=== PATIENT | female | born 1960 | race Caucasian/White ===

== ENCOUNTER 2018-07-20 07:44 | Inpatient (IN) | payer MEDICARE, MEDICAID, SELFPAY ==
[2018-07-20] VITALS (7 sets, daily range): BP systolic 111–138; BP diastolic 60–86; PULSE 91–115; RESP 8–24; TEMP 36.6–37.5; O2SAT 93–99
--- NOTE | 2018-07-20 08:06 | ED.GENADUL_ITS ---
Discharge Plan Disposition Patient Disposition: [facility] Condition: Stable Discharge Details Chief Complaint: SOB Clinical Impression: COPD with acute exacerbation, Ascites, Cirrhosis Reason For Visit: ASCITE, ?SBP, EXACERBATION OF COPD Admit Date/Time: 07/20/18 10:40 Admit Provider: Linda Cadena Attending Provider: Linda Cadena Primary Care Provider: Unknown,Unknown ED Provider: Katy Castellano Discharge Data Discharge Date/Time-TO BE ENTERED AT DEPARTURE: 07/20/18 12:21 Medical Decision Making 58-year-old female with history of COPD and hepatitis C who presents with productive cough and shortness of breath since last night, and diffuse abdominal swelling and intermittent pain for the past 5 years, worsening pain in the left upper quadrant epigastric region today while in the ED. Patient is somewhat of a poor historian, and difficult to obtain full details on the history of her abdominal pain and swelling. She states she drinks twice weekly and denies any recent heavy alcohol use. Heart rate tachycardic. EKG notes a rate of 103, sinus tachycardia no acute ST findings. Patient has diminished breath sounds throughout. She has significant abdominal swelling and distention, tenderness in the epigastric and left upper quadrant. Concern for cirrhosis, pancreatitis, PE. Will place an IV, small bolus IV fluids, labs, urinalysis, CT chest for PE, abdomen and pelvis, and give DuoNeb and steroids. 1000 -- d/w radiologist -- CT noted cirrhosis, ascites, varices, gallstones, ascending colon thickening. No PE. Normal pancreas. Labs reviewed and note transaminitis, moderately increased compared to previous. T. bili 3.9. Troponin negative. Normal WBC. Platelets 101. INR 1.5. Na 131. K 3.2 and Mg 1.6, will replete. 1015 -- d/w surgery power generation technician - will evaluate pt for possible paracentesis. Will call hospitalist for admission. 1030 -- d/w hospitalist - accepts pt for admission. Will admit for ascites of unknown onset and acute copd exacerbation. Medical Records Medical records reviewed: Yes I reviewed the patient's medical records. Imaging Data Radiologic Study: Radiologist's impression: CT SCAN OF THE ABDOMEN AND PELVIS: No priors. The liver is diffusely hypodense. The liver has a lobulated contour with an enlarged left lobe suspicious for hepatic cirrhosis. No hepatic mass is seen. The portal, superior mesenteric and splenic veins are patent. There are stones seen within the gallbladder which is distended. No biliary ductal dilatation is present. The pancreas is unremarkable. The spleen is unremarkable. The adrenal glands are unremarkable. The kidneys show normal and symmetric enhancement. No solid renal mass or obstruction is seen. Hepatic cysts are present. The urinary bladder is intact. The reproductive organs are unremarkable. The abdominal aorta shows mild atherosclerosis. No aneurysmal dilatation. No significant abdominal or pelvic adenopathy or pneumoperitoneum is present. There is a moderate amount of perihepatic and perisplenic ascites and a moderately large amount of pelvic ascites. There are enhancing vessels seen at the gastroesophageal junction and in the anterior abdomen consistent with varices. There is diverticulosis of the colon but no evidence of acute diverticulitis. The does appear to be low attenuation bowel wall thickening in the ascending colon and proximal transverse colon. The remainder of the bowel appears grossly unremarkable. Degenerative changes are seen in the spine. IMPRESSION: 1. Findings most suggestive of hepatic cirrhosis with abdominal and pelvic ascites and varices. 2. Cholelithiasis and gallbladder distention. No biliary ductal dilatation. 3. Hypoattenuating bowel wall thickening in the ascending colon and proximal transverse colon. Inflammatory or infectious colitis can not be excluded. CT SCAN OF THE CHEST: CT angiography was performed with multi slice acquisition and multi planar and 3D reconstruction. There is no evidence of a pulmonary embolus. The thoracic aorta shows atherosclerosis but no aneurysmal dilatation. The heart size is within normal limits. No significant pericardial effusion is seen. No evidence of right ventricular dysfunction is present. No significant thoracic adenopathy is present. No pleural effusion or pneumothorax is identified. Moderately severe emphysematous changes are seen in the lungs particularly the right upper lobe. There are several bullae seen in the lungs. There is are large bullae seen in the lower lobes. No focal consolidating infiltrates or pulmonary nodules are seen. The tracheobronchial tree is unremarkable. Degenerative changes are seen in the spine. There is a right convex scoliosis of the thoracic spine noted. IMPRESSION: 1. No evidence of a pulmonary embolus. Thoracic aortic dissection or aneurysm. 2. Moderately severe emphysema. Lab Data Lab results reviewed: Yes I reviewed the patient's lab results. ECG Data Attestation: I personally reviewed and interpreted this ECG (s) as follows: Interpretation: Rate of 103, sinus tachycardia, no acute ST elevation or depression. QTc 495. QRS 90. HPI General Mode of arrival: EMS . Date/Time Provider Initiated Documentation: 07/20/18 07:58 . Limitations to Documentation: no limitations . Information obtained by: patient . HPI Narrative: Patient is a 58-year-old female who presents to the ED with a complaint of productive cough and shortness of breath since last night. She states her shortness of breath is worse with exertion. Upon further evaluation in room, patient also complains of left upper abdominal pain that she thinks started since she got here. She is unclear on the timeframe and then also states she thinks it might have started 5 years ago. Patient is a poor historian. She states she has not eaten anything for a long time and has not been eating well for the past 5 years. She does also admit to diffuse abdominal swelling for the past 5 years, which is getting progressively worse. She states she has not seen a doctor for the past 7 years. She denies any known fever, chest pain, recent travel, recent surgery, leg pain or swelling. She denies any recent hospital admission. She states she did not receive the flu shot this year. Related Data Home Medications Medication Instructions Recorded Confirmed [id number] 2 tab PO Q6H PRN 07/20/18 07/20/18 [Excedrin Migraine] Allergies Allergy/AdvReac Type Severity Reaction Status Date / Time No Known Allergies Allergy Unverified 07/20/18 07:50 General Stated Complaint: SOB RK: 3 Review of Systems Review of Systems All systems reviewed & are unremarkable except as noted in HPI and below Constitutional Reports as per HPI, Denies chills and Denies fever(s) Eyes Denies blurry vision ENT Denies dizziness, Denies sore throat and Denies throat swelling Cardiovascular Denies chest pain and Reports dyspnea Respiratory Reports cough and Reports dyspnea Gastrointestinal Reports abdominal pain, Denies diarrhea and Denies vomiting Genitourinary Denies hematuria and Denies dysuria Musculoskeletal Denies back pain and Denies numbness Integumentary/Breasts Denies lesions and Denies rash Neurologic Denies dizziness, Denies focal weakness and Denies numbness Allergic/Immunologic Denies throat swelling PFSH Medical History Alcohol abuse (Chronic) Tobacco abuse (Chronic) COPD (chronic obstructive pulmonary disease) (Chronic) Hepatitis C (Chronic) Surgical History History of bilateral tubal ligation (Acute) Social History Smoking and Tabacco status: Current every day Tobacco: How many years used: 44 Pasive smoking exposure: Yes quit status: considering quitting counseling given: provider counseling and support medications alcohol intake: current alcohol intake frequency: 3 or more drinks per day Alcohol type: wine substance use type: former substance user, IV drugs and prescription drug Exam Const General: cooperative and healthy appearing Orientation: alert and awake HENMT Head: normal to inspection Ears: hearing grossly normal bilaterally General nose exam: external nose normal Face and sinus: normal facial exam Mouth: oral mucosae normal Teeth and gingiva: dentition normal Throat: posterior oropharynx normal Eyes General: appearance normal, both eyes and all related structures Eyelids: eyelids normal Pupils: PERRL EOM: EOM intact bilaterally Neck Neck: normal visual inspection Lymphatic: no lymphadenopathy noted Chest Chest: normal inspection of the chest Resp Effort & Inspection: normal respiratory effort and able to speak in complete sentences Auscultation: diminished lung sounds bilaterally throughout Cardio Rate: tachycardic Rhythm: regular rhythm GI Inspection: distended Palpation: firm, no guarding, no hepatosplenomegaly, no masses and tender (throughout, worse in LUQ, epigastric) Auscultation: normal bowel sounds Skin General skin exam: no rashes or lesions noted Neuro General: alert and awake Cognition: normal cognition Speech: speech normal Gait: normal gait Motor: muscle tone normal throughout Sensory Exam: no sensory deficits noted Extrem General: normal to inspection, full ROM and no edema Psych Appearance: grossly normal Mental Status: mental status grossly normal Speech and Movement: speech and movement normal Affect: normal affect Thought Process: normal Course Vital Signs Temperature 98.1 F 07/20/18 07:47 Pulse 115 H 07/20/18 07:47 Respiratory Rate 24 07/20/18 07:47 Blood Pressure 138/78 07/20/18 07:47 Pulse Oximetry 97 07/20/18 07:47 Temperature 98.1 F 07/20/18 07:47 Temperature Source Skin 07/20/18 07:47 Pulse 115 H 07/20/18 07:47 Respiratory Rate 24 07/20/18 07:47 Respiratory Effort 07/20/18 07:53 Respiratory Depth Normal 07/20/18 07:53 Blood Pressure 138/78 07/20/18 07:47 Pulse Oximetry 97 07/20/18 07:47 Oxygen Delivery Method Room Air 07/20/18 07:47 Oxygen Flow Rate 0 07/20/18 07:47 Pain Level 0 07/20/18 07:47
--- NOTE | 2018-07-20 08:16 | DI.CT_ITS ---
SYMPTOMS/DIAGNOSIS: SHORTNESS OF BREATH, LUQ ABD PAIN CT SCAN OF THE ABDOMEN AND PELVIS: No priors. The liver is diffusely hypodense. The liver has a lobulated contour with an enlarged left lobe suspicious for hepatic cirrhosis. No hepatic mass is seen. The portal, superior mesenteric and splenic veins are patent. There are stones seen within the gallbladder which is distended. No biliary ductal dilatation is present. The pancreas is unremarkable. The spleen is unremarkable. The adrenal glands are unremarkable. The kidneys show normal and symmetric enhancement. No solid renal mass or obstruction is seen. Hepatic cysts are present. The urinary bladder is intact. The reproductive organs are unremarkable. The abdominal aorta shows mild atherosclerosis. No aneurysmal dilatation. No significant abdominal or pelvic adenopathy or pneumoperitoneum is present. There is a moderate amount of perihepatic and perisplenic ascites and a moderately large amount of pelvic ascites. There are enhancing vessels seen at the gastroesophageal junction and in the anterior abdomen consistent with varices. There is diverticulosis of the colon but no evidence of acute diverticulitis. The does appear to be low attenuation bowel wall thickening in the ascending colon and proximal transverse colon. The remainder of the bowel appears grossly unremarkable. Degenerative changes are seen in the spine. IMPRESSION: 1. Findings most suggestive of hepatic cirrhosis with abdominal and pelvic ascites and varices. 2. Cholelithiasis and gallbladder distention. No biliary ductal dilatation. 3. Hypoattenuating bowel wall thickening in the ascending colon and proximal transverse colon. Inflammatory or infectious colitis can not be excluded. CT SCAN OF THE CHEST: CT angiography was performed with multi slice acquisition and multi planar and 3D reconstruction. There is no evidence of a pulmonary embolus. The thoracic aorta shows atherosclerosis but no aneurysmal dilatation. The heart size is within normal limits. No significant pericardial effusion is seen. No evidence of right ventricular dysfunction is present. No significant thoracic adenopathy is present. No pleural effusion or pneumothorax is identified. Moderately severe emphysematous changes are seen in the lungs particularly the right upper lobe. There are several bullae seen in the lungs. There is are large bullae seen in the lower lobes. No focal consolidating infiltrates or pulmonary nodules are seen. The tracheobronchial tree is unremarkable. Degenerative changes are seen in the spine. There is a right convex scoliosis of the thoracic spine noted. IMPRESSION: 1. No evidence of a pulmonary embolus. Thoracic aortic dissection or aneurysm. 2. Moderately severe emphysema. The findings were discussed with the emergency department on the date of the examination.
[2018-07-20 08:36] LABS: Abs Immature Grans 0.03 k/cumm (0.0-0.09); Absolute Basophil Count 0.06 k/cumm (0.0-0.2); Absolute Eosinophil Count 0.01 k/cumm (0.0-0.7); Absolute Lymphocyte Count 1.08 k/cumm (1.2-3.4); Absolute Monocyte Count 0.57 k/cumm (0.11-0.7); Absolute Neutrophil Count 5.47 k/cumm (1.2-6.7); Basophils % 0.8; Eosinophils % 0.1; HCT 39.4 % (36.0-46.0); HGB 13.6 g/dL (12.0-15.5); Immature Grans % 0.4; Mean Corp. HGB Concentration 34.5 g/dL (32.0-36.0); Mean Corpuscular Volume 104.2 fL (80-95); Mean Platelet Volume 9.8 fL (8.0-11.0); Monocytes % 7.9; Neutrophils % 75.8; Platelet Count 101 x1000/uL (130-400); RBC 3.78 m/cumm (4.00-5.20); RBC Distribution Width 18.6 % (11.7-14.6); White Blood Cell Count 7.22 k/cumm (4.4-10.8)
[2018-07-20] MEDS: methylPREDNISolone SUCC 125 MG VIAL IVP (08:36)
[2018-07-20] MEDS: Albuterol/Ipratropium 3 ML UPD VIAL UPD ×2 (08:37→14:48)
[2018-07-20] MEDS: Normal Saline 250 ML 500 ML IV (08:37)
--- NOTE | 2018-07-20 08:47 | NUR.NOTE ---
#[address] [facility] Nursing Note:
[2018-07-20 08:56] LABS: ALT 118 U/L (12-78); AST 354 U/L (15-37); Albumin 2.1 g/dL (3.4-5.0); Alkaline Phosphatase 236 U/L (46-116); Anion Gap 11.1 mmol/L (3-11); BUN 3 mg/dL (7-18); Bilirubin, Total 3.9 mg/dL (0.2-1.0); CO2 26.9 mmol/L (21.0-32.0); CREATININE 0.64 mg/dL (0.55-1.02); Calcium 7.8 mg/dL (8.5-10.1); Chloride 93 mmol/L (98-107); Glucose 98 mg/dL (70-100); INR 1.5 (0.9-1.1); Lipase 138 U/L (73-393); Magnesium 1.6 mg/dL (1.8-2.4); NT-proBNP 109 pg/mL; PTT Activated 27.2 sec (21.0-31.4); Potassium 3.2 mmol/L (3.5-5.1); Prothrombin Time 14.7 sec (9.3-11.0); Sodium 131 mmol/L (136-145)
[2018-07-20 08:59] LABS: Troponin I < 0.02 ng/mL (0.00-0.06)
[2018-07-20 09:13] LABS: Ammonia < 10 umol/L (11-32)
[2018-07-20] MEDS: Omnipaque 350 MG/ML 100 ML BTL IV (09:32)
[2018-07-20 09:58] LABS: Bilirubin Moderate (Negative); Blood Negative (Negative); Clarity Clear; Glucose Negative (Negative); Ketones 40 mg/dL (Negative); Leukocyte Esterase Negative (Negative); Nitrite Negative (Negative); pH 6.5 (5-8)
[2018-07-20] MEDS: MAGNESIUM SULFATE 1 GM/100 ML BAG IVPB ×2 (10:01→20:03)
[2018-07-20] MEDS: Potassium Chloride 20 MEQ TABCR 40 MEQ PO (10:01)
--- NOTE | 2018-07-20 10:08 | NUR.NOTE ---
patient sitting up on stretcher edge, feels better to do so, awaiting results Nursing Note:
--- NOTE | 2018-07-20 11:49 | NUR.NOTE ---
report given to ROGER Torres Nursing Note:
--- NOTE | 2018-07-20 12:21 | NUR.NOTE ---
patient transported to floor via RN Nursing Note:
--- NOTE | 2018-07-20 12:22 | W.SURGCON ---
Date of service: 07/20/18 Time of Service: 12:23 Assessment and Plan (1) Ascites with chronic active hepatitis due to toxic liver disease: Current visit: Yes Status: Acute called to see pt by Dr. Castellano in ED regarding abdom pain and cirrhosis. I did review the CT w/ radiology. I don't feel she has enough ascites that this would be causing acute abdominal pain or that there is enough in the abdom to safely do a tap. pt has acute on chronic decompensated Hep C . Her cirrhosis is quite extensive and severe. She needs to get her s/s under control and then have a liver bx and go see GI for treatment. needs to stop smoking adn drinking. no tylenol. will follow (2) Cirrhosis, alcoholic: Current visit: Yes Status: Acute as above (3) Hepatic cirrhosis due to chronic hepatitis C infection: Current visit: Yes Status: Acute as above (4) Hep C w/o coma, chronic: Current visit: Yes Status: Acute as above (5) COPD (chronic obstructive pulmonary disease) with emphysema: Current visit: Yes Status: Acute per hosp. stop smoking and needs inhaler regimen (6) Migraine headache: Current visit: Yes Status: Chronic (7) Chronic post-traumatic stress disorder (PTSD): Current visit: Yes Status: Acute (8) Gallstones: Current visit: Yes Status: Acute small, chronic, and of no consequence History of Present Illness Chief Complaint: abdominal pain and cough Consults Consult date: 07/20/18 Requesting physician: Katy Castellano Review of Systems Constitutional Reports anorexia, Reports body ache(s), Reports difficulty sleeping, Reports fatigue, Reports headache(s), Reports lethargy, Reports poor appetite, Reports weakness and Reports weight loss Comments: no fever/chills. increase in abdominal pain and coughing Eyes Reports system reviewed and no additional complaints, except as docu Comments: no jaundice. no eye. current photophobia due to migraine ENT Reports headache(s) Comments: poor dentition Cardiovascular Comments: no cp or sob. + cough but not productive. smokes 1/4 ppd. is not on any meds Respiratory Denies hemoptysis, Reports pain on inspiration, Reports pain with cough, Denies stridor and Denies wheezing Gastrointestinal Reports abdominal pain, Denies melena, Reports bloating, Denies hematochezia, Reports early satiety, Reports nausea and Reports vomiting Comments: hx of hepC for about 20-30 yrs and never treated. pt does not take tylenol. pt denies extensive hx of drinking. lately she has been drinking more- 1/2 to 3/4 750cc bottle of wine every other day. pt notes decrease in appetite. She says she is not losing wt. she has to make her self throw- up to feel better. not vomiting blood. occ notes blood when she wipes- things she has hemorrhoids. not had a CE in the past. notes increase in abdominal girth Genitourinary Comments: denies Musculoskeletal Comments: migraines Neurologic Reports headache(s) and Reports weakness Psychiatric Comments: is on disability for PTSD Endocrine Reports fatigue Allergic/Immunologic Denies wheezing [facility] Medical History COPD (chronic obstructive pulmonary disease) (Chronic) Hepatitis C (Chronic) Surgical History History of bilateral tubal ligation (Acute) Social History Smoking and Tabacco status: Current every day alcohol intake: current alcohol intake frequency: a few times a week substance use type: former substance user, IV drugs and prescription drug Exam Narrative Exam Narrative: acute migraine HENMT Head: normal to inspection Ears: hearing grossly normal bilaterally General nose exam: external nose normal Mouth: tongue normal Teeth and gingiva: caries and poor dentition Resp Effort & Inspection: normal respiratory effort and able to speak in complete sentences Auscultation: diminished lung sounds Other: +cough non productive Cardio Jugular venous pressure: no JVD Rate: regular rate Rhythm: regular rhythm GI Inspection: obesity and striae Palpation: firm, no guarding, no hernias and no masses Auscultation: hypoactive bowel sounds Other: dissented and tender. pain appears to be more in lower abdominal. pt has the appearance of signif ascites. liver quit enlarged and signs of chronic chirosiss and varicis on CT Extrem General: no clubbing, cyanosis or edema Other: no signif pedal edema Results Last Vital Signs Temp 36.7 C 07/20/18 07:47 Pulse 100 H 07/20/18 10:07 Resp 20 07/20/18 10:07 BP 111/60 07/20/18 10:07 Pulse Ox 98 07/20/18 10:07 Labs : 07/20/18 08:24 07/20/18 08:24 Laboratory Results - last 24 hr 07/20/18 07/20/18 07/20/18 08:24 08:24 08:24 WBC 7.22 RBC 3.78 L Hgb 13.6 Hct 39.4 MCV 104.2 H MCH 36.0 H MCHC 34.5 RDW 18.6 H Plt Count 101 L MPV 9.8 Immature Gran % 0.4 Neutrophils % 75.8 Lymphocytes % 15.0 Monocytes % 7.9 Eosinophils % 0.1 Basophils % 0.8 Absolute Neutrophils 5.47 Absolute Lymphocytes 1.08 L Absolute Monocytes 0.57 Absolute Eosinophils 0.01 Absolute Basophils 0.06 PT 14.7 H INR 1.5 H APTT 27.2 Sodium 131 L Potassium 3.2 L Chloride 93 L Carbon Dioxide 26.9 Anion Gap 11.1 H BUN 3 L Creatinine 0.64 Estimated GFR/1.73 m2 >= 60.00 Glucose 98 Calcium 7.8 L Magnesium 1.6 L Total Bilirubin 3.9 H AST 354 H ALT 118 H Alkaline Phosphatase 236 H Ammonia Troponin I < 0.02 NT-Pro-B Natriuret Pep 109 Total Protein 9.0 H Albumin 2.1 L Lipase 138 Urine Color Urine Clarity Urine pH Ur Specific [place] Urine Protein Urine Ketones Urine Blood Urine Nitrite Urine Bilirubin Urine Urobilinogen Ur Leukocyte Esterase Urine Glucose 07/20/18 07/20/18 08:55 09:50 WBC RBC Hgb Hct MCV MCH MCHC RDW Plt Count MPV Immature Gran % Neutrophils % Lymphocytes % Monocytes % Eosinophils % Basophils % Absolute Neutrophils Absolute Lymphocytes Absolute Monocytes Absolute Eosinophils Absolute Basophils PT INR APTT Sodium Potassium Chloride Carbon Dioxide Anion Gap BUN Creatinine Estimated GFR/1.73 m2 Glucose Calcium Magnesium Total Bilirubin AST ALT Alkaline Phosphatase Ammonia < 10 L Troponin I NT-Pro-B Natriuret Pep Total Protein Albumin Lipase Urine Color [place] Urine Clarity Clear Urine pH 6.5 Ur Specific [place] 1.010 Urine Protein Negative Urine Ketones 40 H Urine Blood Negative Urine Nitrite Negative Urine Bilirubin Moderate H Urine Urobilinogen 4.0 H Ur Leukocyte Esterase Negative Urine Glucose Negative Imaging Abdomen CT scan report/results: other (I did review the CT w/ rads. again- signs of severe long standing cirrhosis w/ extensive varices. She does have ascites- but not a lg amount (not lg enough to safely tap). gb is disstended w/ sm stones. CBD and pancrease are nl. no bowel obstructions. no masses )
[2018-07-20] MEDS: Heparin 5,000 UNITS/ML VIAL 5000 UNITS SC (14:35)
[2018-07-20] MEDS: oxyCODONE 5 MG TAB PO (17:27)
[2018-07-20] MEDS: Furosemide 20 MG TAB PO (18:33)
[2018-07-20] MEDS: Spironolactone 50 MG TAB PO (18:33)
[2018-07-20] MEDS: Normal Saline Flush 10 ML SYR IVP ×3 (18:45→22:39)
--- NOTE | 2018-07-20 19:49 | HPE_ITS ---
Date of service: 07/20/18 Time of Service: 18:00 Assessment and Plan (1) Ascites with chronic active hepatitis due to toxic liver disease: Current visit: Yes Status: Acute Ideally, the patient would have paracenthesis. Surgery evaluated the patient and feels that there is not a big enough pocket of fluid for paracenthesis. We will obtain an ultrasound. Meanwhile, there is a concern for SBP given abdominal pain. I doubt colitis due to reports of no change in bowel habits. Will cover the patient with rocephin and start aldactone/lasix. If tolerates, would then add a beta charmaine as there is evidence of varices. Will obtain hepatitis studies. Will need follow up with GI for EGD. Checking hemoccult. (2) Acute exacerbation of chronic obstructive pulmonary disease (COPD): Current visit: Yes Status: Acute Mild. I suspect that a lot of the shortness of breath has more to do with abdominal distention. For this reason, will diurese. Obtain sputum culture. Cover with azithromycin, rocephin, PO steroids as I hear no bronchospasm, and nebs. (3) Cirrhosis, alcoholic: Current visit: Yes Status: Chronic As above (4) Hepatic cirrhosis due to chronic hepatitis C infection: Current visit: Yes Status: Chronic As above (5) Varices of other sites: Current visit: Yes Status: Acute Will need outpatient EGD. For now, start PPI and consider beta charmaine if tolerates aldactone/lasix. (6) Breast pain in female: Current visit: Yes Status: Acute Likely due to edema. Will attempt to obtain mammography vs ultrasound tomorrow. (7) Alcohol abuse: Current visit: Yes Status: Chronic Placed on CIWA and written for a dose of IV thiamine. WIll provide PO vitamins as patient tolerates PO. (8) Alcoholic ketoacidosis: Current visit: Yes Status: Acute Should resolve without intervention (9) Hypomagnesemia: Current visit: Yes Status: Acute repleted - monitor (10) Hypokalemia: Current visit: Yes Status: Acute repleted - monitor (11) Tobacco abuse: Current visit: Yes Status: Acute cessation advised - patient is already trying to quit. Provide nicotrol. (12) Discharge planning issues: Current visit: Yes Status: Acute Full code (13) DVT prophylaxis: Current visit: Yes Status: Acute SCD's + TEDs as there is evidence of varices on imaging. History of Present Illness Chief Complaint: Abdominal pain and swelling Narrative: Ms Fong is a 58 year old female with PMHx of Hepatitis C, COPD, alcohol and tobacco abuse who presented to [facility] ED today complaining of abdominal swelling that developed 2-3 months ago, became painful about 1 week ago, and that she had never had before. The pain is in her LLQ as well as in her epigastrium. She states she has not had any nausea, that her bowel movements are regular and have not changed in color. She has not seen tarry stools or blood. She also reports a cough productive of green sputum and shortness of breath x 1 - 2 weeks. No wheezing. She does not wear oxygen or use inhalers or any medications at home. She also reports L breast pain, reproducible with palpation, that she only noticed today. She is not up to date on her mammogram. She does have a history of a breast nodule on the R, but states it was benign. Review of Systems Review of Systems 12 systems reviewed. Pertinent positives and negatives are as per HPI. Additionally, the patient reports having dark urine today. [facility] Medical History Alcohol abuse (Chronic) Tobacco abuse (Chronic) COPD (chronic obstructive pulmonary disease) (Chronic) Hepatitis C (Chronic) Surgical History History of bilateral tubal ligation (Acute) Social History Smoking and Tabacco status: Current every day Tobacco: How many years used: 44 Pasive smoking exposure: Yes quit status: considering quitting counseling given: provider counseling and support medications alcohol intake: current alcohol intake frequency: 3 or more drinks per day Alcohol type: wine substance use type: former substance user, IV drugs and prescription drug Meds Home Medications Medication Instructions Recorded Confirmed Type [id number] 2 tab PO Q6H PRN 07/20/18 07/20/18 History [Excedrin Migraine] Allergies Allergy/AdvReac Type Severity Reaction Status Date / Time No Known Allergies Allergy Unverified 07/20/18 07:50 Exam Narrative Exam Narrative: General: Jaundiced middle aged female, sitting uncomfortably in bed, with very distended abdomen/ascites, having hiccups, anxious Neurological: A&Ox3, no focal deficits Psychiatric: anxious, otherwise appropriate speech pattern/content Skin: no bruises/rashes; jaundiced HEENT: atraumatic, normocephalic, EOMI, Dry MM, clear oropharynx, no submandibular or cervical lymphadenopathy, no goiter or JVD Cardiovascular: RRR, mildly tachycardic, no m/r/g Lungs: Diminished at B bases, but otherwise clear to auscultation B Breat exam: both breasts are diffusely TTP, but there is also a chest wall tenderness component. I do not palpate any nodules Gastrointestinal: abdomen very distended with ascites, diffusely tender Extremities: +1 edema BLE's, no clubbing or cyanosis, 2+ pedal pulses B Results Imaging Additional studies: CT abdomen/pelvis: 1. Findings most suggestive of hepatic cirrhosis with abdominal and pelvic ascites and varices. 2. Cholelithiasis and gallbladder distention. No biliary ductal dilatation. 3. Hypoattenuating bowel wall thickening in the ascending colon and proximal transverse colon. Inflammatory or infectious colitis can not be excluded. CT chest: 1. No evidence of a pulmonary embolus. Thoracic aortic dissection or aneurysm. 2. Moderately severe emphysema. Labs : 07/20/18 08:24 07/20/18 08:24 Laboratory Results - last 24 hr 07/20/18 07/20/18 07/20/18 08:24 08:24 08:24 WBC 7.22 RBC 3.78 L Hgb 13.6 Hct 39.4 MCV 104.2 H MCH 36.0 H MCHC 34.5 RDW 18.6 H Plt Count 101 L MPV 9.8 Immature Gran % 0.4 Neutrophils % 75.8 Lymphocytes % 15.0 Monocytes % 7.9 Eosinophils % 0.1 Basophils % 0.8 Absolute Neutrophils 5.47 Absolute Lymphocytes 1.08 L Absolute Monocytes 0.57 Absolute Eosinophils 0.01 Absolute Basophils 0.06 PT 14.7 H INR 1.5 H APTT 27.2 Sodium 131 L Potassium 3.2 L Chloride 93 L Carbon Dioxide 26.9 Anion Gap 11.1 H BUN 3 L Creatinine 0.64 Estimated GFR/1.73 m2 >= 60.00 Glucose 98 Calcium 7.8 L Magnesium 1.6 L Total Bilirubin 3.9 H AST 354 H ALT 118 H Alkaline Phosphatase 236 H Ammonia Troponin I < 0.02 NT-Pro-B Natriuret Pep 109 Total Protein 9.0 H Albumin 2.1 L Lipase 138 Urine Color Urine Clarity Urine pH Ur Specific [place] Urine Protein Urine Ketones Urine Blood Urine Nitrite Urine Bilirubin Urine Urobilinogen Ur Leukocyte Esterase Urine Glucose 07/20/18 07/20/18 08:55 09:50 WBC RBC Hgb Hct MCV MCH MCHC RDW Plt Count MPV Immature Gran % Neutrophils % Lymphocytes % Monocytes % Eosinophils % Basophils % Absolute Neutrophils Absolute Lymphocytes Absolute Monocytes Absolute Eosinophils Absolute Basophils PT INR APTT Sodium Potassium Chloride Carbon Dioxide Anion Gap BUN Creatinine Estimated GFR/1.73 m2 Glucose Calcium Magnesium Total Bilirubin AST ALT Alkaline Phosphatase Ammonia < 10 L Troponin I NT-Pro-B Natriuret Pep Total Protein Albumin Lipase Urine Color [place] Urine Clarity Clear Urine pH 6.5 Ur Specific [place] 1.010 Urine Protein Negative Urine Ketones 40 H Urine Blood Negative Urine Nitrite Negative Urine Bilirubin Moderate H Urine Urobilinogen 4.0 H Ur Leukocyte Esterase Negative Urine Glucose Negative Last Vital Signs Temp 37.5 C 07/20/18 15:49 Pulse 107 H 07/20/18 15:49 Resp 22 07/20/18 15:49 BP 120/81 07/20/18 15:49 Pulse Ox 95 07/20/18 15:49
[2018-07-20] MEDS: Pantoprazole 40 MG VIAL IVP (20:02)
[2018-07-20] MEDS: THIAMINE 100 MG in Normal Saline 100 ML 200 MG IVPB (21:31)
[2018-07-20] MEDS: Azithromycin 500 MG VIAL (21:43)
[2018-07-20] MEDS: LORazepam 1 MG TAB PO/SL (22:06)
[2018-07-21] MEDS: Normal Saline Flush 10 ML SYR IVP ×5 (03:51→20:13)
--- NOTE | 2018-07-21 04:02 | NUR.NOTE ---
Nursing Note: Pt was medicated twice for abdominal pain that radiate towards the left side of chest area, and with good relief. Lorazepam po given for CIWA score of 5 and pt verbalized of itchiness on left IV site.. Independent to toilet without concern. Needs attended.Call lights at reach.
[2018-07-21 04:45] VITALS: BP 112/69; PULSE 94; RESP 18; TEMP 36.5; O2SAT 93
--- NOTE | 2018-07-21 07:23 | PDOC.CMIN ---
- If Service Date Differs Date of service: 07/21/18 Time of Service: 07:23 Care Management Initial Assess REASON FOR HOSPITALIZATION:: Ascites with chronic active hepatitis due to toxic liver disease, COPD Exacerbation. PAST MEDICAL HISTORY/PAST SURGICAL HISTORY:: Alcohol abuse (Chronic). Tobacco abuse (Chronic). COPD (chronic obstructive pulmonary disease) (Chronic). Hepatitis C (Chronic). History of bilateral tubal ligation (Acute) PREVIOUS FUNCTIONAL STATUS/SOCIAL/FAMILY SUPPORTS:: Lisseth resides at the [facility], and states that she enjoys it there. She states that she previously resided in [place], and moved to [facility] to help her mom with Parkinsons. Lisseth has two children, one in [place] and one in [place] whom are supportive. 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 Lisseth no longer drives and depends on [facility] for transportation. CURRENT FUNCTIONAL STATUS:: Currently Lisseth is lying in bed when this technical writer visits this morning, she is pleasant and receptive to discussion. ADVANCE DIRECTIVES:: None on file Has patient been provided with information about the portal?: Yes Did the patient sign up for the portal?: No CODE STATUS:: Full Code INSURANCE COVERAGE / FINANCIAL ISSUES:: Medicare, Medicaid CURRENT HOME/COMMUNITY SERVICES/EQUIPMENT:: Currently Lisseth has no medical equipment in the community. She has a counselor Sherman Martinez that she sees 2x/month, and states that she also volunteers at [employer]. Lisseth attends AA meetings throughout the week, she reports being sober for 21 years, and recently quitting smoking. Lisseth has reported to other staff members that she continues to consume alcohol. PRIMARY CARE PHYSICIAN:: No [facility] to assist with obtaining new PCP POTENTIAL DISCHARGE NEEDS:: F/U appointment with PCP PATIENT/FAMILY EDUCATION NEEDS:: Review DC instructions, any limitations, and ongoing DC planning discussion. Discuss 'Ask Me Three' ANTICIPATED BARRIERS TO DISCHARGE:: None identified at this time. TRANSPORTATION:: Via [facility] PLAN:: Lisseth will return home with no anticipated services. She will F/U with PCP and plan of care as prescribed. Lisseth to transport via [facility] at time of DC.
--- NOTE | 2018-07-21 07:31 | INITIAL_ITS ---
- If Service Date Differs Date of service: 07/21/18 Time of Service: 07:23 Care Management Initial Assess REASON FOR HOSPITALIZATION:: Ascites with chronic active hepatitis due to toxic liver disease, COPD Exacerbation. PAST MEDICAL HISTORY/PAST SURGICAL HISTORY:: Alcohol abuse (Chronic). Tobacco abuse (Chronic). COPD (chronic obstructive pulmonary disease) (Chronic). Hepatitis C (Chronic). History of bilateral tubal ligation (Acute) PREVIOUS FUNCTIONAL STATUS/SOCIAL/FAMILY SUPPORTS:: Lisseth resides at the [facility], and states that she enjoys it there. She states that she previously resided in [place], and moved to [facility] to help her mom with Parkinsons. Lisseth has two children, one in [place] and one in [place] whom are supportive. 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 Lisseth no longer drives and depends on [facility] for transportation. CURRENT FUNCTIONAL STATUS:: Currently Lisseth is lying in bed when this newswriter visits this morning, she is pleasant and receptive to discussion. ADVANCE DIRECTIVES:: None on file Has patient been provided with information about the portal?: Yes Did the patient sign up for the portal?: No CODE STATUS:: Full Code INSURANCE COVERAGE / FINANCIAL ISSUES:: Medicare, Medicaid CURRENT HOME/COMMUNITY SERVICES/EQUIPMENT:: Currently Lisseth has no medical equipment in the community. She has a counselor Sherman Martinez that she sees 2x/month, and states that she also volunteers at [employer]. Lisseth attends AA meetings throughout the week, she reports being sober for 21 years, and recently quitting smoking. Lisseth has reported to other staff members that she continues to consume alcohol. PRIMARY CARE PHYSICIAN:: No [facility] to assist with obtaining new PCP POTENTIAL DISCHARGE NEEDS:: F/U appointment with PCP PATIENT/FAMILY EDUCATION NEEDS:: Review DC instructions, any limitations, and ongoing DC planning discussion. Discuss 'Ask Me Three' ANTICIPATED BARRIERS TO DISCHARGE:: None identified at this time. TRANSPORTATION:: Via [facility] PLAN:: Lisseth will return home with no anticipated services. She will F/U with PCP and plan of care as prescribed. Lisseth to transport via [facility] at time of DC.
[2018-07-21 07:35] LABS: Abs Immature Grans 0.03 k/cumm (0.0-0.09); Absolute Basophil Count 0.01 k/cumm (0.0-0.2); Absolute Lymphocyte Count 1.25 k/cumm (1.2-3.4); Absolute Monocyte Count 0.83 k/cumm (0.11-0.7); Basophils % 0.1; HCT 34.9 % (36.0-46.0); HGB 11.9 g/dL (12.0-15.5); Immature Grans % 0.3; Lymphocytes % 10.8; Mean Corp. HGB Concentration 34.1 g/dL (32.0-36.0); Mean Corpuscular Hemoglobin 36.3 pg (27.0-33.0); Mean Corpuscular Volume 106.4 fL (80-95); Mean Platelet Volume 9.6 fL (8.0-11.0); Monocytes % 7.1; Neutrophils % 81.7; Platelet Count 93 x1000/uL (130-400); RBC 3.28 m/cumm (4.00-5.20); RBC Distribution Width 18.9 % (11.7-14.6); White Blood Cell Count 11.62 k/cumm (4.4-10.8)
--- NOTE | 2018-07-21 08:00 | DI.US_ITS ---
SYMPTOM/DIAGNOSIS: ABD PAIN, ASCITES ABDOMEN ULTRASOUND: Routine examination. Comparison CT scan is 07/20/18. The aorta was not visualized due to overlying bowel. The IVC is unremarkable. The liver measures 18 cm. in length. It is hyperechoic with a coarsened echotexture. No hepatic mass is seen. The contour of the liver is nodular. The findings are suspicious for hepatic cirrhosis. There are mobile stones seen within the gallbladder. There is gallbladder sludge and pericholecystic fluid. The gallbladder wall measures .4 cm. Common duct is within normal limits at .6 cm. The pancreas was not visualized due to overlying bowel. The spleen is normal in size. The kidneys are unremarkable. There is mild to moderate abdominal ascites seen in all four quadrants. Portal venous flow is hepatopetal. IMPRESSION: 1. Appearance of the liver suggests hepatic cirrhosis. 2. Cholelithiasis and gallbladder sludge. Gallbladder wall mildly thickened. Acute cholecystitis cannot be entirely excluded however some of these findings may be related to the patient's liver status and ascites. 3. Mild to moderate abdominal ascites.
[2018-07-21 08:01] LABS: ALT 97 U/L (12-78); AST 285 U/L (15-37); Absolute Neutrophil Count 9.49 k/cumm (1.2-6.7); Albumin 1.8 g/dL (3.4-5.0); Alkaline Phosphatase 169 U/L (46-116); BUN 4 mg/dL (7-18); Bilirubin, Total 2.7 mg/dL (0.2-1.0); CREATININE 0.74 mg/dL (0.55-1.02); Calcium 7.3 mg/dL (8.5-10.1); Chloride 98 mmol/L (98-107); Glucose 115 mg/dL (70-100); Magnesium 2.1 mg/dL (1.8-2.4); Potassium 3.4 mmol/L (3.5-5.1); Sodium 133 mmol/L (136-145); TSH (W/Ref FT4) 1.82 uIU/mL (0.358-3.74); Total Protein 7.5 g/dL (6.4-8.2)
[2018-07-21 08:24] LABS: Anisocytosis 1+; Diff Comment RBC Morph Reviewed; Macrocytosis 2+; Poikilocytes 1+; Polychromasia Present
[2018-07-21 08:31] VITALS: BP 124/86; PULSE 92; RESP 18; TEMP 36.3; O2SAT 93
[2018-07-21] MEDS: predniSONE 20 MG TAB 60 MG PO (09:44)
[2018-07-21] MEDS: Spironolactone 50 MG TAB PO (09:44)
[2018-07-21] MEDS: Pantoprazole 40 MG TABCR PO (09:45)
[2018-07-21] MEDS: Thiamine 100 MG TAB PO (09:45)
[2018-07-21] MEDS: Multivitamin TAB 1 TAB PO (09:46)
[2018-07-21] MEDS: Furosemide 20 MG TAB PO (09:46)
[2018-07-21] MEDS: Folic Acid 1 MG TAB PO (09:46)
[2018-07-21] MEDS: Potassium Chloride 20 MEQ TABCR 40 MEQ PO (10:43)
--- NOTE | 2018-07-21 11:40 | PHARADMIT ---
Addendum entered by Lupis Matamoros 07/23/18 14:47: Ceftriaxone & Azithromycin day#4 tonight CIWA 1 starting Gabapentin and Oxazepam standing orders to help withdrawl symptoms Paracentesis resulted in ~ 200ml fluid, pain 02/07, afebrile, weight up ~1.3kg since admission lytes ok although Mag & K+ oral replacement, Prednisone decreased to 40mg daily Cultures pending for Paracentesis x 2 samples Original Note: Admission Pharmacy Clinical Review Ascites, Exacerbation of COPD Code Status Full Code Current Weight 72.575 kg Renally Cleared and Narrow Therapeutic Index Meds CrCl~61.86ml/min QTc Value / Action Taken QTC 495 BP Control, Fever BP 124/86 HR 90-100's Afebrile Electrolytes reviewed K+ 3.4 Na++ 133 Mag 2.1 DVT Prophylaxis SCD's Opiate Usage / Scheduled Bowel Regimen Ordered Oxy/MS-yes bowel meds Plt/SCr for Heparin / Enoxaparin Plt 93 SCr 0.74 INR for Warfarin H/H stable, WBC/Bands H/H 11.9/34.9 WBC 11.62 (Prednisone) Antibiotic appropriateness Azithromycin 500mg IV/Rocephin IV (no chest Xray?) Today 07/21 is day#2 in th evening Cultures and Sensitivities Micro sputum pending (possible contamination) Surgical ABX d/c within 24 hr DM control / Insulin Dosing BG 115 Heart Failure (Check EF%) (KEVIN's, B-Block, Diuretics) Lasix, Spironolactone IV to PO Switch Home Meds Reviewed Home Meds Not Ordered Excedrin, Prazosin, Seroquel, Lorazepam Comments CIWA:1 Ascites pain: 10/07 Surgical consult for abdominal tap/drain ascites? CT results: Chronic active hepatitis C Mammogram or Ultrasound today of abdomen/breasts Pt reportedly looks Jaundiced LFT's and Bilirubin levels elevated, but trending down Follow diuresis/weight
[2018-07-21 11:59] VITALS: BP 110/71; PULSE 98; RESP 18; TEMP 36.5; O2SAT 93
[2018-07-21 14:06] VITALS: PULSE 103; RESP 24; RESP 4; RESP 7; O2SAT 95
[2018-07-21] MEDS: Albuterol/Ipratropium 3 ML UPD VIAL UPD (14:06)
[2018-07-21 16:00] VITALS: BP 101/62; PULSE 98; RESP 18; TEMP 36.8; O2SAT 92
--- NOTE | 2018-07-21 18:20 | PGE_ITS ---
Date of Service Date of service: 07/21/18 Time of Service: 15:15 Assessment and Plan (1) Ascites with chronic active hepatitis due to toxic liver disease: Current visit: Yes Status: Acute Continue aldactone. Ultrasound done today - will review with general surgery to see if they feel there is enough fluid to drain. Continue empiric rocephin though I now doubt SBP - patient has preserved mental status. Will need GI follow up. Hepatitis studies are pending. Hemoccult pending. (2) Acute exacerbation of chronic obstructive pulmonary disease (COPD): Current visit: Yes Status: Acute Mild. Improved. Continue diuresis. Add incentive spirometry. Continue azithromycin, rocephin, PO steroids and nebs. (3) Cirrhosis, alcoholic: Current visit: Yes Status: Chronic As above (4) Hepatic cirrhosis due to chronic hepatitis C infection: Current visit: Yes Status: Chronic As above (5) Varices of other sites: Current visit: Yes Status: Acute Will need outpatient EGD. Continue PPI and consider beta charmaine tomorrow after 1 day of diuresis. (6) Breast pain in female: Current visit: Yes Status: Acute Likely due to edema. Will need to have outpatient mammography. (7) Alcohol abuse: Current visit: Yes Status: Chronic Continue CIWA, prn ativan, PO vitamins as patient tolerates PO. (8) Alcoholic ketoacidosis: Current visit: Yes Status: Acute Should resolve without intervention (9) Hypomagnesemia: Current visit: Yes Status: Acute repleted - monitor (10) Hypokalemia: Current visit: Yes Status: Acute repleted - monitor (11) Tobacco abuse: Current visit: Yes Status: Acute cessation advised - patient is already trying to quit. Provide nicotrol. (12) Discharge planning issues: Current visit: Yes Status: Acute Full code (13) DVT prophylaxis: Current visit: Yes Status: Acute SCD's + TEDs as there is evidence of varices on imaging. Subjective Interval history since last seen: Ms Fong states she feels a little better. Denies dizziness. Her cough is less productive, sputum no longer green. Continues to report chest pain - in her breasts, especially her left. Her mammogram will have to be done as outpatient - she verbalized understanding. Denies nausea, vomiting. No BM's since being in the hospital. Abdominal pain is a little better. Exam Narrative Exam Narrative: General: Jaundiced middle aged female, laying in bed at a 30 degree angle, looks more comfortable, A&Ox3 HEENT: EOMI, Dry MM Cardiovascular: RRR, mildly tachycardic, no m/r/g Lungs: Diminished at B bases, but otherwise clear to auscultation B Gastrointestinal: abdomen very distended with ascites, less tender today. There is very minimal RUQ tenderness. Extremities: +1 edema BLE's, no clubbing or cyanosis, 2+ pedal pulses B Objective Objective Clinical Data: Abnormal lab results 07/21/18 07/21/18 Range/Units 07:08 07:08 WBC 11.62 H D (4.4-10.8) k/cumm RBC 3.28 L (4.00-5.20) m/cumm Hgb 11.9 L (12.0-15.5) g/dL Hct 34.9 L (36.0-46.0) % MCV 106.4 H (80-95) fL MCH 36.3 H (27.0-33.0) pg RDW 18.9 H (11.7-14.6) % Plt Count 93 L (130-400) x1000/uL Absolute Neutrophils 9.49 H (1.2-6.7) k/cumm Absolute Monocytes 0.83 H (0.11-0.7) k/cumm Sodium 133 L (136-145) mmol/L Potassium 3.4 L (3.5-5.1) mmol/L BUN 4 L (7-18) mg/dL Glucose 115 H (70-100) mg/dL Calcium 7.3 L (8.5-10.1) mg/dL Total Bilirubin 2.7 H (0.2-1.0) mg/dL Conjugated Bilirubin 1.80 H (0.00-0.20) mg/dL AST 285 H (15-37) U/L ALT 97 H (12-78) U/L Alkaline Phosphatase 169 H (46-116) U/L Albumin 1.8 L (3.4-5.0) g/dL Vital Signs Temperature 36.8 C 07/21/18 16:00 Temperature Source Tympanic 07/21/18 16:00 Pulse 98 H 07/21/18 16:00 Pulse Rhythm Regular 07/21/18 08:00 Respiratory Rate 18 07/21/18 16:00 Respiratory Effort Short of Breath 07/21/18 08:00 Respiratory Depth Normal 07/21/18 08:00 Respiratory Pattern Normal 07/21/18 08:00 Blood Pressure 101/62 07/21/18 16:00 Pulse Oximetry 92 L 07/21/18 16:00 Oxygen Delivery Method Room Air 07/21/18 16:00 Oxygen Flow Rate 0 07/21/18 16:00 Pain Level 7 07/21/18 18:13 Comment 07/21/18 04:45 Intake & Output 07/20/18 07/21/18 07/21/18 23:59 11:59 23:59 Intake Total 761 / 1011 1110 / 1360 250 / 1360 Output Total 1250 / 1250 350 / 350 Balance -489 / -239 760 / 1010 250 / 1010 Weight 72.575 kg Intake: IV 121 / 371 60 / 60 Oral 640 / 640 1050 / 1300 250 / 1300 Output: Urine 1250 / 1250 350 / 350 Other: Urine Color Yellow Pale Straw Yellow Urine Appearance Clear Clear Urine Odor Normal None Voiding Methods Toilet Toilet Laboratory Results WBC 11.62 k/cumm (4.4-10.8) H D 07/21/18 07:08 RBC 3.28 m/cumm (4.00-5.20) L 07/21/18 07:08 Hgb 11.9 g/dL (12.0-15.5) L 07/21/18 07:08 Hct 34.9 % (36.0-46.0) L 07/21/18 07:08 MCV 106.4 fL (80-95) H 07/21/18 07:08 MCH 36.3 pg (27.0-33.0) H 07/21/18 07:08 MCHC 34.1 g/dL (32.0-36.0) 07/21/18 07:08 RDW 18.9 % (11.7-14.6) H 07/21/18 07:08 Plt Count 93 x1000/uL (130-400) L 07/21/18 07:08 MPV 9.6 fL (8.0-11.0) 07/21/18 07:08 Immature Gran % 0.3 07/21/18 07:08 Neutrophils % 81.7 07/21/18 07:08 Lymphocytes % 10.8 07/21/18 07:08 Monocytes % 7.1 07/21/18 07:08 Eosinophils % 0.0 07/21/18 07:08 Basophils % 0.1 07/21/18 07:08 Absolute Neutrophils 9.49 k/cumm (1.2-6.7) H 07/21/18 07:08 Absolute Lymphocytes 1.25 k/cumm (1.2-3.4) 07/21/18 07:08 Absolute Monocytes 0.83 k/cumm (0.11-0.7) H 07/21/18 07:08 Absolute Eosinophils 0.00 k/cumm (0.0-0.7) 07/21/18 07:08 Absolute Basophils 0.01 k/cumm (0.0-0.2) 07/21/18 07:08 Differential Comment Rbc morph reviewed 07/21/18 07:08 RBC Morphology See below 07/21/18 07:08 Polychromasia Present 07/21/18 07:08 Poikilocytosis 1+ 07/21/18 07:08 Anisocytosis 1+ 07/21/18 07:08 Macrocytosis 2+ 07/21/18 07:08 PT 14.7 sec (9.3-11.0) H 07/20/18 08:24 INR 1.5 (0.9-1.1) H 07/20/18 08:24 APTT 27.2 sec (21.0-31.4) 07/20/18 08:24 Sodium 133 mmol/L (136-145) L 07/21/18 07:08 Potassium 3.4 mmol/L (3.5-5.1) L 07/21/18 07:08 Chloride 98 mmol/L (98-107) 07/21/18 07:08 Carbon Dioxide 31.0 mmol/L (21.0-32.0) 07/21/18 07:08 Anion Gap 4.0 mmol/L (3-11) 07/21/18 07:08 BUN 4 mg/dL (7-18) L 07/21/18 07:08 Creatinine 0.74 mg/dL (0.55-1.02) 07/21/18 07:08 Estimated GFR/1.73 m2 >= 60.00 (mL/min/1.73m2) 07/21/18 07:08 Glucose 115 mg/dL (70-100) H 07/21/18 07:08 Calcium 7.3 mg/dL (8.5-10.1) L 07/21/18 07:08 Magnesium 2.1 mg/dL (1.8-2.4) 07/21/18 07:08 Total Bilirubin 2.7 mg/dL (0.2-1.0) H 07/21/18 07:08 Conjugated Bilirubin 1.80 mg/dL (0.00-0.20) H 07/21/18 07:08 AST 285 U/L (15-37) H 07/21/18 07:08 ALT 97 U/L (12-78) H 07/21/18 07:08 Alkaline Phosphatase 169 U/L (46-116) H 07/21/18 07:08 Ammonia < 10 umol/L (11-32) L 07/20/18 08:55 Troponin I < 0.02 ng/mL (0.00-0.06) 07/20/18 08:24 NT-Pro-B Natriuret Pep 109 pg/mL (-299) 07/20/18 08:24 Total Protein 7.5 g/dL (6.4-8.2) 07/21/18 07:08 Albumin 1.8 g/dL (3.4-5.0) L 07/21/18 07:08 Lipase 138 U/L (73-393) 07/20/18 08:24 TSH 1.82 uIU/mL (0.358-3.74) 07/21/18 07:08 Urine Color [place] (Yellow) 07/20/18 09:50 Urine Clarity Clear 07/20/18 09:50 Urine pH 6.5 (5-8) 07/20/18 09:50 Ur Specific [place] 1.010 (1.005-1.025) 07/20/18 09:50 Urine Protein Negative mg/dL (Negative) 07/20/18 09:50 Urine Ketones 40 mg/dL (Negative) H 07/20/18 09:50 Urine Blood Negative (Negative) 07/20/18 09:50 Urine Nitrite Negative (Negative) 07/20/18 09:50 Urine Bilirubin Moderate (Negative) H 07/20/18 09:50 Urine Urobilinogen 4.0 EU/dL (Up TO 0.2) H 07/20/18 09:50 Ur Leukocyte Esterase Negative (Negative) 07/20/18 09:50 Urine Glucose Negative mg/dL (Negative) 07/20/18 09:50 US abdomen: 1. Appearance of the liver suggests hepatic cirrhosis. 2. Cholelithiasis and gallbladder sludge. Gallbladder wall mildly thickened. Acute cholecystitis cannot be entirely excluded however some of these findings may be related to the patient's liver status and ascites. 3. Mild to moderate abdominal ascites.
[2018-07-21] MEDS: LORazepam 1 MG TAB PO/SL (20:08)
[2018-07-21] MEDS: Docusate Sodium 100 MG CAP PO (20:08)
[2018-07-21] MEDS: AZITHROMYCIN 500 MG in Normal Saline 500 ML 166.6 MG IVPB (20:11)
[2018-07-21] MEDS: oxyCODONE 5 MG TAB PO (20:13)
[2018-07-21 21:23] VITALS: BP 124/79; PULSE 97; RESP 18; O2SAT 95
[2018-07-22 00:12] VITALS: BP 124/76; PULSE 95; RESP 18; TEMP 36.6; O2SAT 94
[2018-07-22 03:05] VITALS: BP 148/100; PULSE 86; RESP 18; TEMP 36.8; O2SAT 96
[2018-07-22] MEDS: Normal Saline Flush 10 ML SYR IVP ×5 (03:09→20:15)
--- NOTE | 2018-07-22 04:19 | NUR.NOTE ---
Nursing Note: At 1930 hrs. beginning of the shift, patient was crying and increasingly anxious, she verbalized of being neglected, requested to get nicotrol and pain med was not given The communications writer checked the pc it was documented that morphine was given around 1800 hrs and she denied because it was not on her list. Nursing assessment done and scored on CIWA of 7. Lorazepam po given and oxy and pt able to slept and woke up in good spirit.
[2018-07-22] MEDS: Pantoprazole 40 MG TABCR PO (06:21)
[2018-07-22] MEDS: oxyCODONE 5 MG TAB PO ×3 (06:25→20:49)
[2018-07-22 07:11] LABS: Abs Immature Grans 0.07 k/cumm (0.0-0.09); Absolute Basophil Count 0.01 k/cumm (0.0-0.2); Absolute Eosinophil Count 0.01 k/cumm (0.0-0.7); Absolute Lymphocyte Count 2.37 k/cumm (1.2-3.4); Absolute Monocyte Count 0.74 k/cumm (0.11-0.7); Absolute Neutrophil Count 8.88 k/cumm (1.2-6.7); Basophils % 0.1; Eosinophils % 0.1; HCT 35.9 % (36.0-46.0); HGB 12.6 g/dL (12.0-15.5); Immature Grans % 0.6; Lymphocytes % 19.6; Mean Corp. HGB Concentration 35.1 g/dL (32.0-36.0); Mean Corpuscular Hemoglobin 37.4 pg (27.0-33.0); Mean Corpuscular Volume 106.5 fL (80-95); Mean Platelet Volume 9.5 fL (8.0-11.0); Monocytes % 6.1; Neutrophils % 73.5; RBC 3.37 m/cumm (4.00-5.20); RBC Distribution Width 19.9 % (11.7-14.6); White Blood Cell Count 12.08 k/cumm (4.4-10.8)
[2018-07-22] MEDS: Furosemide 20 MG TAB PO (07:28)
[2018-07-22] MEDS: Folic Acid 1 MG TAB PO (07:28)
[2018-07-22] MEDS: Thiamine 100 MG TAB PO (07:28)
[2018-07-22] MEDS: Multivitamin TAB 1 TAB PO (07:29)
[2018-07-22] MEDS: Docusate Sodium 100 MG CAP PO ×2 (07:29→20:51)
[2018-07-22 07:33] LABS: ALT 96 U/L (12-78); AST 261 U/L (15-37); Alkaline Phosphatase 206 U/L (46-116); BUN 6 mg/dL (7-18); Bilirubin, Direct 1.69 mg/dL (0.00-0.20); Bilirubin, Total 2.6 mg/dL (0.2-1.0); Calcium 7.5 mg/dL (8.5-10.1); Chloride 99 mmol/L (98-107); Glucose 82 mg/dL (70-100); Potassium 4.1 mmol/L (3.5-5.1); Sodium 132 mmol/L (136-145)
[2018-07-22] MEDS: predniSONE 20 MG TAB 60 MG PO (07:35)
[2018-07-22 08:18] LABS: Platelet Count 96 x1000/uL (130-400)
[2018-07-22 08:19] LABS: Anisocytosis 2+; Diff Comment RBC Morph Reviewed
[2018-07-22 08:20] LABS: Macrocytosis 2+; Poikilocytes 1+; Polychromasia Present
[2018-07-22 08:35] VITALS: BP 123/79; PULSE 88; RESP 20; TEMP 36.8; O2SAT 94
[2018-07-22] MEDS: Spironolactone 50 MG TAB PO (08:37)
[2018-07-22 11:30] VITALS: BP 153/99; PULSE 104; RESP 20; TEMP 37.6; O2SAT 96
[2018-07-22] MEDS: Furosemide 20 MG/2 ML VIAL IVP (11:48)
--- NOTE | 2018-07-22 12:44 | ROE_ITS ---
Date of service: 07/22/18 Time of Service: 12:40 Operative Note DATE OF PROCEDURE: 07/22/18 PRE-OP DIAGNOSIS: acites secondary to cirrhosis from hep C adn ETOH POST-OP DIAGNOSIS: same PROCEDURE: Paracentesis SURGEON: [place] ANESTHESIA: local ESTIMATED BLOOD LOSS: 2 PATHOLOGY: other TOURNIQUET TIME: 0 COMPLICATIONS: None Patient was transported to: no change Patient's condition: stable Implants: 0 Indications: new onset abdominal ascites and abdominal pain/SOB Findings: small amount of ascites in discrete pockets Procedure Description: Ms. Mariee is a 4-year-old female I was asked to see at the request of Dr. Cadena regarding paracentesis for diagnostic as well as symptom control. Patient was admitted initially on 07/09/2014 with new onset of liver failure. She did have an ultrasound done which shows small pockets of fluid. Consent was obtained explaining risks and benefits of the procedure including but not limited to: Bleeding, infections, damage to internal organs that could result in necessary surgery, or prolonged leakage of fluid. Ultrasound is used to locate fluid. It is not discrete pockets. The largest is in the left upper quadrant patient is patent placed in left decubitus position so that the pocket is in the dependent position. The area is prepped and draped in sterile fashion using ChloraPrep scrub solution timeout is performed identifying the patient and the procedure and the patient agrees. 5 cc and 1% lidocaine plain is used to anesthetize the area. Cook needle was used to cannulate the pocket. 200 cc of straw-colored non-turbid/clear fluid is removed. This is sent for a erobic /anaerobic culture and Gram stain, cell count, pH, albumin/protein, amylase, glucose. Sterile compression dressing is applied patient tolerated procedure well without complication. There is no bleeding or fluid leakage. Patient can resume regular activities.
--- NOTE | 2018-07-22 13:25 | W.PM.PROGNOT ---
Date of Service Date of service: 07/22/18 Time of Service: 13:26 Assessment and Plan (1) Hepatic cirrhosis due to chronic hepatitis C infection: Current visit: Yes Status: Chronic s/p paracentesis. no pain no bleeding or drainage. fluid studies and cult's ordered cont w/diuresis and beta blockers and supportive care can shower in am 07/23. F/u w/ GI for treatment of Hep C Subjective Patient reports: feels better, pain is less, voiding w/o difficulty and shortness of breath Interval history since last seen: feels distended adn full. still SOB, but better than on admission. +diereses Exam Const General: cooperative and comfortable Orientation: alert, awake and oriented x3 Resp Effort & Inspection: normal respiratory effort and audible wheezes Cardio Rate: regular rate Rhythm: regular rhythm GI Inspection: large pannus Palpation: ascites and other Percussion: fluid wave Auscultation: hypoactive bowel sounds Extrem Right lower extremity: edema Left lower extremity: edema Objective Objective Clinical Data: Abnormal lab results 07/22/18 07/22/18 Range/Units 06:30 06:30 WBC 12.08 H (4.4-10.8) k/cumm RBC 3.37 L (4.00-5.20) m/cumm Hct 35.9 L (36.0-46.0) % MCV 106.5 H (80-95) fL MCH 37.4 H (27.0-33.0) pg RDW 19.9 H (11.7-14.6) % Plt Count 96 L (130-400) x1000/uL Absolute Neutrophils 8.88 H (1.2-6.7) k/cumm Absolute Monocytes 0.74 H (0.11-0.7) k/cumm Sodium 132 L (136-145) mmol/L Anion Gap 2.0 L (3-11) mmol/L BUN 6 L (7-18) mg/dL Calcium 7.5 L (8.5-10.1) mg/dL Total Bilirubin 2.6 H (0.2-1.0) mg/dL Conjugated Bilirubin 1.69 H (0.00-0.20) mg/dL AST 261 H (15-37) U/L ALT 96 H (12-78) U/L Alkaline Phosphatase 206 H (46-116) U/L Albumin 2.0 L (3.4-5.0) g/dL Vital Signs Temperature 37.6 C H 07/22/18 11:30 Temperature Source Tympanic 07/22/18 11:30 Pulse 104 H 07/22/18 11:30 Pulse Rhythm Regular 07/22/18 07:23 Respiratory Rate 20 07/22/18 11:30 Respiratory Effort Short of Breath 07/22/18 07:23 Respiratory Depth Normal 07/22/18 07:23 Respiratory Pattern Normal 07/22/18 07:23 Blood Pressure 153/99 H 07/22/18 11:30 Pulse Oximetry 96 07/22/18 11:30 Oxygen Delivery Method Room Air 07/22/18 11:30 Oxygen Flow Rate 0 07/22/18 11:30 Pain Level 7 07/22/18 11:47 Comment 07/22/18 03:05 Intake & Output 07/21/18 07/22/18 07/22/18 23:59 11:59 23:59 Intake Total 1035 / 2145 1340 / 1580 240 / 1580 Output Total 225 / 225 Balance 1035 / 1795 1115 / 1355 240 / 1355 Intake: IV 545 / 605 500 / 500 Oral 490 / 1540 840 / 1080 240 / 1080 Output: Urine 225 / 225 Other: Urine Color Pale Yellow Urine Appearance Clear Urine Odor None Comment voiding independently. Voiding Methods Toilet Laboratory Results WBC 12.08 k/cumm (4.4-10.8) H 07/22/18 06:30 RBC 3.37 m/cumm (4.00-5.20) L 07/22/18 06:30 Hgb 12.6 g/dL (12.0-15.5) 07/22/18 06:30 Hct 35.9 % (36.0-46.0) L 07/22/18 06:30 MCV 106.5 fL (80-95) H 07/22/18 06:30 MCH 37.4 pg (27.0-33.0) H 07/22/18 06:30 MCHC 35.1 g/dL (32.0-36.0) 07/22/18 06:30 RDW 19.9 % (11.7-14.6) H 07/22/18 06:30 Plt Count 96 x1000/uL (130-400) L 07/22/18 06:30 MPV 9.5 fL (8.0-11.0) 07/22/18 06:30 Immature Gran % 0.6 07/22/18 06:30 Neutrophils % 73.5 07/22/18 06:30 Lymphocytes % 19.6 07/22/18 06:30 Monocytes % 6.1 07/22/18 06:30 Eosinophils % 0.1 07/22/18 06:30 Basophils % 0.1 07/22/18 06:30 Absolute Neutrophils 8.88 k/cumm (1.2-6.7) H 07/22/18 06:30 Absolute Lymphocytes 2.37 k/cumm (1.2-3.4) 07/22/18 06:30 Absolute Monocytes 0.74 k/cumm (0.11-0.7) H 07/22/18 06:30 Absolute Eosinophils 0.01 k/cumm (0.0-0.7) 07/22/18 06:30 Absolute Basophils 0.01 k/cumm (0.0-0.2) 07/22/18 06:30 Differential Comment Rbc morph reviewed 07/22/18 06:30 RBC Morphology See below 07/22/18 06:30 Polychromasia Present 07/22/18 06:30 Poikilocytosis 1+ 07/22/18 06:30 Anisocytosis 2+ 07/22/18 06:30 Macrocytosis 2+ 07/22/18 06:30 PT 14.7 sec (9.3-11.0) H 07/20/18 08:24 INR 1.5 (0.9-1.1) H 07/20/18 08:24 APTT 27.2 sec (21.0-31.4) 07/20/18 08:24 Sodium 132 mmol/L (136-145) L 07/22/18 06:30 Potassium 4.1 mmol/L (3.5-5.1) D 07/22/18 06:30 Chloride 99 mmol/L (98-107) 07/22/18 06:30 Carbon Dioxide 31.0 mmol/L (21.0-32.0) 07/22/18 06:30 Anion Gap 2.0 mmol/L (3-11) L 07/22/18 06:30 BUN 6 mg/dL (7-18) L 07/22/18 06:30 Creatinine 0.70 mg/dL (0.55-1.02) 07/22/18 06:30 Estimated GFR/1.73 m2 >= 60.00 (mL/min/1.73m2) 07/22/18 06:30 Glucose 82 mg/dL (70-100) 07/22/18 06:30 Calcium 7.5 mg/dL (8.5-10.1) L 07/22/18 06:30 Magnesium 2.0 mg/dL (1.8-2.4) 07/22/18 06:30 Total Bilirubin 2.6 mg/dL (0.2-1.0) H 07/22/18 06:30 Conjugated Bilirubin 1.69 mg/dL (0.00-0.20) H 07/22/18 06:30 AST 261 U/L (15-37) H 07/22/18 06:30 ALT 96 U/L (12-78) H 07/22/18 06:30 Alkaline Phosphatase 206 U/L (46-116) H 07/22/18 06:30 Ammonia < 10 umol/L (11-32) L 07/20/18 08:55 Troponin I < 0.02 ng/mL (0.00-0.06) 07/20/18 08:24 NT-Pro-B Natriuret Pep 109 pg/mL (-299) 07/20/18 08:24 Total Protein 8.0 g/dL (6.4-8.2) 07/22/18 06:30 Albumin 2.0 g/dL (3.4-5.0) L 07/22/18 06:30 Lipase 138 U/L (73-393) 07/20/18 08:24 TSH 1.82 uIU/mL (0.358-3.74) 07/21/18 07:08 Urine Color [place] (Yellow) 07/20/18 09:50 Urine Clarity Clear 07/20/18 09:50 Urine pH 6.5 (5-8) 07/20/18 09:50 Ur Specific [place] 1.010 (1.005-1.025) 07/20/18 09:50 Urine Protein Negative mg/dL (Negative) 07/20/18 09:50 Urine Ketones 40 mg/dL (Negative) H 07/20/18 09:50 Urine Blood Negative (Negative) 07/20/18 09:50 Urine Nitrite Negative (Negative) 07/20/18 09:50 Urine Bilirubin Moderate (Negative) H 07/20/18 09:50 Urine Urobilinogen 4.0 EU/dL (Up TO 0.2) H 07/20/18 09:50 Ur Leukocyte Esterase Negative (Negative) 07/20/18 09:50 Urine Glucose Negative mg/dL (Negative) 07/20/18 09:50
--- NOTE | 2018-07-22 13:46 | PDOC.CMPRO ---
- If Service Date Differs Date of service: 07/22/18 Time of Service: 13:46 Care Management Progress Note S/O: Lisseth is sitting up in bed watching TV when this quality analyst/technical writer visits this morning. She states that she slept well last night, after she was given some medication for anxiety. Lisseth reports being offered a knitted hat, as well as the knitted stress balls which she states she is enjoying. No change in DC plan at this time. A: 58 y/o female admitted 07/20/18 for Ascites, ? SBP P: Lisseth will return home when medically cleared with no anticipated services. She will F/U with PCP and plan of care as prescribed. Lisseth will transport via [facility].
[2018-07-22 14:09] LABS: Source PERITONEAL
[2018-07-22 14:10] LABS: Clarity CLOUDY
--- NOTE | 2018-07-22 14:13 | CMPROGNOTE_ITS ---
- If Service Date Differs Date of service: 07/22/18 Time of Service: 13:46 Care Management Progress Note S/O: Lisseth is sitting up in bed watching TV when this engineering writer visits this morning. She states that she slept well last night, after she was given some medication for anxiety. Lisseth reports being offered a knitted hat, as well as the knitted stress balls which she states she is enjoying. No change in DC plan at this time. A: 58 y/o female admitted 07/20/18 for Ascites, ? SBP P: Lisseth will return home when medically cleared with no anticipated services. She will F/U with PCP and plan of care as prescribed. Lisseth will transport via [facility].
[2018-07-22 14:29] LABS: Mononuclear Cells 94 % (0-0); Polynuclear Cells 6 % (0-0)
[2018-07-22 16:04] VITALS: BP 117/81; PULSE 98; RESP 18; TEMP 37.2; O2SAT 94
[2018-07-22] MEDS: AZITHROMYCIN 500 MG in Normal Saline 500 ML 166 MG IVPB (18:02)
[2018-07-22 19:53] VITALS: BP 130/92; PULSE 100; RESP 18; TEMP 36.8; O2SAT 96
--- NOTE | 2018-07-22 20:09 | PGE_ITS ---
Date of Service Date of service: 07/22/18 Time of Service: 15:00 Assessment and Plan (1) Ascites with chronic active hepatitis due to toxic liver disease: Current visit: Yes Status: Acute Continue aldactone. Start nadolol. s/p Paracenthesis today - unfortunately, the cell count could not be performed. My understanding is that there will be another attempt to drain tomorrow. There is no evidence for SBP at this time. Hepatitis studies are pending. Hemoccult pending. (2) Acute exacerbation of chronic obstructive pulmonary disease (COPD): Current visit: Yes Status: Acute Mild. Improved. Continue diuresis, incentive spirometry. Continue azithromycin, rocephin, and nebs. Taper PO prednisone. (3) Cirrhosis, alcoholic: Current visit: Yes Status: Chronic As above (4) Hepatic cirrhosis due to chronic hepatitis C infection: Current visit: Yes Status: Chronic As above. (5) Varices of other sites: Current visit: Yes Status: Acute Will need outpatient EGD. Continue PPI and start nadolol. (6) Breast pain in female: Current visit: Yes Status: Acute Likely due to edema. Will need to have outpatient mammography. (7) Alcohol abuse: Current visit: Yes Status: Chronic Continue CIWA, prn ativan, PO vitamins as patient tolerates PO. (8) Alcoholic ketoacidosis: Current visit: Yes Status: Acute Should resolve without intervention (9) Hypomagnesemia: Current visit: Yes Status: Acute repleted - monitor (10) Hypokalemia: Current visit: Yes Status: Acute repleted - monitor (11) Tobacco abuse: Current visit: Yes Status: Acute cessation advised - patient is already trying to quit. Provide nicotrol. (12) Discharge planning issues: Current visit: Yes Status: Acute Full code (13) DVT prophylaxis: Current visit: Yes Status: Acute SCD's + TEDs as there is evidence of varices on imaging. Subjective Interval history since last seen: Ms Fong is s/p paracenthesis today. 200 cc's of straw-colored non-turbid/clear fluid were removed. She states that since the paracenthesis, she feels a lot better. She denies dizziness, states her cough and shortness of breath are much better, continues to report some (but less) pain in her B breasts, L>R, denies nausea, vomiting. She feels better and is very happy with her care. Exam Narrative Exam Narrative: General: Jaundiced middle aged female, A&Ox3, looks very cheerful today HEENT: EOMI, MMM Cardiovascular: RRR, no m/r/g Lungs: Diminished at B bases, but otherwise clear to auscultation B Gastrointestinal: abdomen less distended with ascites, less tender today. There is very minimal RUQ tenderness. Extremities: +1 edema BLE's - improved, no clubbing or cyanosis, 2+ pedal pulses B Objective Objective Clinical Data: Abnormal lab results 07/22/18 07/22/18 07/22/18 Range/Units 06:30 06:30 11:16 WBC 12.08 H (4.4-10.8) k/cumm RBC 3.37 L (4.00-5.20) m/cumm Hct 35.9 L (36.0-46.0) % MCV 106.5 H (80-95) fL MCH 37.4 H (27.0-33.0) pg RDW 19.9 H (11.7-14.6) % Plt Count 96 L (130-400) x1000/uL Absolute Neutrophils 8.88 H (1.2-6.7) k/cumm Absolute Monocytes 0.74 H (0.11-0.7) k/cumm Sodium 132 L (136-145) mmol/L Anion Gap 2.0 L (3-11) mmol/L BUN 6 L (7-18) mg/dL Calcium 7.5 L (8.5-10.1) mg/dL Total Bilirubin 2.6 H (0.2-1.0) mg/dL Conjugated Bilirubin 1.69 H (0.00-0.20) mg/dL AST 261 H (15-37) U/L ALT 96 H (12-78) U/L Alkaline Phosphatase 206 H (46-116) U/L Albumin 2.0 L (3.4-5.0) g/dL Fluid Mononuclear Cell 94 H (0-0) % Fl Polymorphonucl Cell 6 H (0-0) % Vital Signs Temperature 36.8 C 07/22/18 19:53 Temperature Source Tympanic 07/22/18 19:53 Pulse 100 H 07/22/18 19:53 Pulse Rhythm Regular 07/22/18 07:23 Respiratory Rate 18 07/22/18 19:53 Respiratory Effort Short of Breath 07/22/18 07:23 Respiratory Depth Normal 07/22/18 07:23 Respiratory Pattern Normal 07/22/18 07:23 Blood Pressure 130/92 H 07/22/18 19:53 Pulse Oximetry 96 07/22/18 19:53 Oxygen Delivery Method Room Air 07/22/18 19:53 Oxygen Flow Rate 0 07/22/18 19:53 Pain Level 7 07/22/18 16:16 Comment 07/22/18 03:05 Intake & Output 07/21/18 07/22/18 07/22/18 23:59 11:59 23:59 Intake Total 1035 / 2145 1340 / 2290 950 / 2290 Output Total 225 / 2275 205 / 2275 Balance 1035 / 1795 1115 / 15 -1100 / 15 Intake: IV 545 / 605 500 / 610 110 / 610 Oral 490 / 1540 840 / 1680 840 / 1680 Output: Urine 225 / 2275 2049 / 2275 Other: Urine Color Pale Yellow Yellow Urine Appearance Clear Clear Urine Odor None Normal Comment voiding independently. Voiding ad casandra in toilet; multiple voids. Pt denies sx. Voiding Methods Toilet Toilet Laboratory Results WBC 12.08 k/cumm (4.4-10.8) H 07/22/18 06:30 RBC 3.37 m/cumm (4.00-5.20) L 07/22/18 06:30 Hgb 12.6 g/dL (12.0-15.5) 07/22/18 06:30 Hct 35.9 % (36.0-46.0) L 07/22/18 06:30 MCV 106.5 fL (80-95) H 07/22/18 06:30 MCH 37.4 pg (27.0-33.0) H 07/22/18 06:30 MCHC 35.1 g/dL (32.0-36.0) 07/22/18 06:30 RDW 19.9 % (11.7-14.6) H 07/22/18 06:30 Plt Count 96 x1000/uL (130-400) L 07/22/18 06:30 MPV 9.5 fL (8.0-11.0) 07/22/18 06:30 Immature Gran % 0.6 07/22/18 06:30 Neutrophils % 73.5 07/22/18 06:30 Lymphocytes % 19.6 07/22/18 06:30 Monocytes % 6.1 07/22/18 06:30 Eosinophils % 0.1 07/22/18 06:30 Basophils % 0.1 07/22/18 06:30 Absolute Neutrophils 8.88 k/cumm (1.2-6.7) H 07/22/18 06:30 Absolute Lymphocytes 2.37 k/cumm (1.2-3.4) 07/22/18 06:30 Absolute Monocytes 0.74 k/cumm (0.11-0.7) H 07/22/18 06:30 Absolute Eosinophils 0.01 k/cumm (0.0-0.7) 07/22/18 06:30 Absolute Basophils 0.01 k/cumm (0.0-0.2) 07/22/18 06:30 Differential Comment Rbc morph reviewed 07/22/18 06:30 RBC Morphology See below 07/22/18 06:30 Polychromasia Present 07/22/18 06:30 Poikilocytosis 1+ 07/22/18 06:30 Anisocytosis 2+ 07/22/18 06:30 Macrocytosis 2+ 07/22/18 06:30 PT 14.7 sec (9.3-11.0) H 07/20/18 08:24 INR 1.5 (0.9-1.1) H 07/20/18 08:24 APTT 27.2 sec (21.0-31.4) 07/20/18 08:24 Sodium 132 mmol/L (136-145) L 07/22/18 06:30 Potassium 4.1 mmol/L (3.5-5.1) D 07/22/18 06:30 Chloride 99 mmol/L (98-107) 07/22/18 06:30 Carbon Dioxide 31.0 mmol/L (21.0-32.0) 07/22/18 06:30 Anion Gap 2.0 mmol/L (3-11) L 07/22/18 06:30 BUN 6 mg/dL (7-18) L 07/22/18 06:30 Creatinine 0.70 mg/dL (0.55-1.02) 07/22/18 06:30 Estimated GFR/1.73 m2 >= 60.00 (mL/min/1.73m2) 07/22/18 06:30 Glucose 82 mg/dL (70-100) 07/22/18 06:30 Calcium 7.5 mg/dL (8.5-10.1) L 07/22/18 06:30 Magnesium 2.0 mg/dL (1.8-2.4) 07/22/18 06:30 Total Bilirubin 2.6 mg/dL (0.2-1.0) H 07/22/18 06:30 Conjugated Bilirubin 1.69 mg/dL (0.00-0.20) H 07/22/18 06:30 AST 261 U/L (15-37) H 07/22/18 06:30 ALT 96 U/L (12-78) H 07/22/18 06:30 Alkaline Phosphatase 206 U/L (46-116) H 07/22/18 06:30 Ammonia < 10 umol/L (11-32) L 07/20/18 08:55 Troponin I < 0.02 ng/mL (0.00-0.06) 07/20/18 08:24 NT-Pro-B Natriuret Pep 109 pg/mL (-299) 07/20/18 08:24 Total Protein 8.0 g/dL (6.4-8.2) 07/22/18 06:30 Albumin 2.0 g/dL (3.4-5.0) L 07/22/18 06:30 Lipase 138 U/L (73-393) 07/20/18 08:24 TSH 1.82 uIU/mL (0.358-3.74) 07/21/18 07:08 Urine Color [place] (Yellow) 07/20/18 09:50 Urine Clarity Clear 07/20/18 09:50 Urine pH 6.5 (5-8) 07/20/18 09:50 Ur Specific [place] 1.010 (1.005-1.025) 07/20/18 09:50 Urine Protein Negative mg/dL (Negative) 07/20/18 09:50 Urine Ketones 40 mg/dL (Negative) H 07/20/18 09:50 Urine Blood Negative (Negative) 07/20/18 09:50 Urine Nitrite Negative (Negative) 07/20/18 09:50 Urine Bilirubin Moderate (Negative) H 07/20/18 09:50 Urine Urobilinogen 4.0 EU/dL (Up TO 0.2) H 07/20/18 09:50 Ur Leukocyte Esterase Negative (Negative) 07/20/18 09:50 Urine Glucose Negative mg/dL (Negative) 07/20/18 09:50 Fluid Source Peritoneal 07/22/18 11:16 Fluid Color Other 07/22/18 11:16 Fluid Appearance Cloudy 07/22/18 11:16 Fluid WBC /MM3 (0-0) 07/22/18 11:16 Fluid Hematocrit Cancelled 07/22/18 11:16 Fluid Mononuclear Cell 94 % (0-0) H 07/22/18 11:16 Fl Polymorphonucl Cell 6 % (0-0) H 07/22/18 11:16
[2018-07-22] MEDS: Milk of Magnesia 30 ML CUP PO (20:53)
[2018-07-22] MEDS: hydrOXYzine HCL 25 MG TAB PO (20:53)
[2018-07-22 21:31] LABS: Glucose, Fluid 103 mg/dl
[2018-07-23 00:15] VITALS: BP 163/82; PULSE 105; RESP 17; TEMP 37.1; O2SAT 95
[2018-07-23 03:38] VITALS: BP 159/97; PULSE 102; RESP 18; TEMP 36; O2SAT 96
[2018-07-23] MEDS: oxyCODONE 5 MG TAB PO ×2 (03:55→10:23)
[2018-07-23] MEDS: Normal Saline Flush 10 ML SYR IVP ×5 (06:39→22:25)
[2018-07-23] MEDS: hydrOXYzine HCL 25 MG TAB PO (06:41)
[2018-07-23] MEDS: Pantoprazole 40 MG TABCR PO (06:42)
[2018-07-23 07:17] LABS: Abs Immature Grans 0.07 k/cumm (0.0-0.09); Absolute Basophil Count 0.01 k/cumm (0.0-0.2); Absolute Eosinophil Count 0.04 k/cumm (0.0-0.7); Absolute Lymphocyte Count 3.15 k/cumm (1.2-3.4); Absolute Monocyte Count 0.62 k/cumm (0.11-0.7); Basophils % 0.1; Eosinophils % 0.4; HCT 38.4 % (36.0-46.0); HGB 12.8 g/dL (12.0-15.5); Immature Grans % 0.7; Lymphocytes % 31.9; Mean Corp. HGB Concentration 33.3 g/dL (32.0-36.0); Mean Corpuscular Hemoglobin 36.5 pg (27.0-33.0); Mean Corpuscular Volume 109.4 fL (80-95); Mean Platelet Volume 9.4 fL (8.0-11.0); Monocytes % 6.3; Neutrophils % 60.6; Platelet Count 105 x1000/uL (130-400); RBC 3.51 m/cumm (4.00-5.20); RBC Distribution Width 20.3 % (11.7-14.6); White Blood Cell Count 9.89 k/cumm (4.4-10.8)
[2018-07-23 07:32] LABS: ALT 90 U/L (12-78); AST 217 U/L (15-37); Alkaline Phosphatase 227 U/L (46-116); Anion Gap 4.9 mmol/L (3-11); BUN 10 mg/dL (7-18); Bilirubin, Total 2.9 mg/dL (0.2-1.0); CO2 31.1 mmol/L (21.0-32.0); CREATININE 0.61 mg/dL (0.55-1.02); Calcium 7.5 mg/dL (8.5-10.1); Chloride 100 mmol/L (98-107); Magnesium 1.8 mg/dL (1.8-2.4); Potassium 3.6 mmol/L (3.5-5.1); Sodium 136 mmol/L (136-145); Total Protein 7.6 g/dL (6.4-8.2)
[2018-07-23 07:37] LABS: Glucose 67 mg/dL (70-100)
[2018-07-23 08:30] VITALS: BP 113/73; PULSE 104; RESP 20; TEMP 36.7; O2SAT 96
[2018-07-23] MEDS: Folic Acid 1 MG TAB PO (09:27)
[2018-07-23] MEDS: Docusate Sodium 100 MG CAP PO ×2 (09:27→19:33)
[2018-07-23] MEDS: Spironolactone 50 MG TAB PO (09:28)
[2018-07-23] MEDS: predniSONE 20 MG TAB 40 MG PO (09:28)
[2018-07-23] MEDS: Thiamine 100 MG TAB PO (09:28)
[2018-07-23] MEDS: Nadolol 40 MG TAB 20 MG PO (09:28)
[2018-07-23] MEDS: Multivitamin TAB 1 TAB PO (09:28)
[2018-07-23 10:05] VITALS: O2SAT 93
[2018-07-23] MEDS: Potassium Chloride 20 MEQ TABCR 40 MEQ PO (10:23)
[2018-07-23] MEDS: Gabapentin 400 MG CAP 800 MG PO ×2 (10:23→19:33)
[2018-07-23] MEDS: Magnesium Oxide 400 MG TAB PO (12:21)
[2018-07-23 14:05] VITALS: BP 153/80; PULSE 80; RESP 18; TEMP 36.6; O2SAT 95
[2018-07-23 15:51] VITALS: BP 122/82; PULSE 83; RESP 17; TEMP 36.8; O2SAT 95
--- NOTE | 2018-07-23 16:14 | CMPROGNOTE_ITS ---
- If Service Date Differs Date of service: 07/23/18 Time of Service: 15:42 Care Management Progress Note S/O: Lisseth had a paracentesis on 07/22/18. She is receiving IV pain management, and antibiotics. She was started on Serax and Gabapentin to treat ETOH withdrawal per provider. She remains acute with no change in status today. Surgical services continue to consult r/t to ascities and future need for paracentesis. A: 58 y/o female admitted 07/20/18 for Ascites, due to toxic liver disease. P: Lisseth will return home when medically cleared with no anticipated services. She will F/U with PCP and plan of care as prescribed. Lisseth will transport via [facility].
[2018-07-23 17:03] LABS: Amylase, BF 12 U/L; Fluid Type PERITONEAL; Protein,Total, BF 0.8 g/dL
--- NOTE | 2018-07-23 17:57 | W.PM.PROGNOT ---
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 Start oral lasix as well and monitor blood pressure, renal function, and electrolytes carefully. s/p Paracenthesis - unfortunately, cell count could not be performed, and current cultures negative, although on antibiotic therapy. Patient presented without a fever or altered mental status, but with abdominal tenderness. Currently on day #3 of a planned 5 day course of antibiotic therapy with Ceftriaxone. (2) Cirrhosis, alcoholic: Current visit: Yes Status: Chronic Cirrhosis in setting of both ETOH and HCV. Treatment as above. Will need GI follow-up as outpatient. (3) Varices of other sites: Current visit: Yes Status: Acute Initiated on Nadolol. (4) COPD (chronic obstructive pulmonary disease): Current visit: Yes Status: Chronic Continue current therapy with steroids, antibiotics, and nebs. (5) Alcohol abuse: Current visit: Yes Status: Chronic Maintain on CIWA protocol - Gabapentin and Oxazepam initiated as well. Continue FA, Thiamine. Patient counseled on cessation today. (6) Tobacco abuse: Current visit: Yes Status: Acute Noted. Continue NRT with Nicotrol. (7) DVT prophylaxis: Current visit: Yes Status: Acute SCD's, TEDS. Subjective Interval history since last seen: 58 year old woman with a prior history of HCV and chronic alcohol and tobacco abuse, admitted from [facility] Emergency Department with a new diagnosis of Cirrhosis with ascites and abdominal pain. Ms. Fong has a history of Hepatitis C, with ongoing active ETOH abuse. She also has daily tobacco use and underlying COPD. She presented to the ED with complaints of abdominal swelling that developed 2-3 months prior, but acutely worsened with onset of pain for the past 1-2 weeks. She also reports a cough productive of green sputum and shortness of breath x 1 - 2 weeks. Imaging showed evidence of Cirrhosis, as well as presence of ascites and esophageal varices. She underwent a paracentesis, nondiagnostic due to inappropriate tubing - due for a repeat tap. Also on empiric antibiotic therapy for coverage of SBP. This morning the patient feels overall improved, but with continued abdominal pain. No overnight events reported. Remains afebrile. Exam Narrative Exam Narrative: General: Patient appears comfortable, AAOX3, NAD Neck: Supple CV: Regular, nontachycardic, S1S2, No rubs, murmurs, or gallops. Pulmonary: Clear to auscultation bilaterally, no crackles, wheezing, or rhonchi Abdomen: + Bowel Sounds, soft, tender diffusely without rebound, distended Vascular: +1 b/l lower extremity edema Psych: Normal mood and affect. Objective Objective Clinical Data: Abnormal lab results 07/23/18 07/23/18 Range/Units 06:38 06:38 RBC 3.51 L (4.00-5.20) m/cumm MCV 109.4 H (80-95) fL MCH 36.5 H (27.0-33.0) pg RDW 20.3 H (11.7-14.6) % Plt Count 105 L (130-400) x1000/uL Glucose 67 L (70-100) mg/dL Calcium 7.5 L (8.5-10.1) mg/dL Total Bilirubin 2.9 H (0.2-1.0) mg/dL Conjugated Bilirubin 1.80 H (0.00-0.20) mg/dL AST 217 H (15-37) U/L ALT 90 H (12-78) U/L Alkaline Phosphatase 227 H (46-116) U/L Albumin 2.0 L (3.4-5.0) g/dL Vital Signs Temperature 36.8 C 07/23/18 15:51 Temperature Source Tympanic 07/23/18 15:51 Pulse 83 07/23/18 15:51 Pulse Rhythm Regular 07/23/18 17:16 Respiratory Rate 17 07/23/18 15:51 Respiratory Effort Non-Labored 07/23/18 17:16 Respiratory Depth Normal 07/23/18 17:16 Respiratory Pattern Normal 07/23/18 17:16 Blood Pressure 122/82 07/23/18 15:51 Pulse Oximetry 95 07/23/18 15:51 Oxygen Delivery Method Room Air 07/23/18 15:51 Oxygen Flow Rate 0 07/23/18 15:51 Pain Level 9 07/23/18 13:28 Comment 07/22/18 03:05 Intake & Output 07/22/18 07/23/18 07/23/18 23:59 11:59 23:59 Intake Total 1590 / 2930 590 / 1050 460 / 1050 Output Total 2049 1100 / 1100 Balance -460 / 655 -510 / -50 460 / -50 Weight 73.8 kg Intake: IV 630 / 1130 Oral 960 / 1800 570 / 1030 460 / 1030 Output: Urine 2049 1100 / 1100 Other: Urine Color Yellow Yellow Urine Appearance Clear Clear Clear Urine Odor Normal Comment Voiding ad casandra in toilet; multiple voids. Pt denies sx. pt voiding in toilet; urine not assessed Voiding Methods Toilet Toilet Toilet Laboratory Results WBC 9.89 k/cumm (4.4-10.8) 07/23/18 06:38 RBC 3.51 m/cumm (4.00-5.20) L 07/23/18 06:38 Hgb 12.8 g/dL (12.0-15.5) 07/23/18 06:38 Hct 38.4 % (36.0-46.0) 07/23/18 06:38 MCV 109.4 fL (80-95) H 07/23/18 06:38 MCH 36.5 pg (27.0-33.0) H 07/23/18 06:38 MCHC 33.3 g/dL (32.0-36.0) 07/23/18 06:38 RDW 20.3 % (11.7-14.6) H 07/23/18 06:38 Plt Count 105 x1000/uL (130-400) L 07/23/18 06:38 MPV 9.4 fL (8.0-11.0) 07/23/18 06:38 Immature Gran % 0.7 07/23/18 06:38 Neutrophils % 60.6 07/23/18 06:38 Lymphocytes % 31.9 07/23/18 06:38 Monocytes % 6.3 07/23/18 06:38 Eosinophils % 0.4 07/23/18 06:38 Basophils % 0.1 07/23/18 06:38 Absolute Neutrophils 6.00 k/cumm (1.2-6.7) 07/23/18 06:38 Absolute Lymphocytes 3.15 k/cumm (1.2-3.4) 07/23/18 06:38 Absolute Monocytes 0.62 k/cumm (0.11-0.7) 07/23/18 06:38 Absolute Eosinophils 0.04 k/cumm (0.0-0.7) 07/23/18 06:38 Absolute Basophils 0.01 k/cumm (0.0-0.2) 07/23/18 06:38 Differential Comment Rbc morph reviewed 07/22/18 06:30 RBC Morphology See below 07/22/18 06:30 Polychromasia Present 07/22/18 06:30 Poikilocytosis 1+ 07/22/18 06:30 Anisocytosis 2+ 07/22/18 06:30 Macrocytosis 2+ 07/22/18 06:30 PT 14.7 sec (9.3-11.0) H 07/20/18 08:24 INR 1.5 (0.9-1.1) H 07/20/18 08:24 APTT 27.2 sec (21.0-31.4) 07/20/18 08:24 Sodium 136 mmol/L (136-145) 07/23/18 06:38 Potassium 3.6 mmol/L (3.5-5.1) 07/23/18 06:38 Chloride 100 mmol/L (98-107) 07/23/18 06:38 Carbon Dioxide 31.1 mmol/L (21.0-32.0) 07/23/18 06:38 Anion Gap 4.9 mmol/L (3-11) 07/23/18 06:38 BUN 10 mg/dL (7-18) 07/23/18 06:38 Creatinine 0.61 mg/dL (0.55-1.02) 07/23/18 06:38 Estimated GFR/1.73 m2 >= 60.00 (mL/min/1.73m2) 07/23/18 06:38 Glucose 67 mg/dL (70-100) L 07/23/18 06:38 Calcium 7.5 mg/dL (8.5-10.1) L 07/23/18 06:38 Magnesium 1.8 mg/dL (1.8-2.4) 07/23/18 06:38 Total Bilirubin 2.9 mg/dL (0.2-1.0) H 07/23/18 06:38 Conjugated Bilirubin 1.80 mg/dL (0.00-0.20) H 07/23/18 06:38 AST 217 U/L (15-37) H 07/23/18 06:38 ALT 90 U/L (12-78) H 07/23/18 06:38 Alkaline Phosphatase 227 U/L (46-116) H 07/23/18 06:38 Ammonia < 10 umol/L (11-32) L 07/20/18 08:55 Troponin I < 0.02 ng/mL (0.00-0.06) 07/20/18 08:24 NT-Pro-B Natriuret Pep 109 pg/mL (-299) 07/20/18 08:24 Total Protein 7.6 g/dL (6.4-8.2) 07/23/18 06:38 Albumin 2.0 g/dL (3.4-5.0) L 07/23/18 06:38 Lipase 138 U/L (73-393) 07/20/18 08:24 TSH 1.82 uIU/mL (0.358-3.74) 07/21/18 07:08 Urine Color [place] (Yellow) 07/20/18 09:50 Urine Clarity Clear 07/20/18 09:50 Urine pH 6.5 (5-8) 07/20/18 09:50 Ur Specific [place] 1.010 (1.005-1.025) 07/20/18 09:50 Urine Protein Negative mg/dL (Negative) 07/20/18 09:50 Urine Ketones 40 mg/dL (Negative) H 07/20/18 09:50 Urine Blood Negative (Negative) 07/20/18 09:50 Urine Nitrite Negative (Negative) 07/20/18 09:50 Urine Bilirubin Moderate (Negative) H 07/20/18 09:50 Urine Urobilinogen 4.0 EU/dL (Up TO 0.2) H 07/20/18 09:50 Ur Leukocyte Esterase Negative (Negative) 07/20/18 09:50 Urine Glucose Negative mg/dL (Negative) 07/20/18 09:50 Fluid Source Peritoneal 07/22/18 11:16 Fluid Color Other 07/22/18 11:16 Fluid Appearance Cloudy 07/22/18 11:16 Fluid WBC /MM3 (0-0) 07/22/18 11:16 Fluid Hematocrit Cancelled 07/22/18 11:16 Fluid Mononuclear Cell 94 % (0-0) H 07/22/18 11:16 Fl Polymorphonucl Cell 6 % (0-0) H 07/22/18 11:16
[2018-07-23] MEDS: AZITHROMYCIN 500 MG in Normal Saline 250 ML 250 MG IVPB (18:13)
[2018-07-24] VITALS (8 sets, daily range): BP systolic 100–144; BP diastolic 62–92; PULSE 70–84; RESP 16–19; TEMP 36.1–36.9; O2SAT 92–98
[2018-07-24] MEDS: oxyCODONE 5 MG TAB PO ×4 (01:48→20:56)
[2018-07-24] MEDS: Normal Saline Flush 10 ML SYR IVP ×8 (02:40→23:41)
[2018-07-24] MEDS: hydrOXYzine HCL 25 MG TAB PO (06:30)
[2018-07-24 07:27] LABS: Abs Immature Grans 0.07 k/cumm (0.0-0.09); Absolute Basophil Count 0.01 k/cumm (0.0-0.2); Absolute Eosinophil Count 0.07 k/cumm (0.0-0.7); Absolute Lymphocyte Count 2.78 k/cumm (1.2-3.4); Absolute Monocyte Count 0.48 k/cumm (0.11-0.7); Absolute Neutrophil Count 4.27 k/cumm (1.2-6.7); Basophils % 0.1; Eosinophils % 0.9; HCT 38.8 % (36.0-46.0); HGB 13.1 g/dL (12.0-15.5); Immature Grans % 0.9; Lymphocytes % 36.2; Mean Corp. HGB Concentration 33.8 g/dL (32.0-36.0); Mean Corpuscular Hemoglobin 36.7 pg (27.0-33.0); Mean Corpuscular Volume 108.7 fL (80-95); Mean Platelet Volume 9.8 fL (8.0-11.0); Monocytes % 6.3; Neutrophils % 55.6; RBC 3.57 m/cumm (4.00-5.20); RBC Distribution Width 20.4 % (11.7-14.6); White Blood Cell Count 7.68 k/cumm (4.4-10.8)
[2018-07-24 07:52] LABS: ALT 84 U/L (12-78); AST 185 U/L (15-37); Albumin 1.9 g/dL (3.4-5.0); Alkaline Phosphatase 264 U/L (46-116); Anion Gap 3.8 mmol/L (3-11); BUN 13 mg/dL (7-18); Bilirubin, Total 2.7 mg/dL (0.2-1.0); CO2 31.2 mmol/L (21.0-32.0); CREATININE 0.54 mg/dL (0.55-1.02); Calcium 7.7 mg/dL (8.5-10.1); Chloride 101 mmol/L (98-107); Glucose 62 mg/dL (70-100); Magnesium 2.1 mg/dL (1.8-2.4); Potassium 4.1 mmol/L (3.5-5.1); Sodium 136 mmol/L (136-145); Total Protein 7.6 g/dL (6.4-8.2)
[2018-07-24] MEDS: Nadolol 40 MG TAB 20 MG PO (08:04)
[2018-07-24] MEDS: Multivitamin TAB 1 TAB PO (08:04)
[2018-07-24] MEDS: Furosemide 20 MG TAB PO (08:04)
[2018-07-24] MEDS: Spironolactone 50 MG TAB PO (08:04)
[2018-07-24] MEDS: Pantoprazole 40 MG TABCR PO (08:05)
[2018-07-24] MEDS: Thiamine 100 MG TAB PO (08:05)
[2018-07-24] MEDS: Folic Acid 1 MG TAB PO (08:05)
[2018-07-24] MEDS: predniSONE 20 MG TAB 40 MG PO (08:05)
[2018-07-24] MEDS: Gabapentin 400 MG CAP 800 MG PO ×2 (08:05→19:48)
[2018-07-24] MEDS: Docusate Sodium 100 MG CAP PO (08:05)
[2018-07-24 08:06] LABS: Anisocytosis 2+; Macrocytosis 2+; Platelet Count 98 x1000/uL (130-400); Polychromasia Present
[2018-07-24 08:07] LABS: Diff Comment RBC Morph Reviewed
--- NOTE | 2018-07-24 09:30 | CMPROGNOTE_ITS ---
- If Service Date Differs Date of service: 07/24/18 Time of Service: 09:29 Care Management Progress Note S/O: Lisseht had a paracentesis on 07/22/18. She is receiving IV pain management, and antibiotics. Plan for repeat paracentesis Wednesday or Wednesday with surgical team. She was started on Serax and Gabapentin to treat ETOH withdrawal per provider. She remains acute with no change in status today. Surgical services continue to consult r/t to ascities and future need for paracentesis. A: 58 y/o female admitted 07/20/18 for Ascites, due to toxic liver disease. P: Lisseth will return home when medically cleared with no anticipated services. She will F/U with PCP and plan of care as prescribed. Lisseth will transport via [facility].
--- NOTE | 2018-07-24 16:12 | W.PM.PROGNOT ---
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 Started oral lasix this morning as well, with continued monitoring of blood pressure, renal function, and electrolytes. s/p Paracenthesis - unfortunately, cell count could not be performed, and current cultures negative, although on antibiotic therapy. Patient presented without a fever or altered mental status, but with abdominal tenderness. Currently on day #4 of a planned 5 day course of antibiotic therapy with Ceftriaxone. (2) Cirrhosis, alcoholic: Current visit: Yes Status: Chronic Cirrhosis in setting of both ETOH and HCV. Treatment as above. Will need GI follow-up as outpatient. Plan on potential repeat Thoracentesis for comfort tomorrow. (3) Varices of other sites: Current visit: Yes Status: Acute Initiated on Nadolol. (4) COPD (chronic obstructive pulmonary disease): Current visit: Yes Status: Chronic Continue current therapy with steroids, weaned today, antibiotics, and nebs. Current exam reassuring. (5) Alcohol abuse: Current visit: Yes Status: Chronic Maintain on CIWA protocol - Gabapentin and Oxazepam initiated as well. Continue FA, Thiamine. Patient counseled on cessation previously. (6) Tobacco abuse: Current visit: Yes Status: Acute Noted. Continue NRT with Nicotrol. (7) DVT prophylaxis: Current visit: Yes Status: Acute SCD's, TEDS. Subjective Interval history since last seen: 58 year old woman with a prior history of HCV and chronic alcohol and tobacco abuse, admitted from [facility] Emergency Department with a new diagnosis of Cirrhosis with ascites and abdominal pain. Ms. Fong has a history of Hepatitis C, with ongoing active ETOH abuse. She also has daily tobacco use and underlying COPD. She presented to the ED with complaints of abdominal swelling that developed 2-3 months prior, but acutely worsened with onset of pain for the past 1-2 weeks. She also reports a cough productive of green sputum and shortness of breath x 1 - 2 weeks. Imaging showed evidence of Cirrhosis, as well as presence of ascites and esophageal varices. She underwent a paracentesis, nondiagnostic due to inappropriate tubing - due potentially for a repeat tap. Also on empiric antibiotic therapy for coverage of SBP. This morning the patient feels overall improved, but with continued abdominal pain that is described as ongoing for several weeks, mostly left sided and extending around the flank area. No overnight events reported. Remains afebrile. Exam Narrative Exam Narrative: General: Patient appears comfortable, AAOX3, NAD Neck: Supple CV: Regular, nontachycardic, S1S2, No rubs, murmurs, or gallops. Pulmonary: Clear to auscultation bilaterally, no crackles, wheezing, or rhonchi Abdomen: + Bowel Sounds, soft, tender diffusely without rebound, distended. Mild echymosis left abdomen at site of reported Paracentesis Vascular: +1 b/l lower extremity edema Psych: Normal mood and affect. Objective Objective Clinical Data: Abnormal lab results 07/24/18 07/24/18 Range/Units 06:48 06:48 RBC 3.57 L (4.00-5.20) m/cumm MCV 108.7 H (80-95) fL MCH 36.7 H (27.0-33.0) pg RDW 20.4 H (11.7-14.6) % Plt Count 98 L (130-400) x1000/uL Creatinine 0.54 L (0.55-1.02) mg/dL Glucose 62 L (70-100) mg/dL Calcium 7.7 L (8.5-10.1) mg/dL Total Bilirubin 2.7 H (0.2-1.0) mg/dL AST 185 H (15-37) U/L ALT 84 H (12-78) U/L Alkaline Phosphatase 264 H (46-116) U/L Albumin 1.9 L (3.4-5.0) g/dL Vital Signs Temperature 36.6 C 07/24/18 11:55 Temperature Source Tympanic 07/24/18 11:55 Pulse 78 07/24/18 11:55 Pulse Rhythm Regular 07/24/18 08:00 Respiratory Rate 18 07/24/18 11:55 Respiratory Effort Non-Labored 07/24/18 08:00 Respiratory Depth Normal 07/24/18 08:00 Respiratory Pattern Normal 07/24/18 08:00 Blood Pressure 121/80 07/24/18 11:55 Pulse Oximetry 94 L 07/24/18 11:55 Oxygen Delivery Method Room Air 07/24/18 11:55 Oxygen Flow Rate 0 07/24/18 11:55 Pain Level 7 07/24/18 13:04 Comment 07/22/18 03:05 Intake & Output 07/23/18 07/24/18 07/24/18 23:59 11:59 23:59 Intake Total 1170 / 1760 540 / 780 240 / 780 Output Total 1400 / 1400 Balance 1170 / 660 -860 / -620 240 / -620 Weight 73.8 kg Intake: IV 350 / 370 Oral 820 / 1390 540 / 780 240 / 780 Output: Urine 1400 / 1400 Other: Urine Color Yellow Urine Appearance Clear Clear Urine Odor None Comment pt voiding in toilet; urine not assessed Stool Size Large Moderate Stool Characteristics Soft Soft Formed Formed Brown Voiding Methods Toilet Toilet Laboratory Results WBC 7.68 k/cumm (4.4-10.8) 07/24/18 06:48 RBC 3.57 m/cumm (4.00-5.20) L 07/24/18 06:48 Hgb 13.1 g/dL (12.0-15.5) 07/24/18 06:48 Hct 38.8 % (36.0-46.0) 07/24/18 06:48 MCV 108.7 fL (80-95) H 07/24/18 06:48 MCH 36.7 pg (27.0-33.0) H 07/24/18 06:48 MCHC 33.8 g/dL (32.0-36.0) 07/24/18 06:48 RDW 20.4 % (11.7-14.6) H 07/24/18 06:48 Plt Count 98 x1000/uL (130-400) L 07/24/18 06:48 MPV 9.8 fL (8.0-11.0) 07/24/18 06:48 Immature Gran % 0.9 07/24/18 06:48 Neutrophils % 55.6 07/24/18 06:48 Lymphocytes % 36.2 07/24/18 06:48 Monocytes % 6.3 07/24/18 06:48 Eosinophils % 0.9 07/24/18 06:48 Basophils % 0.1 07/24/18 06:48 Absolute Neutrophils 4.27 k/cumm (1.2-6.7) 07/24/18 06:48 Absolute Lymphocytes 2.78 k/cumm (1.2-3.4) 07/24/18 06:48 Absolute Monocytes 0.48 k/cumm (0.11-0.7) 07/24/18 06:48 Absolute Eosinophils 0.07 k/cumm (0.0-0.7) 07/24/18 06:48 Absolute Basophils 0.01 k/cumm (0.0-0.2) 07/24/18 06:48 Differential Comment Rbc morph reviewed 07/24/18 06:48 RBC Morphology See below 07/24/18 06:48 Polychromasia Present 07/24/18 06:48 Poikilocytosis 1+ 07/22/18 06:30 Anisocytosis 2+ 07/24/18 06:48 Macrocytosis 2+ 07/24/18 06:48 PT 14.7 sec (9.3-11.0) H 07/20/18 08:24 INR 1.5 (0.9-1.1) H 07/20/18 08:24 APTT 27.2 sec (21.0-31.4) 07/20/18 08:24 Sodium 136 mmol/L (136-145) 07/24/18 06:48 Potassium 4.1 mmol/L (3.5-5.1) 07/24/18 06:48 Chloride 101 mmol/L (98-107) 07/24/18 06:48 Carbon Dioxide 31.2 mmol/L (21.0-32.0) 07/24/18 06:48 Anion Gap 3.8 mmol/L (3-11) 07/24/18 06:48 BUN 13 mg/dL (7-18) 07/24/18 06:48 Creatinine 0.54 mg/dL (0.55-1.02) L 07/24/18 06:48 Estimated GFR/1.73 m2 >= 60.00 (mL/min/1.73m2) 07/24/18 06:48 Glucose 62 mg/dL (70-100) L 07/24/18 06:48 Calcium 7.7 mg/dL (8.5-10.1) L 07/24/18 06:48 Magnesium 2.1 mg/dL (1.8-2.4) 07/24/18 06:48 Total Bilirubin 2.7 mg/dL (0.2-1.0) H 07/24/18 06:48 Conjugated Bilirubin 1.80 mg/dL (0.00-0.20) H 07/23/18 06:38 AST 185 U/L (15-37) H 07/24/18 06:48 ALT 84 U/L (12-78) H 07/24/18 06:48 Alkaline Phosphatase 264 U/L (46-116) H 07/24/18 06:48 Ammonia < 10 umol/L (11-32) L 07/20/18 08:55 Troponin I < 0.02 ng/mL (0.00-0.06) 07/20/18 08:24 NT-Pro-B Natriuret Pep 109 pg/mL (-299) 07/20/18 08:24 Total Protein 7.6 g/dL (6.4-8.2) 07/24/18 06:48 Albumin 1.9 g/dL (3.4-5.0) L 07/24/18 06:48 Lipase 138 U/L (73-393) 07/20/18 08:24 TSH 1.82 uIU/mL (0.358-3.74) 07/21/18 07:08 Urine Color [place] (Yellow) 07/20/18 09:50 Urine Clarity Clear 07/20/18 09:50 Urine pH 6.5 (5-8) 07/20/18 09:50 Ur Specific [place] 1.010 (1.005-1.025) 07/20/18 09:50 Urine Protein Negative mg/dL (Negative) 07/20/18 09:50 Urine Ketones 40 mg/dL (Negative) H 07/20/18 09:50 Urine Blood Negative (Negative) 07/20/18 09:50 Urine Nitrite Negative (Negative) 07/20/18 09:50 Urine Bilirubin Moderate (Negative) H 07/20/18 09:50 Urine Urobilinogen 4.0 EU/dL (Up TO 0.2) H 07/20/18 09:50 Ur Leukocyte Esterase Negative (Negative) 07/20/18 09:50 Urine Glucose Negative mg/dL (Negative) 07/20/18 09:50 Fluid Source Peritoneal 07/22/18 11:16 Fluid Color Other 07/22/18 11:16 Fluid Appearance Cloudy 07/22/18 11:16 Fluid WBC /MM3 (0-0) 07/22/18 11:16 Fluid Hematocrit Cancelled 07/22/18 11:16 Fluid Mononuclear Cell 94 % (0-0) H 07/22/18 11:16 Fl Polymorphonucl Cell 6 % (0-0) H 07/22/18 11:16
[2018-07-24] MEDS: Refresh PLUS Eye Drops 0.4ml 1 EACH OU (17:41)
[2018-07-25] MEDS: oxyCODONE 5 MG TAB PO ×3 (03:00→20:12)
[2018-07-25 03:01] VITALS: BP 166/97; PULSE 85; RESP 18; TEMP 35.6; O2SAT 93
[2018-07-25] MEDS: Normal Saline Flush 10 ML SYR IVP ×5 (04:00→20:11)
[2018-07-25] MEDS: Refresh PLUS Eye Drops 0.4ml 1 EACH OU ×3 (04:01→22:37)
[2018-07-25 07:15] LABS: Absolute Basophil Count 0.02 k/cumm (0.0-0.2); Basophils % 0.2; HGB 12.9 g/dL (12.0-15.5)
[2018-07-25 07:31] LABS: Absolute Eosinophil Count 0.14 k/cumm (0.0-0.7); Absolute Lymphocyte Count 3.44 k/cumm (1.2-3.4); Absolute Monocyte Count 0.72 k/cumm (0.11-0.7); Eosinophils % 1.6; HCT 36.8 % (36.0-46.0); Immature Grans % 1.1; Lymphocytes % 39.4; Mean Corp. HGB Concentration 35.1 g/dL (32.0-36.0); Mean Corpuscular Hemoglobin 37.3 pg (27.0-33.0); Mean Corpuscular Volume 106.4 fL (80-95); Mean Platelet Volume 9.2 fL (8.0-11.0); Monocytes % 8.3; Neutrophils % 49.4; Platelet Count 113 x1000/uL (130-400); RBC 3.46 m/cumm (4.00-5.20); RBC Distribution Width 20.3 % (11.7-14.6); White Blood Cell Count 8.72 k/cumm (4.4-10.8)
[2018-07-25 07:33] LABS: ALT 73 U/L (12-78); AST 151 U/L (15-37); Albumin 1.8 g/dL (3.4-5.0); Alkaline Phosphatase 277 U/L (46-116); Anion Gap 1.4 mmol/L (3-11); BUN 14 mg/dL (7-18); CO2 32.6 mmol/L (21.0-32.0); CREATININE 0.64 mg/dL (0.55-1.02); Calcium 7.9 mg/dL (8.5-10.1); Chloride 102 mmol/L (98-107); Glucose 71 mg/dL (70-100); Potassium 4.1 mmol/L (3.5-5.1); Sodium 136 mmol/L (136-145); Total Protein 7.2 g/dL (6.4-8.2)
[2018-07-25 08:24] VITALS: BP 131/84; PULSE 78; RESP 22; TEMP 36.8; O2SAT 91
[2018-07-25] MEDS: Docusate Sodium 100 MG CAP PO ×2 (09:20→20:12)
[2018-07-25] MEDS: Gabapentin 400 MG CAP 800 MG PO ×2 (09:20→20:13)
[2018-07-25] MEDS: Multivitamin TAB 1 TAB PO (09:21)
[2018-07-25] MEDS: Nadolol 40 MG TAB 20 MG PO (09:21)
[2018-07-25] MEDS: Spironolactone 50 MG TAB 100 MG PO (09:21)
[2018-07-25] MEDS: Pantoprazole 40 MG TABCR PO (09:21)
[2018-07-25] MEDS: Furosemide 40 MG TAB PO (09:22)
[2018-07-25] MEDS: Thiamine 100 MG TAB PO (09:22)
[2018-07-25] MEDS: predniSONE 20 MG TAB PO (09:22)
[2018-07-25] MEDS: Folic Acid 1 MG TAB PO (09:22)
[2018-07-25 11:17] LABS: HBs Antibody, Qual Negative; HBs Antibody, Quant <3.1 mIU/mL; Hepatitis B Core Antibody Negative (NEGAT); Hepatitis B surface Ag Negative (NEGAT); Hepatitis C Ab w Rflx HCV PCR SEE COMMENTS (NEGAT)
[2018-07-25 11:30] VITALS: BP 124/83; PULSE 88; RESP 20; TEMP 37.6; O2SAT 96
--- NOTE | 2018-07-25 11:33 | PDOC.CMPRO ---
- If Service Date Differs Date of service: 07/25/18 Time of Service: 11:33 Care Management Progress Note S/O: Lisseth is lying in bed when this fha underwriter visits this morning. She state that she isn't doing very well today, and that she believes she will remain at [facility] for a few more days. No change in DC plan. A: 58 y/o female admitted 07/20/18 for Ascites, due to toxic liver disease. P: Lisseth will return home when medically cleared with no anticipated services. She will F/U with PCP and plan of care as prescribed. Lisseth will transport via [facility].
--- NOTE | 2018-07-25 11:36 | CMPROGNOTE_ITS ---
- If Service Date Differs Date of service: 07/25/18 Time of Service: 11:33 Care Management Progress Note S/O: Lisseth is lying in bed when this screen writer visits this morning. She state that she isn't doing very well today, and that she believes she will remain at [facility] for a few more days. No change in DC plan. A: 58 y/o female admitted 07/20/18 for Ascites, due to toxic liver disease. P: Lisseth will return home when medically cleared with no anticipated services. She will F/U with PCP and plan of care as prescribed. Lisseth will transport via [facility].
[2018-07-25] MEDS: hydrOXYzine HCL 25 MG TAB PO ×2 (12:47→20:12)
[2018-07-25 15:37] LABS: Bilirubin Negative (Negative); Blood Moderate (Negative); Clarity Clear; Glucose Negative (Negative); Ketones Negative (Negative); Leukocyte Esterase Negative (Negative); Nitrite Negative (Negative); pH 6.5 (5-8)
[2018-07-25 15:53] LABS: Bacteria Negative HPF (Negative); C & S Indicated? No; Casts Negative LPF (Negative); Crystals Negative HPF (Negative); Epithelial Cells Negative HPF (Negative); Mucus Negative (Negative); Other Cells Negative (Negative); WBC Negative HPF (0-5)
[2018-07-25 15:59] VITALS: BP 113/76; PULSE 77; RESP 17; TEMP 36.4; O2SAT 96
--- NOTE | 2018-07-25 18:08 | W.PM.PROGNOT ---
Date of Service Date of service: 07/25/18 Time of Service: 18:09 Assessment and Plan (1) Ascites with chronic active hepatitis due to toxic liver disease: Current visit: Yes Status: Acute Currently tolerating lasix, aldactone, and nadolol. Increase dose today, with continued monitoring of blood pressure, renal function, and electrolytes. s/p Paracenthesis - unfortunately, cell count could not be performed, and current cultures negative, although on antibiotic therapy. Patient presented without a fever or altered mental status, but with abdominal tenderness. However, tenderness has been ongoing for weeks, and has continued despite appropriate antibiotic course - highly doubt SBP. Currently completing 5 day course with Ceftriaxone which will be discontinued following administration. (2) Cirrhosis, alcoholic: Current visit: Yes Status: Chronic Cirrhosis in setting of both ETOH and HCV. Treatment as above. Will need GI follow-up as outpatient. Had planned on potential repeat tap for comfort, but in review of imaging and discussion with surgery, does not appear to have substantial fluid left for any significant fluid removal, and only had 400 cc's out during initial thoracentesis. (3) Varices of other sites: Current visit: Yes Status: Acute Initiated on Nadolol. (4) COPD (chronic obstructive pulmonary disease): Current visit: Yes Status: Chronic Continue current therapy with steroids, weaned yesterday, antibiotics, and nebs. Current exam reassuring. (5) Alcohol abuse: Current visit: Yes Status: Chronic Maintain on CIWA protocol - Gabapentin and Oxazepam initiated as well. Continue FA, Thiamine. Patient counseled on cessation previously. (6) Tobacco abuse: Current visit: Yes Status: Acute Noted. Continue NRT with Nicotrol. (7) DVT prophylaxis: Current visit: Yes Status: Acute SCD's, TEDS. Subjective Interval history since last seen: 58 year old woman with a prior history of HCV and chronic alcohol and tobacco abuse, admitted from [facility] Emergency Department with a new diagnosis of Cirrhosis with ascites and abdominal pain. Ms. Fong has a history of Hepatitis C, with ongoing active ETOH abuse. She also has daily tobacco use and underlying COPD. She presented to the ED with complaints of abdominal swelling that developed 2-3 months prior, but acutely worsened with onset of pain for the past 1-2 weeks. She also reports a cough productive of green sputum and shortness of breath x 1 - 2 weeks. Imaging showed evidence of Cirrhosis, as well as presence of ascites and esophageal varices. She underwent a paracentesis, nondiagnostic due to inappropriate tubing. Also on empiric antibiotic therapy for coverage of SBP. This morning the patient feels overall improved, but with continued abdominal pain that is described as ongoing for several weeks, mostly left sided and extending around the flank area. No overnight events reported. Remains afebrile. Exam Narrative Exam Narrative: General: Patient appears comfortable, AAOX3, NAD Neck: Supple CV: Regular, nontachycardic, S1S2, No rubs, murmurs, or gallops. Pulmonary: Clear to auscultation bilaterally, no crackles, wheezing, or rhonchi Abdomen: + Bowel Sounds, soft, tender diffusely without rebound, distended. Mild echymosis left abdomen at site of reported Paracentesis Vascular: +1 pitting b/l lower extremity edema Psych: Normal mood and affect. Objective Objective Clinical Data: Abnormal lab results 07/25/18 07/25/18 07/25/18 Range/Units 06:35 06:35 10:42 RBC 3.46 L (4.00-5.20) m/cumm MCV 106.4 H (80-95) fL MCH 37.3 H (27.0-33.0) pg RDW 20.3 H (11.7-14.6) % Plt Count 113 L (130-400) x1000/uL Absolute Lymphocytes 3.44 H (1.2-3.4) k/cumm Absolute Monocytes 0.72 H (0.11-0.7) k/cumm Carbon Dioxide 32.6 H (21.0-32.0) mmol/L Anion Gap 1.4 L (3-11) mmol/L Calcium 7.9 L (8.5-10.1) mg/dL Total Bilirubin 2.0 H (0.2-1.0) mg/dL AST 151 H (15-37) U/L Alkaline Phosphatase 277 H (46-116) U/L Albumin 1.8 L (3.4-5.0) g/dL Urine Blood Moderate H (Negative) Urine Urobilinogen 1.0 H (Up TO 0.2) EU/dL Urine RBC 5-10 H (0-2) Vital Signs Temperature 36.4 C L 07/25/18 15:59 Temperature Source Tympanic 07/25/18 15:59 Pulse 77 07/25/18 15:59 Pulse Rhythm Regular 07/24/18 23:43 Respiratory Rate 17 07/25/18 15:59 Respiratory Effort 07/25/18 11:18 Respiratory Depth Normal 07/25/18 11:18 Respiratory Pattern Normal 07/25/18 11:18 Blood Pressure 113/76 07/25/18 15:59 Pulse Oximetry 96 07/25/18 15:59 Oxygen Delivery Method Room Air 07/25/18 15:59 Oxygen Flow Rate 0 07/25/18 15:59 Pain Level 9 07/25/18 18:03 Comment 07/22/18 03:05 Intake & Output 07/24/18 07/25/18 07/25/18 23:59 11:59 23:59 Intake Total 650 / 1190 480 / 1510 1030 / 1510 Output Total 800 / 2200 2250 / 2250 Balance -150 / -1010 -1770 / -740 1030 / -740 Weight 75.7 kg Intake: IV 50 / 50 Oral 600 / 1140 480 / 1510 1030 / 1510 Output: Urine 800 / 2200 2250 / 2250 Other: Urine Color Yellow Yellow Urine Appearance Clear Cloudy Urine Odor Normal None Comment void x 2 during noc Stool Size Moderate Stool Characteristics Soft Formed Brown Voiding Methods Toilet Toilet Laboratory Results WBC 8.72 k/cumm (4.4-10.8) 07/25/18 06:35 RBC 3.46 m/cumm (4.00-5.20) L 07/25/18 06:35 Hgb 12.9 g/dL (12.0-15.5) 07/25/18 06:35 Hct 36.8 % (36.0-46.0) 07/25/18 06:35 MCV 106.4 fL (80-95) H 07/25/18 06:35 MCH 37.3 pg (27.0-33.0) H 07/25/18 06:35 MCHC 35.1 g/dL (32.0-36.0) 07/25/18 06:35 RDW 20.3 % (11.7-14.6) H 07/25/18 06:35 Plt Count 113 x1000/uL (130-400) L 07/25/18 06:35 MPV 9.2 fL (8.0-11.0) 07/25/18 06:35 Immature Gran % 1.1 07/25/18 06:35 Neutrophils % 49.4 07/25/18 06:35 Lymphocytes % 39.4 07/25/18 06:35 Monocytes % 8.3 07/25/18 06:35 Eosinophils % 1.6 07/25/18 06:35 Basophils % 0.2 07/25/18 06:35 Absolute Neutrophils 4.30 k/cumm (1.2-6.7) 07/25/18 06:35 Absolute Lymphocytes 3.44 k/cumm (1.2-3.4) H 07/25/18 06:35 Absolute Monocytes 0.72 k/cumm (0.11-0.7) H 07/25/18 06:35 Absolute Eosinophils 0.14 k/cumm (0.0-0.7) 07/25/18 06:35 Absolute Basophils 0.02 k/cumm (0.0-0.2) 07/25/18 06:35 Differential Comment Rbc morph reviewed 07/24/18 06:48 RBC Morphology See below 07/24/18 06:48 Polychromasia Present 07/24/18 06:48 Poikilocytosis 1+ 07/22/18 06:30 Anisocytosis 2+ 07/24/18 06:48 Macrocytosis 2+ 07/24/18 06:48 PT 14.7 sec (9.3-11.0) H 07/20/18 08:24 INR 1.5 (0.9-1.1) H 07/20/18 08:24 APTT 27.2 sec (21.0-31.4) 07/20/18 08:24 Sodium 136 mmol/L (136-145) 07/25/18 06:35 Potassium 4.1 mmol/L (3.5-5.1) 07/25/18 06:35 Chloride 102 mmol/L (98-107) 07/25/18 06:35 Carbon Dioxide 32.6 mmol/L (21.0-32.0) H 07/25/18 06:35 Anion Gap 1.4 mmol/L (3-11) L 07/25/18 06:35 BUN 14 mg/dL (7-18) 07/25/18 06:35 Creatinine 0.64 mg/dL (0.55-1.02) 07/25/18 06:35 Estimated GFR/1.73 m2 >= 60.00 (mL/min/1.73m2) 07/25/18 06:35 Glucose 71 mg/dL (70-100) 07/25/18 06:35 Calcium 7.9 mg/dL (8.5-10.1) L 07/25/18 06:35 Magnesium 2.0 mg/dL (1.8-2.4) 07/25/18 06:35 Total Bilirubin 2.0 mg/dL (0.2-1.0) H 07/25/18 06:35 Conjugated Bilirubin 1.80 mg/dL (0.00-0.20) H 07/23/18 06:38 AST 151 U/L (15-37) H 07/25/18 06:35 ALT 73 U/L (12-78) 07/25/18 06:35 Alkaline Phosphatase 277 U/L (46-116) H 07/25/18 06:35 Ammonia < 10 umol/L (11-32) L 07/20/18 08:55 Troponin I < 0.02 ng/mL (0.00-0.06) 07/20/18 08:24 NT-Pro-B Natriuret Pep 109 pg/mL (-299) 07/20/18 08:24 Total Protein 7.2 g/dL (6.4-8.2) 07/25/18 06:35 Albumin 1.8 g/dL (3.4-5.0) L 07/25/18 06:35 Lipase 138 U/L (73-393) 07/20/18 08:24 TSH 1.82 uIU/mL (0.358-3.74) 07/21/18 07:08 Urine Color Yellow (Yellow) 07/25/18 10:42 Urine Clarity Clear 07/25/18 10:42 Urine pH 6.5 (5-8) 07/25/18 10:42 Ur Specific [place] 1.010 (1.005-1.025) 07/25/18 10:42 Urine Protein Negative mg/dL (Negative) 07/25/18 10:42 Urine Ketones Negative mg/dL (Negative) 07/25/18 10:42 Urine Blood Moderate (Negative) H 07/25/18 10:42 Urine Nitrite Negative (Negative) 07/25/18 10:42 Urine Bilirubin Negative (Negative) 07/25/18 10:42 Urine Urobilinogen 1.0 EU/dL (Up TO 0.2) H 07/25/18 10:42 Ur Leukocyte Esterase Negative (Negative) 07/25/18 10:42 Urine RBC 5-10 (0-2) H 07/25/18 10:42 Urine WBC Negative HPF (0-5) 07/25/18 10:42 Ur Epithelial Cells Negative HPF (Negative) 07/25/18 10:42 Urine Crystals Negative HPF (Negative) 07/25/18 10:42 Urine Bacteria Negative HPF (Negative) 07/25/18 10:42 Urine Casts Negative LPF (Negative) 07/25/18 10:42 Urine Mucus Negative (Negative) 07/25/18 10:42 Urine Other Negative (Negative) 07/25/18 10:42 Ur Culture Indicated? No 07/25/18 10:42 Urine Glucose Negative mg/dL (Negative) 07/25/18 10:42 Fluid Source Peritoneal 07/22/18 11:16 Fluid Color Other 07/22/18 11:16 Fluid Appearance Cloudy 07/22/18 11:16 Fluid WBC /MM3 (0-0) 07/22/18 11:16 Fluid Hematocrit Cancelled 07/22/18 11:16 Fluid Mononuclear Cell 94 % (0-0) H 07/22/18 11:16 Fl Polymorphonucl Cell 6 % (0-0) H 07/22/18 11:16 Path Cons Comment 07/22/18 11:16
[2018-07-25 20:09] VITALS: BP 138/100; PULSE 80; RESP 19; TEMP 36.5; O2SAT 93
[2018-07-25 23:20] VITALS: BP 104/69; PULSE 72; RESP 18; TEMP 36.8; O2SAT 94
[2018-07-26] MEDS: oxyCODONE 5 MG TAB PO ×4 (01:14→19:53)
[2018-07-26 03:45] VITALS: BP 109/60; PULSE 77; RESP 18; TEMP 36.3; O2SAT 95
[2018-07-26] MEDS: Normal Saline Flush 10 ML SYR IVP ×3 (05:21→19:52)
--- NOTE | 2018-07-26 05:36 | NUR.NOTE ---
Nursing Note: Pt asked me to look at a rash on her bottom. She had just showered and reported she was itchy in that area. I noted a pustule type rash in loose clusters. I reported this to the charge nurse as it looks suspicious for sacral herpes virus outbreak.
[2018-07-26 07:18] LABS: Absolute Basophil Count 0.02 k/cumm (0.0-0.2); Absolute Eosinophil Count 0.17 k/cumm (0.0-0.7); Absolute Lymphocyte Count 4.54 k/cumm (1.2-3.4); Absolute Monocyte Count 0.85 k/cumm (0.11-0.7); Absolute Neutrophil Count 4.08 k/cumm (1.2-6.7); Basophils % 0.2; Eosinophils % 1.7; HCT 40.2 % (36.0-46.0); HGB 13.7 g/dL (12.0-15.5); Lymphocytes % 46.5; Mean Corp. HGB Concentration 34.1 g/dL (32.0-36.0); Mean Corpuscular Hemoglobin 36.2 pg (27.0-33.0); Mean Corpuscular Volume 106.3 fL (80-95); Mean Platelet Volume 9.4 fL (8.0-11.0); Monocytes % 8.7; Neutrophils % 41.9; Platelet Count 111 x1000/uL (130-400); RBC 3.78 m/cumm (4.00-5.20); White Blood Cell Count 9.76 k/cumm (4.4-10.8)
[2018-07-26 07:21] VITALS: BP 122/87; PULSE 73; RESP 19; TEMP 35.6; O2SAT 94
[2018-07-26 07:25] LABS: ALT 79 U/L (12-78); AST 149 U/L (15-37); Albumin 2.3 g/dL (3.4-5.0); Alkaline Phosphatase 328 U/L (46-116); Anion Gap 4.4 mmol/L (3-11); BUN 16 mg/dL (7-18); Bilirubin, Total 2.2 mg/dL (0.2-1.0); CO2 32.6 mmol/L (21.0-32.0); CREATININE 0.72 mg/dL (0.55-1.02); Calcium 8.5 mg/dL (8.5-10.1); Chloride 98 mmol/L (98-107); Glucose 82 mg/dL (70-100); Potassium 3.8 mmol/L (3.5-5.1); Sodium 135 mmol/L (136-145); Total Protein 8.2 g/dL (6.4-8.2)
[2018-07-26] MEDS: Gabapentin 400 MG CAP 800 MG PO ×2 (07:37→19:53)
[2018-07-26] MEDS: Docusate Sodium 100 MG CAP PO ×2 (07:37→19:53)
[2018-07-26] MEDS: Spironolactone 50 MG TAB 100 MG PO (07:38)
[2018-07-26] MEDS: Thiamine 100 MG TAB PO (07:38)
[2018-07-26] MEDS: Pantoprazole 40 MG TABCR PO (07:38)
[2018-07-26] MEDS: Multivitamin TAB 1 TAB PO (07:38)
[2018-07-26] MEDS: Nadolol 40 MG TAB 20 MG PO (07:38)
[2018-07-26] MEDS: Folic Acid 1 MG TAB PO (07:39)
[2018-07-26] MEDS: predniSONE 20 MG TAB PO (07:39)
[2018-07-26] MEDS: Furosemide 40 MG TAB PO (07:39)
[2018-07-26 11:10] VITALS: BP 94/58; PULSE 73; RESP 18; TEMP 36.2; O2SAT 92
--- NOTE | 2018-07-26 13:46 | CMPROGNOTE_ITS ---
- If Service Date Differs Date of service: 07/26/18 Time of Service: 13:45 Care Management Progress Note S/O: Lisseth is lying in bed this morning, when this information writer visits. She is pleasant and receptive to discussion. Per nursing report Lisseth potentially has shingles, and has therefore been placed on precautions, she also continues to endorse abdominal pain. No change in DC plan at this time. A: 58 y/o female admitted 07/20/18 for Ascites, due to toxic liver disease. P: Lisseth will return home when medically cleared with no anticipated services. She will F/U with PCP and plan of care as prescribed. Lisseth will transport via [facility].
--- NOTE | 2018-07-26 14:42 | W.PM.PROGNOT ---
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 Blood pressure, renal function, and electrolytes all stable. s/p Paracenthesis - unfortunately, cell count could not be performed, and current cultures negative. Patient presented without a fever or altered mental status, but with abdominal tenderness that persists despite antibiotic therapy and has been ongoing for weeks - highly doubt SBP. Completed empiric 5 day course with Ceftriaxone. (2) Cirrhosis, alcoholic: Current visit: Yes Status: Chronic Cirrhosis in setting of both ETOH and HCV. Treatment as above. Will need GI follow-up as outpatient. Had planned on potential repeat tap for comfort, but in review of imaging and discussion with surgery, does not appear to have substantial fluid left for any significant fluid removal, and only had 400 cc's out during initial thoracentesis. (3) Varices of other sites: Current visit: Yes Status: Acute Initiated on Nadolol. (4) COPD (chronic obstructive pulmonary disease): Current visit: Yes Status: Chronic Finished course of steroids. Continue prn nebs. Current exam reassuring. (5) Alcohol abuse: Current visit: Yes Status: Chronic Maintain on CIWA protocol - Gabapentin and Oxazepam initiated as well. Continue FA, Thiamine. Patient counseled on cessation previously. (6) Tobacco abuse: Current visit: Yes Status: Acute Noted. Continue NRT with Nicotrol. (7) Vaginal bleeding: Current visit: Yes Status: Acute Reported vaginal 'spotting'. Evidence of drops of blood on blanket that she was sitting on. Urinalysis checked and with moderate blood with RBCs on microscopy. Patient also with history of cirrhosis with variceal disease - may have hemorrhoids as well as etiology. No Anemia. CT scan on 07/20 without note of uterine abnormality/mass ('Reproductive organs unremarkable'). Deferred vaginal exam for now - will reevaluate tomorrow. (8) Rash: Current visit: Yes Status: Acute Doubt shingles as etiology as rash crosses midline, and is equal bilaterally on lower back. Unsure if this represents a heat rash, drug rash, contact dermatitis, or other. Monitor for now. (9) DVT prophylaxis: Current visit: Yes Status: Acute SCD's, TEDS. Subjective Interval history since last seen: 58 year old woman with a prior history of HCV and chronic alcohol and tobacco abuse, admitted from [facility] Emergency Department with a new diagnosis of Cirrhosis with ascites and abdominal pain. Ms. Fong has a history of Hepatitis C, with ongoing active ETOH abuse. She also has daily tobacco use and underlying COPD. She presented to the ED with complaints of abdominal swelling that developed 2-3 months prior, but acutely worsened with onset of pain for the past 1-2 weeks. She also reports a cough productive of green sputum and shortness of breath x 1 - 2 weeks. Imaging showed evidence of Cirrhosis, as well as presence of ascites and esophageal varices. She underwent a paracentesis, nondiagnostic due to inappropriate tubing. Also concluded empiric antibiotic therapy for SBP. This morning the patient feels overall improved, but with continued complaints of abdominal pain that is described as ongoing for several weeks to months. Also with complaints of rash on back, and vaginal 'spotting'. No overnight events reported. Remains afebrile. Exam Narrative Exam Narrative: General: Patient appears comfortable, AAOX3, NAD Skin: Small, papular rash b/l lower lumber, upper sacral area. Neck: Supple CV: Regular, nontachycardic, S1S2, No rubs, murmurs, or gallops. Pulmonary: Clear to auscultation bilaterally, no crackles, wheezing, or rhonchi Abdomen: + Bowel Sounds, soft, minimally tender diffusely without rebound, distended. Musculoskeletal: Pain on palpation of left thoracolumbar paraspinal muscles Vascular: +1 pitting b/l lower extremity edema Psych: Normal mood and affect. Objective Objective Clinical Data: Abnormal lab results 07/25/18 07/26/18 07/26/18 Range/Units 10:42 06:25 06:25 RBC 3.78 L (4.00-5.20) m/cumm MCV 106.3 H (80-95) fL MCH 36.2 H (27.0-33.0) pg RDW 20.0 H (11.7-14.6) % Plt Count 111 L (130-400) x1000/uL Absolute Lymphocytes 4.54 H (1.2-3.4) k/cumm Absolute Monocytes 0.85 H (0.11-0.7) k/cumm Sodium 135 L (136-145) mmol/L Carbon Dioxide 32.6 H (21.0-32.0) mmol/L Total Bilirubin 2.2 H (0.2-1.0) mg/dL AST 149 H (15-37) U/L ALT 79 H (12-78) U/L Alkaline Phosphatase 328 H (46-116) U/L Albumin 2.3 L (3.4-5.0) g/dL Urine Blood Moderate H (Negative) Urine Urobilinogen 1.0 H (Up TO 0.2) EU/dL Urine RBC 5-10 H (0-2) Vital Signs Temperature 36.2 C L 07/26/18 11:10 Temperature Source Tympanic 07/26/18 11:10 Pulse 73 07/26/18 11:10 Pulse Rhythm Regular 07/26/18 07:35 Respiratory Rate 18 07/26/18 11:10 Respiratory Effort Non-Labored 07/26/18 07:35 Respiratory Depth Normal 07/26/18 07:35 Respiratory Pattern Normal 07/26/18 07:35 Blood Pressure 94/58 L 07/26/18 11:10 Pulse Oximetry 92 L 07/26/18 11:10 Oxygen Delivery Method Room Air 07/26/18 11:10 Oxygen Flow Rate 0 07/26/18 11:10 Pain Level 8 07/26/18 13:50 Comment 07/22/18 03:05 Intake & Output 07/25/18 07/26/18 07/26/18 23:59 11:59 23:59 Intake Total 1090 / 1570 1025 / 1025 Balance 1090 / -680 1025 / 1025 Weight 74.8 kg Intake: IV 60 / 60 10 / 10 Oral 1030 / 1510 1015 / 1015 Other: Urine Appearance Cloudy Voiding Methods Toilet Laboratory Results WBC 9.76 k/cumm (4.4-10.8) 07/26/18 06:25 RBC 3.78 m/cumm (4.00-5.20) L 07/26/18 06:25 Hgb 13.7 g/dL (12.0-15.5) 07/26/18 06:25 Hct 40.2 % (36.0-46.0) 07/26/18 06:25 MCV 106.3 fL (80-95) H 07/26/18 06:25 MCH 36.2 pg (27.0-33.0) H 07/26/18 06:25 MCHC 34.1 g/dL (32.0-36.0) 07/26/18 06:25 RDW 20.0 % (11.7-14.6) H 07/26/18 06:25 Plt Count 111 x1000/uL (130-400) L 07/26/18 06:25 MPV 9.4 fL (8.0-11.0) 07/26/18 06:25 Immature Gran % 1.0 07/26/18 06:25 Neutrophils % 41.9 07/26/18 06:25 Lymphocytes % 46.5 07/26/18 06:25 Monocytes % 8.7 07/26/18 06:25 Eosinophils % 1.7 07/26/18 06:25 Basophils % 0.2 07/26/18 06:25 Absolute Neutrophils 4.08 k/cumm (1.2-6.7) 07/26/18 06:25 Absolute Lymphocytes 4.54 k/cumm (1.2-3.4) H 07/26/18 06:25 Absolute Monocytes 0.85 k/cumm (0.11-0.7) H 07/26/18 06:25 Absolute Eosinophils 0.17 k/cumm (0.0-0.7) 07/26/18 06:25 Absolute Basophils 0.02 k/cumm (0.0-0.2) 07/26/18 06:25 Differential Comment Rbc morph reviewed 07/24/18 06:48 RBC Morphology See below 07/24/18 06:48 Polychromasia Present 07/24/18 06:48 Poikilocytosis 1+ 07/22/18 06:30 Anisocytosis 2+ 07/24/18 06:48 Macrocytosis 2+ 07/24/18 06:48 PT 14.7 sec (9.3-11.0) H 07/20/18 08:24 INR 1.5 (0.9-1.1) H 07/20/18 08:24 APTT 27.2 sec (21.0-31.4) 07/20/18 08:24 Sodium 135 mmol/L (136-145) L 07/26/18 06:25 Potassium 3.8 mmol/L (3.5-5.1) 07/26/18 06:25 Chloride 98 mmol/L (98-107) 07/26/18 06:25 Carbon Dioxide 32.6 mmol/L (21.0-32.0) H 07/26/18 06:25 Anion Gap 4.4 mmol/L (3-11) 07/26/18 06:25 BUN 16 mg/dL (7-18) 07/26/18 06:25 Creatinine 0.72 mg/dL (0.55-1.02) 07/26/18 06:25 Estimated GFR/1.73 m2 >= 60.00 (mL/min/1.73m2) 07/26/18 06:25 Glucose 82 mg/dL (70-100) 07/26/18 06:25 Calcium 8.5 mg/dL (8.5-10.1) 07/26/18 06:25 Magnesium 2.0 mg/dL (1.8-2.4) 07/26/18 06:25 Total Bilirubin 2.2 mg/dL (0.2-1.0) H 07/26/18 06:25 Conjugated Bilirubin 1.80 mg/dL (0.00-0.20) H 07/23/18 06:38 AST 149 U/L (15-37) H 07/26/18 06:25 ALT 79 U/L (12-78) H 07/26/18 06:25 Alkaline Phosphatase 328 U/L (46-116) H 07/26/18 06:25 Ammonia < 10 umol/L (11-32) L 07/20/18 08:55 Troponin I < 0.02 ng/mL (0.00-0.06) 07/20/18 08:24 NT-Pro-B Natriuret Pep 109 pg/mL (-299) 07/20/18 08:24 Total Protein 8.2 g/dL (6.4-8.2) 07/26/18 06:25 Albumin 2.3 g/dL (3.4-5.0) L 07/26/18 06:25 Lipase 138 U/L (73-393) 07/20/18 08:24 TSH 1.82 uIU/mL (0.358-3.74) 07/21/18 07:08 Urine Color Yellow (Yellow) 07/25/18 10:42 Urine Clarity Clear 07/25/18 10:42 Urine pH 6.5 (5-8) 07/25/18 10:42 Ur Specific [place] 1.010 (1.005-1.025) 07/25/18 10:42 Urine Protein Negative mg/dL (Negative) 07/25/18 10:42 Urine Ketones Negative mg/dL (Negative) 07/25/18 10:42 Urine Blood Moderate (Negative) H 07/25/18 10:42 Urine Nitrite Negative (Negative) 07/25/18 10:42 Urine Bilirubin Negative (Negative) 07/25/18 10:42 Urine Urobilinogen 1.0 EU/dL (Up TO 0.2) H 07/25/18 10:42 Ur Leukocyte Esterase Negative (Negative) 07/25/18 10:42 Urine RBC 5-10 (0-2) H 07/25/18 10:42 Urine WBC Negative HPF (0-5) 07/25/18 10:42 Ur Epithelial Cells Negative HPF (Negative) 07/25/18 10:42 Urine Crystals Negative HPF (Negative) 07/25/18 10:42 Urine Bacteria Negative HPF (Negative) 07/25/18 10:42 Urine Casts Negative LPF (Negative) 07/25/18 10:42 Urine Mucus Negative (Negative) 07/25/18 10:42 Urine Other Negative (Negative) 07/25/18 10:42 Ur Culture Indicated? No 07/25/18 10:42 Urine Glucose Negative mg/dL (Negative) 07/25/18 10:42 Fluid Type Peritoneal 07/22/18 11:16 Fluid Source L peritoneal 07/22/18 11:16 Fluid Color Other 07/22/18 11:16 Fluid Appearance Cloudy 07/22/18 11:16 Fluid WBC /MM3 (0-0) 07/22/18 11:16 Fluid Hematocrit Cancelled 07/22/18 11:16 Fluid Mononuclear Cell 94 % (0-0) H 07/22/18 11:16 Fl Polymorphonucl Cell 6 % (0-0) H 07/22/18 11:16 Fluid Total Protein 0.8 g/dL 07/22/18 11:16 Fluid Albumin 310 mg/dL 07/22/18 11:16 Fluid Amylase 12 U/L 07/22/18 11:16 Path Cons Comment 07/22/18 11:16
[2018-07-26 16:05] VITALS: BP 90/58; PULSE 75; RESP 18; TEMP 36.1; O2SAT 89
[2018-07-26] MEDS: hydrOXYzine HCL 25 MG TAB PO (19:53)
[2018-07-26 20:15] VITALS: BP 108/68; PULSE 75; RESP 18; TEMP 36.3; O2SAT 93
[2018-07-26] MEDS: Refresh PLUS Eye Drops 0.4ml 1 EACH OU (20:54)
[2018-07-26 23:31] VITALS: BP 109/73; PULSE 68; RESP 18; TEMP 35.9; O2SAT 92
[2018-07-27] MEDS: oxyCODONE 5 MG TAB PO ×3 (01:22→14:45)
[2018-07-27 03:15] VITALS: BP 117/77; PULSE 83; RESP 18; TEMP 36.9; O2SAT 95
[2018-07-27 07:29] LABS: ALT 75 U/L (12-78); AST 128 U/L (15-37); Albumin 2.1 g/dL (3.4-5.0); Alkaline Phosphatase 247 U/L (46-116); Anion Gap -1.5 mmol/L (3-11); BUN 15 mg/dL (7-18); Bilirubin, Total 2.2 mg/dL (0.2-1.0); CO2 38.5 mmol/L (21.0-32.0); CREATININE 0.76 mg/dL (0.55-1.02); Calcium 8.4 mg/dL (8.5-10.1); Chloride 101 mmol/L (98-107); Glucose 69 mg/dL (70-100); Magnesium 2.1 mg/dL (1.8-2.4); Potassium 3.6 mmol/L (3.5-5.1); Sodium 138 mmol/L (136-145); Total Protein 7.6 g/dL (6.4-8.2)
[2018-07-27 07:35] VITALS: O2SAT 94
[2018-07-27 07:57] LABS: Abs Immature Grans 0.03 k/cumm (0.0-0.09); Absolute Basophil Count 0.03 k/cumm (0.0-0.2); Absolute Eosinophil Count 0.11 k/cumm (0.0-0.7); Absolute Lymphocyte Count 4.02 k/cumm (1.2-3.4); Absolute Monocyte Count 0.76 k/cumm (0.11-0.7); Absolute Neutrophil Count 3.17 k/cumm (1.2-6.7); Basophils % 0.4; Eosinophils % 1.4; HGB 13.4 g/dL (12.0-15.5); Immature Grans % 0.4; Lymphocytes % 49.5; Mean Corp. HGB Concentration 33.5 g/dL (32.0-36.0); Mean Corpuscular Hemoglobin 36.2 pg (27.0-33.0); Mean Corpuscular Volume 108.1 fL (80-95); Mean Platelet Volume 9.8 fL (8.0-11.0); Monocytes % 9.4; Neutrophils % 38.9; Platelet Count 123 x1000/uL (130-400); RBC Distribution Width 20.1 % (11.7-14.6); White Blood Cell Count 8.12 k/cumm (4.4-10.8)
[2018-07-27] MEDS: Docusate Sodium 100 MG CAP PO (08:42)
[2018-07-27] MEDS: Gabapentin 400 MG CAP PO (08:42)
[2018-07-27] MEDS: Multivitamin TAB 1 TAB PO (08:42)
[2018-07-27] MEDS: Pantoprazole 40 MG TABCR PO (08:42)
[2018-07-27] MEDS: Folic Acid 1 MG TAB PO (08:42)
[2018-07-27] MEDS: Spironolactone 50 MG TAB 100 MG PO (08:42)
[2018-07-27] MEDS: Furosemide 40 MG TAB PO (08:43)
[2018-07-27] MEDS: Thiamine 100 MG TAB PO (08:43)
[2018-07-27] MEDS: Nadolol 40 MG TAB 20 MG PO (08:43)
[2018-07-27] MEDS: Refresh PLUS Eye Drops 0.4ml 1 EACH OU (08:43)
[2018-07-27 08:53] VITALS: BP 114/68; PULSE 64; RESP 18; TEMP 36.7; O2SAT 92
[2018-07-27 09:31] LABS: HCV RNA Detection Quantitative 202 IU/mL (UNDECT)
[2018-07-27 11:14] VITALS: BP 99/65; PULSE 69; RESP 18; TEMP 37.2; O2SAT 91
--- NOTE | 2018-07-27 13:50 | PDOC.CMDIS ---
- If Service Date Differs Date of service: 07/27/18 Time of Service: 13:50 LACE Index Scoring Tool - Questions: Length of Stay (in days): 7 - 13 Acuity (Admit via E.D.?): Yes Comorbidities: Chronic Pulmonary Disease E.D. 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 Discharge Plan: Lisseth will return home to the [facility] today with no services. She will F/U with PCP and GI in [place]. Lisseth will transport with [facility] which [facility] has arranged for 1500. [facility], is aware of DC time and mode of transport. Patient/Family Education Needs: Review DC instructions, any limitations, and discuss 'Ask Me Three' Services Needed at Discharge: Transportation ([facility])
--- NOTE | 2018-07-27 13:56 | CMDISCH_ITS ---
- If Service Date Differs Date of service: 07/27/18 Time of Service: 13:50 LACE Index Scoring Tool - Questions: Length of Stay (in days): 7 - 13 Acuity (Admit via E.D.?): Yes Comorbidities: Chronic Pulmonary Disease E.D. 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 Discharge Plan: Lisseth will return home to the [facility] today with no services. She will F/U with PCP and GI in [place]. Lisseth will transport with [facility] which [facility] has arranged for 1500. [facility], is aware of DC time and mode of transport. Patient/Family Education Needs: Review DC instructions, any limitations, and discuss 'Ask Me Three' Services Needed at Discharge: Transportation ([facility])
--- NOTE | 2018-07-27 14:18 | DSE_ITS ---
Date of service: 07/27/18 Time of Service: 14:05 DS: Diagnosis Discharge Diagnosis (1) Ascites with chronic active hepatitis due to toxic liver disease: Status: Acute (2) Cirrhosis, alcoholic: Status: Chronic (3) Varices of other sites: Status: Acute (4) COPD (chronic obstructive pulmonary disease): Status: Chronic (5) Alcohol abuse: Status: Chronic (6) Tobacco abuse: Status: Acute (7) Vaginal bleeding: Status: Acute (8) Rash: Status: Acute Discharge Plan Disposition Patient Disposition: HOME Condition: Stable Discharge Details Reason For Visit: ASCITE, ?SBP, EXACERBATION OF COPD Admit Date/Time: 07/20/18 10:40 Admit Provider: Linda Cadena Attending Provider: Linda Cadena Primary Care Provider: Unknown,Unknown Hospital Course Hospital Course: CC: Abdominal Pain HPI: 58 year old woman with a prior history of HCV and chronic alcohol and tobacco abuse, admitted from [facility] with a new diagnosis of Cirrhosis with ascites and abdominal pain. Ms. Fong has a history of Hepatitis C, with ongoing active ETOH abuse. She also has daily tobacco use and underlying COPD. She presented to the ED with complaints of abdominal swelling that developed 2-3 months prior, but acutely worsened with onset of pain for the past 1-2 weeks. She also reported a cough productive of green sputum and shortness of breath x 1 - 2 weeks. Imaging showed evidence of Cirrhosis, as well as presence of ascites and esophageal varices. She underwent a paracentesis, nondiagnostic due to inappropriate tubing, with minimal fluid removal. Also concluded empiric antibiotic therapy for SBP. This morning the patient feels vastly improved, with improvement in her abdominal pain reported as well. Also with complaints of rash on back that is reported as 'better', and vaginal 'spotting'. No overnight events reported. Remains a febrile. 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 Blood pressure, renal function, and electrolytes all stable. Weight has improved at 74 Kg today. Ms. Fong is s/p Paracenthesis on 07/22 - unfortunately, cell count could not be performed, but with current cultures negative X96 hourss. Patient presented without a fever or altered mental status, but with abdominal tenderness that persisted despite antibiotic therapy and has been ongoing for weeks - highly doubt SBP. CT Scan and Ultrasound reviewed in detail and without responsible pathology. Completed empiric 5 day course with Ceftriaxone. Plan for repeat blood work to ensure stable renal function on current diuretic therapy. (2) Cirrhosis, alcoholic: Cirrhosis in setting of both ETOH and HCV. Treatment as above. Will need GI follow-up as outpatient - scheduled prior to discharge. Had planned on potential repeat tap for comfort, but in review of imaging and discussion with surgery, does not appear to have substantial fluid left for any significant fluid removal, and only had 400 cc's out during initial thoracentesis. (3) Varices of other sites: Tolerating initiated Nadolol. (4) COPD (chronic obstructive pulmonary disease): Finished course of steroids. Continue prn nebs. Current exam reassuring. (5) Alcohol abuse: Maintained on CIWA protocol with standing Gabapentin and Oxazepam as well. No evidence of withdrawl symptoms during a 7 day hospital course. Continue FA, Thiamine. Patient counseled on cessation previously and again prior to discharge. (6) Tobacco abuse: Noted. Continue NRT with Nicotrol. (7) Vaginal bleeding: Reported vaginal 'spotting'. Evidence of drops of blood on blanket that she was sitting on, as well as when wiping. Urinalysis checked and with moderate blood with RBCs on microscopy. Patient also with history of cirrhosis with variceal disease - may have hemorrhoids as well as etiology. No Anemia. CT scan on 07/20 without note of uterine abnormality/mass ('Reproductive organs unremarkable'). Deferred vaginal exam as inpatient, but recommend evaluation soon as an outpatient to ensure appropriate evaluation in case this represents postmenopausal bleeding. (8) Rash: Vesicular rash that appears improved today both clinically and subjectively. Unsure of etiology, but as rash crosses midline and is equal bilaterally on lower back, unsure if shingles is cause. Also unsure if this represents a heat or drug rash, contact dermatitis, or other. Monitor for now with reevaluation by PCP. (9) DVT prophylaxis: Maintained on SCD's, TEDS. Chemical DVT prophylaxis avoided due to Cirrhosis, INR of 1.5, and mild TCP. Home Meds and New Rx's Prescriptions: New furosemide 40 mg Tablet 40 mg PO DAILY Qty: 30 RF: 0 Nicotrol 10 mg Cartridge 10 mg Inhalation Q3H PRN PRNQty: 1 RF: 0 pantoprazole 40 mg Tablet,Delayed Release (Dr/Ec) 40 mg PO DAILY@0730 Qty: 30 RF: 0 nadolol [Corgard] 40 mg Tablet 20 mg PO DAILY Qty: 30 RF: 0 spironolactone 50 mg Tablet 100 mg PO DAILY Qty: 30 RF: 0 oxycodone 5 mg Tablet 5 mg PO Q6H PRN PRNQty: 21 RF: 0 Discontinued Excedrin Migraine 250-250-65 mg Tablet 2 tab PO Q6H PRNRF: 0 Discharge Instructions Instructions: COPD (Chronic Obstructive Pulmonary Disease) (DC), Ascites (DC) Stand Alone Forms: Nursing Discharge Form Referrals: Caio Morales [ [facility] STAFF PHYSICIAN] - 09/13/18 1:00 pm Sandra Mejía NP [NURSE PRACTITIONER] - 08/01/18 2:00 pm Activity:: No Strenuous Activity Equipment/Supplies:: No Equipment Needed Diet:: Hepatic Diet Discharge Orders Discharge Orders: Discharge Order (Routine); Ordered 07/27/18 Ordered By: Paul Arredondo Other Ambulatory Orders: Comprehensive Metabolic Panel (Routine) Location: Determined by Patient Ordered By: Paul Arredondo Exam Narrative Exam Narrative: General: Patient appears comfortable, AAOX3, NAD Skin: Small, papular and vesicular rash b/l lower lumber, upper sacral area, with vesicles appearing crusted over today. Skin is not warm to touch, and not cellulitic in appearance at this time. No underlying Induration or fluctuance. Neck: Supple CV: Regular, nontachycardic, S1S2, No rubs, murmurs, or gallops. Pulmonary: Clear to auscultation bilaterally, no crackles, wheezing, or rhonchi Abdomen: + Bowel Sounds, soft, minimally tender diffusely without rebound, distended. Musculoskeletal: Pain on palpation of left thoracolumbar paraspinal muscles Vascular: +1 pitting b/l lower extremity edema Psych: Normal mood and affect. DS: Data Vitals/I&O Vitals and I&O: Vital Signs Temperature 37.2 C 07/27/18 11:14 Temperature Source Tympanic 07/27/18 11:14 Pulse 69 07/27/18 11:14 Pulse Rhythm Regular 07/26/18 20:00 Respiratory Rate 18 07/27/18 11:14 Respiratory Effort Non-Labored 07/26/18 20:00 Respiratory Depth Normal 07/26/18 20:00 Respiratory Pattern Normal 07/26/18 20:00 Blood Pressure 99/65 L 07/27/18 11:14 Pulse Oximetry 91 L 07/27/18 11:14 Oxygen Delivery Method Room Air 07/27/18 11:14 Oxygen Flow Rate 0 07/27/18 11:14 Pain Level 8 07/27/18 08:43 Comment 07/27/18 03:15 Intake & Output 07/26/18 07/27/18 07/27/18 23:59 11:59 23:59 Intake Total 450 / 1475 750 / 750 Output Total 300 / 300 Balance 450 / 1475 450 / 450 Weight 74 kg Intake: Oral 450 / 1465 750 / 750 Output: Urine 300 / 300 Other: Urine Color Straw Urine Appearance Clear Urine Odor None Comment Void x1 in the toilet. Stool Size Large Stool Characteristics Formed Voiding Methods Toilet Toilet Completed studies during hospitalization [Text1]: Exam(s) 07/20/[address]:CT chest PE abd & pelvis w SYMPTOMS/DIAGNOSIS: SHORTNESS OF BREATH, LUQ ABD PAIN CT SCAN OF THE ABDOMEN AND PELVIS: No priors. The liver is diffusely hypodense. The liver has a lobulated contour with an enlarged left lobe suspicious for hepatic cirrhosis. No hepatic mass is seen. The portal, superior mesenteric and splenic veins are patent. There are stones seen within the gallbladder which is distended. No biliary ductal dilatation is present. The pancreas is unremarkable. The spleen is unremarkable. The adrenal glands are unremarkable. The kidneys show normal and symmetric enhancement. No solid renal mass or obstruction is seen. Hepatic cysts are present. The urinary bladder is intact. The reproductive organs are unremarkable. The abdominal aorta shows mild atherosclerosis. No aneurysmal dilatation. No significant abdominal or pelvic adenopathy or pneumoperitoneum is present. There is a moderate amount of perihepatic and perisplenic ascites and a moderately large amount of pelvic ascites. There are enhancing vessels seen at the gastroesophageal junction and in the anterior abdomen consistent with varices. There is diverticulosis of the colon but no evidence of acute d iverticulitis. The does appear to be low attenuation bowel wall thickening in the ascending colon and proximal transverse colon. The remainder of the bowel appears grossly unremarkable. Degenerative changes are seen in the spine. IMPRESSION: 1. Findings most suggestive of hepatic cirrhosis with abdominal and pelvic ascites and varices. 2. Cholelithiasis and gallbladder distention. No biliary ductal dilatation. 3. Hypoattenuating bowel wall thickening in the ascending colon and proximal transverse colon. Inflammatory or infectious colitis can not be excluded. CT SCAN OF THE CHEST: CT angiography was performed with multi slice acquisition and multi planar and 3D reconstruction. There is no evidence of a pulmonary embolus. The thoracic aorta shows atherosclerosis but no aneurysmal dilatation. The heart size is within normal limits. No significant pericardial effusion is seen. No evidence of right ventricular dysfunction is present. No significant thoracic adenopathy is present. No pleural effusion or pneumothorax is identified. Moderately severe emphysematous changes are seen in the lungs particularly the right upper lobe. There are several bullae seen in the lungs. There is are large bullae seen in the lower lobes. No focal consolidating infiltrates or pulmonary nodules are seen. The tracheobronchial tree is unremarkable. Degenerative changes are seen in the spine. There is a right convex scoliosis of the thoracic spine noted. IMPRESSION: 1. No evidence of a pulmonary embolus. Thoracic aortic dissection or aneurysm. 2. Moderately severe emphysema. ------- Exam(s) a US:US abdomen SYMPTOM/DIAGNOSIS: ABD PAIN, ASCITES ABDOMEN ULTRASOUND: Routine examination. Comparison CT scan is 07/20/18. The aorta was not visualized due to overlying bowel. The IVC is unremarkable. The liver measures 18 cm. in length. It is hyperechoic with a coarsened echotexture. No hepatic mass is seen. The contour of the liver is nodular. The findings are suspicious for hepatic cirrhosis. There are mobile stones seen within the gallbladder. There is gallbladder sludge and pericholecystic fluid. The gallbladder wall measures .4 cm. Common duct is within normal limits at .6 cm. The pancreas was not visualized due to overlying bowel. The spleen is normal in size. The kidneys are unremarkable. There is mild to moderate abdominal ascites seen in all four quadrants. Portal venous flow is hepatopetal. IMPRESSION: 1. Appearance of the liver suggests hepatic cirrhosis. 2. Cholelithiasis and gallbladder sludge. Gallbladder wall mildly thickened. Acute cholecystitis cannot be entirely excluded however some of these findings may be related to the patient's liver status and ascites. 3. Mild to moderate abdominal ascites. Labs on day of discharge: Labs from last 24 hours 07/27/18 07/27/18 07/21/18 06:25 06:25 07:08 WBC 8.12 RBC 3.70 L Hgb 13.4 Hct 40.0 MCV 108.1 H MCH 36.2 H MCHC 33.5 RDW 20.1 H Plt Count 123 L MPV 9.8 Immature Gran % 0.4 Neutrophils % 38.9 Lymphocytes % 49.5 Monocytes % 9.4 Eosinophils % 1.4 Basophils % 0.4 Absolute Neutrophils 3.17 Absolute Lymphocytes 4.02 H Absolute Monocytes 0.76 H Absolute Eosinophils 0.11 Absolute Basophils 0.03 Sodium 138 Potassium 3.6 Chloride 101 Carbon Dioxide 38.5 H Anion Gap -1.5 L BUN 15 Creatinine 0.76 Estimated GFR/1.73 m2 >= 60.00 Glucose 69 L Calcium 8.4 L Magnesium 2.1 Total Bilirubin 2.2 H AST 128 H ALT 75 Alkaline Phosphatase 247 H Total Protein 7.6 Albumin 2.1 L Hep Bs Antigen Negative Hep Bs Antibody Negative Hep Bs Antibody, Quant <3.1 Hep B Core Total Ab Negative Hepatitis C Antibody See comments A HCV RNA Quant (PCR) 202 A Preliminary micro results at discharge 07/22/18 11:16 Anaerobic Culture - Preliminary Paracentesis ON LICENSE OF [facility] Medical History Alcohol abuse (Chronic) Tobacco abuse (Chronic) COPD (chronic obstructive pulmonary disease) (Chronic) Hepatitis C (Chronic) Surgical History History of bilateral tubal ligation (Acute) Family History Sister Anal cancer Other Heart disease Hypertension Social History Smoking and Tabacco status: Current every day Tobacco: How many years used: 44 Pasive smoking exposure: Yes quit status: considering quitting counseling given: provider counseling and support medications alcohol intake: current alcohol intake frequency: 3 or more drinks per day Alcohol type: wine substance use type: former substance user, IV drugs and prescription drug
== END 2018-07-27 15:17 | disposition home or self-care (01) | DRG 442 ==
LOC: ER 11:19 → MS 12:41
PROVIDERS: Surgery; Admitting Provider Internal Medicine; Emergency Provider Physician Assistant; Visit Provider Internal Medicine
DX: K71.51 Toxic liver disease with chronic active hepatitis with ascites (principal); J44.1 Chronic obstructive pulmonary disease with (acute) exacerbation; I85.10 Secondary esophageal varices without bleeding; E87.2 Acidosis; K70.31 Alcoholic cirrhosis of liver with ascites; K74.69 Other cirrhosis of liver; B18.2 Chronic viral hepatitis C; F10.21 Alcohol dependence, in remission; N64.4 Mastodynia; E83.42 Hypomagnesemia; E87.6 Hypokalemia; F17.210 Nicotine dependence, cigarettes, uncomplicated; F19.11 Other psychoactive substance abuse, in remission; J43.9 Emphysema, unspecified; F43.10 Post-traumatic stress disorder, unspecified; I83.93 Asymptomatic varicose veins of bilateral lower extremities; N93.9 Abnormal uterine and vaginal bleeding, unspecified; R31.29 Other microscopic hematuria; R21 Rash and other nonspecific skin eruption
CPT/HCPCS: 36415; 49083; 71275; 74177; 80048; 80053; 80076; 82042; 83690; 86704; 86706; 86803; 87340; 93005; 94640; 96361; 96365; 96366; 96375; 99222; 99223; 99232; 99233; 99239; 99253; 99285; NC; 76700; 81003; 81015; 81373; 82140; 82150; 83735; 83880; 84157; 84443; 84484; 85014; 85025; 85610; 85730; 87070; 87075; 87205; 87522; 89051; 93010; J0456; J0696; J1644; J1941; J2930; J3475; J3490; J7512; J7620

== ENCOUNTER 2018-08-16 10:27 | Emergency (ER) | payer MEDICARE, MEDICAID, SELFPAY ==
[2018-08-16] VITALS (38 sets, daily range): BP systolic 115–137; BP diastolic 73–108; PULSE 96–111; RESP 8–25; TEMP 37.2; O2SAT 92–99
--- NOTE | 2018-08-16 10:36 | NUR.NOTE ---
pt presents c/o 03/09 LLQ abdominal pain that started yesterday 1600. pt had similar symptoms a month ago and was seen in our ER and admitted to [facility]
--- NOTE | 2018-08-16 11:01 | DI.CT_ITS ---
SYMPTOM/DIAGNOSIS: LLQ ABD PAIN, H/O ASCITES ABDOMEN AND PELVIC CT: The study was carried out with an intravenous infusion of 100 cc's of Omnipaque 350. There are multiple lung cysts in the lung bases. There is no evidence of a pleural effusion. The heart does not appear enlarged. An enlarged fatty liver is demonstrated. There is considerable dilatation of the gallbladder and small gallstones are noted in the fundus. There is no evidence of biliary obstruction. The pancreas and spleen appear intact. The adrenals are normal. The kidneys are intact. There is no evidence of hydronephrosis, a cyst or right or left renal mass. The adrenals appear unremarkable. A sizable quantity of ascitic fluid is noted in the abdomen and pelvis. There is no evidence of bowel obstruction. No focal bowel wall abnormality is appreciated. There is nothing to suggest an acute appendix. The bladder appears intact. The reproductive organs as visualized appear intact. There are atherosclerotic changes involving the aorta without evidence of an aneurysm. Mild degenerative changes involving the spine are identified. SUMMARY: An enlarged fatty liver is noted. There is considerable dilatation of the gallbladder which contains stones. There is no evidence of ductal dilatation and no specific evidence of acute cholecystis. A large quantity of ascitic fluid is noted in the abdomen and pelvis. There is no evidence of diverticulitis or an acute appendix. When compared with the previous study of 07/20/18, there has been a decrease in the quantity of ascitic fluid in the abdomen and pelvis.
--- NOTE | 2018-08-16 11:06 | ED.GENADUL_ITS ---
Discharge Plan Disposition Patient Disposition: HOME Condition: Improving Discharge Details Chief Complaint: Abd Prob Clinical Impression: Chronic abdominal pain, Cirrhosis with alcoholism, Hypokalemia, Thrombocytopenia Reason For Visit: JORGE Primary Care Provider: Sandra Mejía ED Provider: Katy Castellano Home Meds and New Rx's Prescriptions: New oxycodone 5 mg tablet 5 mg PO Q6H PRN PRN (Reason: pain) Qty: 3 RF: 0 Continued albuterol sulfate 90 mcg/actuation HFA aerosol inhaler 1 puff IH Q4H PRN (Reason: shortness of breath or wheezing) Qty: 18 RF: 12 spironolactone 50 mg tablet 100 mg PO DAILY Qty: 60 RF: 3 pantoprazole 40 mg tablet,delayed release (DR/EC) 40 mg PO DAILY@0730 Qty: 30 RF: 3 propranolol 10 mg tablet 10 mg PO BID Qty: 60 RF: 6 oxycodone 5 mg Tablet 5 mg PO Q6H PRN PRNQty: 21 RF: 0 Discharge Instructions Instructions: Cirrhosis (ED), Hypokalemia (ED), Chronic Pain (ED), Thrombocytopenia (ED) Additional Instructions: Your platelet levels have been chronically low and were 88 today. Follow-up with your scheduled appointment with your primary care doctor on Wednesday for reevaluation and recheck of your potassium and platelet levels. Restart all of your medications today. Your spironolactone will likely help to increase your potassium levels. Follow-up with your scheduled appointment with gastroenterology at [facility] next month. Return immediately to the emergency department any worsening or new concerning symptoms. Discharge Data Discharge Physician: Katy Castellano Medical Decision Making 58yo F with a history of chronic alcohol abuse, hepatitis C, cirrhosis, and COPD who presents for left lower quadrant abdominal pain and abdominal distention since yesterday. Patient was admitted here last month for ascites and cirrhosis but was found unlikely to have SBP as she had no fever, negative fluid cultures, and only a small amount of fluid ~400cc able to be drained on paracentesis. She completed a 5-day course of ceftriaxone at that time. Heart rate mildly elevated. Remainder vitals within normal limits. Patient appears uncomfortable. Her abdomen is soft but moderately distended with diffuse tenderness, worse in left lower quadrant. With patient's history, will place an IV, bolus IV fluids, labs, urinalysis, CT abdomen and pelvis. 1310 -- Pt denies any improvement in pain after dilaudid. She appears more comfortable. Labs reviewed and note a normal white blood cell count, hemoglobin. Platelets 8 6. She has been as low as 93 last month. No complaint or signs of bleeding. Potassium 3.1. Calcium 7.6, she had been 7.3 last month. No significant change in liver enzymes. Troponin negative. Lipase negative. Urinalysis unremarkable. Alcohol level 75. Patient states she has not not been taking her spironolactone, propanolol, or Protonix 1400 -- CT reviewed and ascites appears improved, no other acute abdominal findings on CT. Case reviewed with surgery and likely patient has chronic pain associated with her cirrhosis. As she has no fever, no altered mental status, normal white bl ood cell count and no acute significant findings on CT, I do not see an indication for admission and patient is agreeable. Patient has an appointment with gastroenterology at [facility] next month. Pt states does not have a phone or a car to arrange for transportation to her GI appointment next month. Discussed with care management who discussed with patient at bedside and she has Medicaid and can use [facility]. Patient also has an appointment with her primary care doctor this Wednesday. She is instructed to follow-up with his appointment for reevaluation and to return here immediately if worse. She is instructed to take all of her medications as directed. Discussed that her low potassium may improve when she restarts her spironolactone. She is instructed to have a recheck of her potassium and platelet level with her PCP. Pt is speaking in full sentences and appears comfortable but occasionally has twinges of abdominal pain in which HR 100-110s. We will send home with 3 tabs of oxycodone. She is instructed to return here immediately if worse. Medical Records Medical records reviewed: Yes I reviewed the patient's medical records. Imaging Data Radiologic Study: Radiologist's impression: ABDOMEN AND PELVIC CT: The study was carried out with an intravenous infusion of 100 cc's of Omnipaque 350. There are multiple lung cysts in the lung bases. There is no evidence of a pleural effusion. The heart does not appear enlarged. An enlarged fatty liver is demonstrated. There is considerable dilatation of the gallbladder and small gallstones are noted in the fundus. There is no evidence of biliary o bstruction. The pancreas and spleen appear intact. The adrenals are normal. The kidneys are intact. There is no evidence of hydronephrosis, a cyst or right or left renal mass. The adrenals appear unremarkable. A sizable quantity of ascitic fluid is noted in the abdomen and pelvis. There is no evidence of bowel obstruction. No focal bowel wall abnormality is appreciated. There is nothing to suggest an acute appendix. The bladder appears intact. The reproductive organs as visualized appear intact. There are atherosclerotic changes involving the aorta without evidence of an aneurysm. Mild degenerative changes involving the spine are identified. SUMMARY: An enlarged fatty liver is noted. There is considerable dilatation of the gallbladder which contains stones. There is no evidence of ductal dilatation and no specific evidence of acute cholecystis. A large quantity of ascitic fluid is noted in the abdomen and pelvis. There is no evidence of diverticulitis or an acute appendix. When compared with the previous study of 07/20/18, there has been a decrease in the quantity of ascitic fluid in the abdomen and pelvis. Lab Data Lab results reviewed: Yes I reviewed the patient's lab results. Laboratory Tests Range/Units 08/16/18 08/16/18 08/16/18 11:20 11:20 11:20 WBC (4.4-10.8) k/cumm 5.96 RBC (4.00-5.20) m/cumm 3.43 L Hgb (12.0-15.5) g/dL 12.6 Hct (36.0-46.0) % 37.2 MCV (80-95) fL 108.5 H MCH (27.0-33.0) pg 36.7 H MCHC (32.0-36.0) g/dL 33.9 RDW (11.7-14.6) % 17.0 H Plt Count (130-400) x1000/uL 86 L MPV (8.0-11.0) fL 9.5 Immature Gran % 0.0 Neutrophils % 47.0 Lymphocytes % 37.8 Monocytes % 13.1 Eosinophils % 1.3 Basophils % 0.8 Absolute Neutrophils (1.2-6.7) k/cumm 2.80 Absolute Lymphocytes (1.2-3.4) k/cumm 2.25 Absolute Monocytes (0.11-0.7) k/cumm 0.78 H Absolute Eosinophils (0.0-0.7) k/cumm 0.08 Absolute Basophils (0.0-0.2) k/cumm 0.05 Differential Comment Diff reviewed RBC Morphology See below Polychromasia Present Macrocytosis 2+ Target Cells 2+ Sodium (136-145) mmol/L 136 Potassium (3.5-5.1) mmol/L 3.1 L Chloride (98-107) mmol/L 102 Carbon Dioxide (21.0-32.0) mmol/L 23.1 Anion Gap (3-11) mmol/L 10.9 BUN (7-18) mg/dL 3 L Creatinine (0.55-1.02) mg/dL 0.50 L Estimated GFR/1.73 m2 (mL/min/1.73m2) >= 60.00 Glucose (70-100) mg/dL 115 H Calcium (8.5-10.1) mg/dL 7.7 L Magnesium (1.8-2.4) mg/dL 1.7 L Total Bilirubin (0.2-1.0) mg/dL 2.2 H AST (15-37) U/L 166 H ALT (12-78) U/L 88 H Alkaline Phosphatase (46-116) U/L 230 H Troponin I (0.00-0.06) ng/mL 0.02 Total Protein (6.4-8.2) g/dL 7.6 Albumin (3.4-5.0) g/dL 2.2 L Lipase (73-393) U/L 167 Urine Color (Yellow) Urine Clarity Urine pH (5-8) Ur Specific [place] (1.005-1.025) Urine Protein (Negative) mg/dL Urine Ketones (Negative) mg/dL Urine Blood (Negative) Urine Nitrite (Negative) Urine Bilirubin (Negative) Urine Urobilinogen (Up TO 0.2) EU/dL Ur Leukocyte Esterase (Negative) Urine Glucose (Negative) mg/dL Ethyl Alcohol (<3) mg/dL 75.9 Range/Units 08/16/18 12:43 WBC (4.4-10.8) k/cumm RBC (4.00-5.20) m/cumm Hgb (12.0-15.5) g/dL Hct (36.0-46.0) % MCV (80-95) fL MCH (27.0-33.0) pg MCHC (32.0-36.0) g/dL RDW (11.7-14.6) % Plt Count (130-400) x1000/uL MPV (8.0-11.0) fL Immature Gran % Neutrophils % Lymphocytes % Monocytes % Eosinophils % Basophils % Absolute Neutrophils (1.2-6.7) k/cumm Absolute Lymphocytes (1.2-3.4) k/cumm Absolute Monocytes (0.11-0.7) k/cumm Absolute Eosinophils (0.0-0.7) k/cumm Absolute Basophils (0.0-0.2) k/cumm Differential Comment RBC Morphology Polychromasia Macrocytosis Target Cells Sodium (136-145) mmol/L Potassium (3.5-5.1) mmol/L Chloride (98-107) mmol/L Carbon Dioxide (21.0-32.0) mmol/L Anion Gap (3-11) mmol/L BUN (7-18) mg/dL Creatinine (0.55-1.02) mg/dL Estimated GFR/1.73 m2 (mL/min/1.73m2) Glucose (70-100) mg/dL Calcium (8.5-10.1) mg/dL Magnesium (1.8-2.4) mg/dL Total Bilirubin (0.2-1.0) mg/dL AST (15-37) U/L ALT (12-78) U/L Alkaline Phosphatase (46-116) U/L Troponin I (0.00-0.06) ng/mL Total Protein (6.4-8.2) g/dL Albumin (3.4-5.0) g/dL Lipase (73-393) U/L Urine Color (Yellow) Yellow Urine Clarity Sl cloudy Urine pH (5-8) 6.0 Ur Specific [place] (1.005-1.025) 1.010 Urine Protein (Negative) mg/dL Negative Urine Ketones (Negative) mg/dL Trace H Urine Blood (Negative) Negative Urine Nitrite (Negative) Negative Urine Bilirubin (Negative) Negative Urine Urobilinogen (Up TO 0.2) EU/dL 1.0 H Ur Leukocyte Esterase (Negative) Negative Urine Glucose (Negative) mg/dL Negative Ethyl Alcohol (<3) mg/dL ECG Data Attestation: I personally reviewed and interpreted this ECG (s) as follows: Interpretation: Rate of 101, sinus tachycardia, no acute ST elevation or depression. QTc 495. QRS 90. HPI General Mode of arrival: EMS . Date/Time Provider Initiated Documentation: 08/16/18 10:34 . Limitations to Documentation: no limitations . Information obtained by: patient . HPI Narrative: Patient is a 58-year-old female with history of hepatitis C, COPD, cirrhosis, alcohol abuse who presents with left lower quadrant abdominal pain and increased abdominal distention since yesterday. Patient denies any fever or vomiting. She states she last drank a bottle of wine 2 days ago, none yesterday and had a small glass of wine this morning. Related Data Home Medications Medication Instructions Recorded Confirmed oxycodone 5 mg PO Q6H PRN PRN #21 tab 07/27/18 08/16/18 albuterol sulfate HFA 90 1 puff IH Q4H PRN #18 gm 08/01/18 08/16/18 mcg/actuation aerosol inhaler pantoprazole 40 mg tablet,delayed 40 mg PO DAILY@0730 #30 tab 08/01/18 08/16/18 release spironolactone 50 mg tablet 100 mg PO DAILY #60 tab 08/01/18 08/16/18 propranolol 10 mg tablet 10 mg PO BID #60 tab 08/08/18 08/16/18 oxycodone 5 mg PO Q6H PRN PRN #3 tab 08/16/18 Previous Rx's Medication Instructions Recorded oxycodone 5 mg PO Q6H PRN PRN #21 tab 07/27/18 albuterol sulfate HFA 90 1 puff IH Q4H PRN #18 gm 08/01/18 mcg/actuation aerosol inhaler pantoprazole 40 mg tablet,delayed 40 mg PO DAILY@0730 #30 tab 08/01/18 release spironolactone 50 mg tablet 100 mg PO DAILY #60 tab 08/01/18 propranolol 10 mg tablet 10 mg PO BID #60 tab 08/08/18 oxycodone 5 mg PO Q6H PRN PRN #3 tab 08/16/18 Allergies Allergy/AdvReac Type Severity Reaction Status Date / Time No Known Allergies Allergy Verified 08/16/18 11:47 General RK: 3 Review of Systems Review of Systems All systems reviewed & are unremarkable except as noted in HPI and below Constitutional Reports as per HPI, Denies chills and Denies fever(s) Eyes Denies blurry vision ENT Denies dizziness, Denies sore throat and Denies throat swelling Cardiovascular Denies chest pain and Denies dyspnea Respiratory Denies cough and Denies dyspnea Gastrointestinal Reports abdominal pain, Denies diarrhea and Denies vomiting Genitourinary Denies hematuria and Denies dysuria Musculoskeletal Denies back pain and Denies numbness Integumentary/Breasts Denies lesions and Denies rash Neurologic Denies dizziness, Denies focal weakness and Denies numbness Allergic/Immunologic Denies throat swelling [facility] Medical History Ascites (Acute) Cirrhosis with alcoholism (Acute) Alcohol abuse (Chronic) COPD (chronic obstructive pulmonary disease) (Chronic) Hepatitis C (Chronic) Tobacco abuse (Chronic) Surgical History History of bilateral tubal ligation (Acute) Family History Sister Anal cancer Other Heart disease Hypertension Social History Smoking/Tobacco Use Status: Current every day Tobacco Type: cigarettes Tobacco: How many years used: 44 Quit status: considering quitting Counseling given: provider counseling and support medications Alcohol Intake: current Alcohol Intake frequency: 0-2 drinks per day Alcohol type: wine Drug use: Current Sobriety Substance use type: does not use Housing: apartment Do you feel safe at home: Yes Do you feel safe in your relationship?: Yes Exam Const General: in distress (in pain) moderate and ill appearing Orientation: alert and awake HENMT Head: normal to inspection Ears: hearing grossly normal bilaterally and external ears normal General nose exam: external nose normal Face and sinus: normal facial exam Eyes General: appearance normal, both eyes and all related structures Eyelids: eyelids normal EOM: EOM intact bilaterally Neck Neck: normal visual inspection Lymphatic: no lymphadenopathy noted Chest Chest: normal inspection of the chest Resp Effort & Inspection: normal respiratory effort and able to speak in complete sentences Auscultation: clear to auscultation bilaterally Cardio Rate: tachycardic Rhythm: regular rhythm GI Inspection: normal to inspection, distended (moderate) and other Palpation: soft, not firm, no guarding, no hepatosplenomegaly, no masses and tender (diffuse) Auscultation: normal bowel sounds Skin General skin exam: no rashes or lesions noted Neuro General: alert and awake Cognition: normal cognition Speech: speech normal Gait: normal gait Motor: muscle tone normal throughout Sensory Exam: no sensory deficits noted Extrem General: normal to inspection, full ROM, normal capillary refill and no edema Psych Appearance: grossly normal Mental Status: mental status grossly normal Speech and Movement: speech and movement normal Affect: normal affect Thought Process: normal
[2018-08-16] MEDS: HYDROmorphone 2 MG/ML VIAL 1 MG IVP (11:38)
--- NOTE | 2018-08-16 11:41 | NUR.NOTE ---
pt originally stated that she developed 10/10 pain LLQ yesterday however later states that pain started a week ago and then proceded to change her story several times. pt is poor historian in regards to consistent story. pt states that she was seen in our Er and admitted for similar problem 3 weeks ago
[2018-08-16 11:43] LABS: Absolute Basophil Count 0.05 k/cumm (0.0-0.2); Absolute Eosinophil Count 0.08 k/cumm (0.0-0.7); Absolute Lymphocyte Count 2.25 k/cumm (1.2-3.4); Absolute Monocyte Count 0.78 k/cumm (0.11-0.7); Basophils % 0.8; Eosinophils % 1.3; HCT 37.2 % (36.0-46.0); HGB 12.6 g/dL (12.0-15.5); Lymphocytes % 37.8; Mean Corp. HGB Concentration 33.9 g/dL (32.0-36.0); Mean Corpuscular Hemoglobin 36.7 pg (27.0-33.0); Mean Corpuscular Volume 108.5 fL (80-95); Mean Platelet Volume 9.5 fL (8.0-11.0); Monocytes % 13.1; RBC 3.43 m/cumm (4.00-5.20); White Blood Cell Count 5.96 k/cumm (4.4-10.8)
[2018-08-16 11:52] LABS: ALT 88 U/L (12-78); AST 166 U/L (15-37); Albumin 2.2 g/dL (3.4-5.0); Alkaline Phosphatase 230 U/L (46-116); Anion Gap 10.9 mmol/L (3-11); BUN 3 mg/dL (7-18); Bilirubin, Total 2.2 mg/dL (0.2-1.0); CO2 23.1 mmol/L (21.0-32.0); Calcium 7.7 mg/dL (8.5-10.1); Chloride 102 mmol/L (98-107); Glucose 115 mg/dL (70-100); Lipase 167 U/L (73-393); Magnesium 1.7 mg/dL (1.8-2.4); Potassium 3.1 mmol/L (3.5-5.1); Sodium 136 mmol/L (136-145); Total Protein 7.6 g/dL (6.4-8.2); Troponin I 0.02 ng/mL (0.00-0.06)
[2018-08-16 12:08] LABS: Platelet Count 86 x1000/uL (130-400)
[2018-08-16 12:09] LABS: Diff Comment Diff Reviewed; Macrocytosis 2+; Polychromasia Present; Target Cells 2+
[2018-08-16 12:49] LABS: Bilirubin Negative (Negative); Blood Negative (Negative); Clarity Sl Cloudy; Glucose Negative (Negative); Ketones Trace mg/dL (Negative); Leukocyte Esterase Negative (Negative); Nitrite Negative (Negative)
[2018-08-16 12:51] LABS: ETHANOL BLOOD 75.9 mg/dL (<3)
[2018-08-16] MEDS: Omnipaque 350 MG/ML 100 ML BTL IJ (12:56)
[2018-08-16] MEDS: Potassium Chloride 20 MEQ TABCR 40 MEQ PO (13:08)
[2018-08-16] MEDS: oxyCODONE 5 MG TAB PO (14:35)
--- NOTE | 2018-08-16 14:45 | PDOC.ERCMPRO ---
Care Management Progress Note 08/16-Dr. Castellano requested assistance with Transportation for Lisseth. Lisseth states she has a couple f/u appts, medical, in the next month or so and no way to get to them. Met with Lisseth. Lisseth has [place] [employer]. Discussed that [facility] would transport her to and from her medical appts. Lisseth states that she knows that but she does not like to ride with strangers. At this time, [facility] is the only transportation paid for by [place] [employer]. This CM gave Lisseth [facility]'s phone number and Lisseth states she will reach out to [facility] to discuss transportation. Today, Lisseth states she is going to call [facility] [employer] and have them give her a ride. Dr. Castellano aware of the above.
--- NOTE | 2018-08-16 14:49 | CMPROGNOTE_ITS ---
Care Management Progress Note 08/16-Dr. Castellano requested assistance with Transportation for Lisseth. Lisseth states she has a couple f/u appts, medical, in the next month or so and no way to get to them. Met with Lisseth. Lisseth has [place] [employer]. Discussed that [facility] would transport her to and from her medical appts. Lisseth states that she knows that but she does not like to ride with strangers. At this time, [facility] is the only transportation paid for by [place] [employer]. This CM gave Lisseth [facility] phone number and Lisseth states she will reach out to [facility] to discuss transportation. Today, Lisseth states she is going to call [facility] and have them give her a ride. Dr. Castellano aware of the above.
== END 2018-08-16 14:48 | disposition home or self-care (01) ==
PROVIDERS: Emergency Provider Physician Assistant; PCP Nurse Practitioner
DX: R10.30 Lower abdominal pain, unspecified (principal); E87.6 Hypokalemia; K70.30 Alcoholic cirrhosis of liver without ascites; D69.6 Thrombocytopenia, unspecified; J44.9 Chronic obstructive pulmonary disease, unspecified; F17.210 Nicotine dependence, cigarettes, uncomplicated
CPT/HCPCS: 36415; 80053; 83690; 96374; 96375; 99285; 74177; 80320; 81003; 83735; 84484; 85025; 99284; J3490

== ENCOUNTER 2018-08-22 15:39 | Outpatient (REF) | payer MEDICARE, MEDICAID, SELFPAY ==
[2018-08-22 20:00] LABS: HCT 38.3 % (36.0-46.0); HGB 13.2 g/dL (12.0-15.5); Mean Corp. HGB Concentration 34.5 g/dL (32.0-36.0); Mean Corpuscular Hemoglobin 37.7 pg (27.0-33.0); Mean Corpuscular Volume 109.4 fL (80-95); Mean Platelet Volume 9.8 fL (8.0-11.0); RBC Distribution Width 17.7 % (11.7-14.6); White Blood Cell Count 5.81 k/cumm (4.4-10.8)
[2018-08-22 20:03] LABS: ALT 60 U/L (12-78); AST 107 U/L (15-37); Albumin 2.2 g/dL (3.4-5.0); Alkaline Phosphatase 185 U/L (46-116); Anion Gap 8.8 mmol/L (3-11); BUN 5 mg/dL (7-18); Bilirubin, Total 2.4 mg/dL (0.2-1.0); CO2 24.2 mmol/L (21.0-32.0); CREATININE 0.76 mg/dL (0.55-1.02); Calcium 8.2 mg/dL (8.5-10.1); Chloride 104 mmol/L (98-107); Glucose 86 mg/dL (70-100); Potassium 3.9 mmol/L (3.5-5.1); Sodium 137 mmol/L (136-145); Total Protein 7.5 g/dL (6.4-8.2)
[2018-08-22 20:48] LABS: Platelet Count 97 x1000/uL (130-400)
== END 2018-08-22 15:59 ==
LOC: LBN 15:39
PROVIDERS: PCP Nurse Practitioner; Visit Provider Nurse Practitioner
DX: D69.6 Thrombocytopenia, unspecified (principal); R79.9 Abnormal finding of blood chemistry, unspecified; K74.60 Unspecified cirrhosis of liver; B18.2 Chronic viral hepatitis C
CPT/HCPCS: 80053; 85027

== ENCOUNTER 2018-09-17 14:01 | Emergency (ER) | payer MEDICARE, MEDICAID, SELFPAY ==
[2018-09-17] VITALS (61 sets, daily range): BP systolic 89–134; BP diastolic 52–80; PULSE 103–126; RESP 16; TEMP 36.8–37.1; O2SAT 88–100
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
[2018-09-17] MEDS: Ondansetron 4 MG/2 ML VIAL IVP (14:19)
[2018-09-17] MEDS: Pantoprazole 40 MG VIAL 80 MG IVP (14:20)
[2018-09-17] MEDS: Normal Saline 500 ML IV (14:21)
[2018-09-17 14:26] LABS: Abs Immature Grans 0.15 k/cumm (0.0-0.09); Absolute Basophil Count 0.06 k/cumm (0.0-0.2); Absolute Eosinophil Count 0.01 k/cumm (0.0-0.7); Absolute Lymphocyte Count 2.75 k/cumm (1.2-3.4); Absolute Monocyte Count 0.88 k/cumm (0.11-0.7); Absolute Neutrophil Count 6.41 k/cumm (1.2-6.7); Basophils % 0.6; Eosinophils % 0.1; HCT 25.2 % (36.0-46.0); HGB 8.3 g/dL (12.0-15.5); Immature Grans % 1.5; Lymphocytes % 26.8; Mean Corp. HGB Concentration 32.9 g/dL (32.0-36.0); Mean Corpuscular Hemoglobin 38.6 pg (27.0-33.0); Mean Corpuscular Volume 117.2 fL (80-95); Mean Platelet Volume 9.7 fL (8.0-11.0); Monocytes % 8.6; Neutrophils % 62.4; Platelet Count 113 x1000/uL (130-400); RBC 2.15 m/cumm (4.00-5.20); RBC Distribution Width 16.7 % (11.7-14.6); White Blood Cell Count 10.26 k/cumm (4.4-10.8)
[2018-09-17 14:38] LABS: ALT 52 U/L (12-78); AST 96 U/L (15-37); Albumin 2.4 g/dL (3.4-5.0); Alkaline Phosphatase 147 U/L (46-116); Anion Gap 13.2 mmol/L (3-11); BUN 22 mg/dL (7-18); Bilirubin, Total 1.8 mg/dL (0.2-1.0); CO2 23.8 mmol/L (21.0-32.0); CREATININE 0.98 mg/dL (0.55-1.02); Calcium 7.9 mg/dL (8.5-10.1); Chloride 100 mmol/L (98-107); Estimated GFR 57.89 (mL/min/1.73m2); Glucose 121 mg/dL (70-100); Lipase 207 U/L (73-393); Magnesium 1.4 mg/dL (1.8-2.4); Potassium 4.5 mmol/L (3.5-5.1); Sodium 137 mmol/L (136-145); Total Protein 7.5 g/dL (6.4-8.2)
[2018-09-17 14:41] LABS: INR 1.5 (0.9-1.1); PTT Activated 19.8 sec (21.0-31.4); Prothrombin Time 15.4 sec (9.3-11.0)
[2018-09-17 14:45] LABS: Diff Comment RBC Morph Reviewed
[2018-09-17 14:46] LABS: Macrocytosis 2+; Target Cells 2+
[2018-09-17 15:03] LABS: ETHANOL BLOOD < 3.0 mg/dL (<3)
[2018-09-17] MEDS: Omnipaque 350 MG/ML 100 ML BTL IJ (15:52)
--- NOTE | 2018-09-17 15:53 | DI.CT_ITS ---
SYMPTOMS/DIAGNOSIS: ABDOMINAL PAIN, GI BLEED, BLACK STOOL, DARK EMESIS CT OF THE ABDOMEN AND PELVIS: Comparison is made with July,. Images were performed from the lung bases through the ischial tuberosities after IV and without oral contrast. Blebs are again noted at the lung bases. No pleural or pericardial effusions are seen. There is a small amount of ascites, decreasing when compared with the previous exam. The liver again has a cirrhotic appearance. Gallstones are again noted. The gallbladder does not appear abnormally distended on the current exam. There is mild diffuse colonic wall thickening. There is a mildly dilated loop of bowel in the left lower quadrant. There is prominent diverticulosis but no evidence of diverticulitis. There are no findings to suggest obstruction. The bladder, uterus and ovaries are unremarkable. IMPRESSION: Mild ascites and cirrhotic liver. Mild colonic wall thickening. Diverticulosis without evidence of diverticulitis. No evidence of obstruction.
[2018-09-17] MEDS: cefTRIAXone 1 GM/50 ML BAG IVPB (16:33)
--- NOTE | 2018-09-17 16:47 | DI.VRAD_ITS ---
EXAM: CT Abdomen and Pelvis With Contrast EXAM DATE/TIME: 09/17/2018 2:23 PM CLINICAL HISTORY: 58 years old, female; Abdominal pain; Other: Pain entire abdomen. ; Patient HX: Patient sts pain entire abdomen, noticed black stool yesterday morning. TECHNIQUE: Imaging protocol: Axial computed tomography images of the abdomen and pelvis with intravenous contrast. Coronal and sagittal reformatted images were created and reviewed. Contrast material: OMNIPAQUE 350; Contrast volume: 97 ml; Contrast route: IV; COMPARISON: CT ABDOMEN PELVIS W 08/16/2018 12:12 PM FINDINGS: Bilateral blebs or lung cysts at the lung bases unchanged from the prior exam. Cholelithiasis. Diffuse thickening of the colon wall consistent with a diffuse colitis of uncertain etiology. Mild abdominal and pelvic free fluid. Mild prominence to a loop of small bowel in the left lower quadrant more suggestive of a focal ileus than bowel obstruction. No obstructive uropathy. IMPRESSION: 1. Findings suggesting a diffuse colitis of uncertain etiology. 2. Probable mild focal small bowel ileus in the left lower quadrant. 3. Additional incidental findings. Dictated and Authenticated by: Octavio Carballo MD. Ordering:TRISTEN Siddiqi MD
[2018-09-17] MEDS: MAGNESIUM SULFATE 8.12 MEQ, MULTIVITAMIN 10 ML, THIAMINE 100 MG, FOLIC ACID 1 MG in Nor... 168.867 MG IV (18:20)
--- NOTE | 2018-09-17 19:55 | NUR.NOTE ---
TAR in [facility] was not working properly several nurses tryed to chart when the blood ended but were unable to in the TAR. first blood ended 2 hrs after start second blood ended 1.8 hrs after start pleas see vitals records fro vitals
== END 2018-09-17 20:18 | disposition short-term general hospital (02) ==
PROVIDERS: Emergency Provider Nurse Practitioner Family; PCP Nurse Practitioner
DX: K92.2 Gastrointestinal hemorrhage, unspecified (principal); E83.42 Hypomagnesemia; I85.01 Esophageal varices with bleeding; F11.10 Opioid abuse, uncomplicated; K92.1 Melena; D62 Acute posthemorrhagic anemia; K52.9 Noninfective gastroenteritis and colitis, unspecified; K70.31 Alcoholic cirrhosis of liver with ascites; J44.9 Chronic obstructive pulmonary disease, unspecified; F17.210 Nicotine dependence, cigarettes, uncomplicated
CPT/HCPCS: 36415; 36430; 80053; 83690; 86850; 86900; 86901; 86920; 96365; 96366; 96367; 96368; 96374; 96375; 99285; 74177; 80320; 83735; 85025; 85610; 85730; J0696; J2354; J2405; J3490; P9016

== ENCOUNTER 2018-10-05 16:34 | Outpatient (REF) | payer MEDICARE, MEDICAID, SELFPAY ==
[2018-10-05 20:21] LABS: HCT 32.5 % (36.0-46.0); HGB 10.2 g/dL (12.0-15.5); Mean Corp. HGB Concentration 31.4 g/dL (32.0-36.0); Mean Corpuscular Hemoglobin 34.6 pg (27.0-33.0); Mean Corpuscular Volume 110.2 fL (80-95); Mean Platelet Volume 9.6 fL (8.0-11.0); Platelet Count 130 x1000/uL (130-400); RBC 2.95 m/cumm (4.00-5.20); RBC Distribution Width 19.7 % (11.7-14.6); White Blood Cell Count 4.85 k/cumm (4.4-10.8)
[2018-10-05 20:22] LABS: ALT 50 U/L (12-78); AST 94 U/L (15-37); Albumin 2.4 g/dL (3.4-5.0); Alkaline Phosphatase 179 U/L (46-116); Anion Gap 6.9 mmol/L (3-11); BUN 9 mg/dL (7-18); Bilirubin, Total 1.9 mg/dL (0.2-1.0); CO2 27.1 mmol/L (21.0-32.0); CREATININE 0.74 mg/dL (0.55-1.02); Calcium 8.2 mg/dL (8.5-10.1); Chloride 106 mmol/L (98-107); Glucose 127 mg/dL (70-100); Potassium 3.5 mmol/L (3.5-5.1); Sodium 140 mmol/L (136-145); Total Protein 7.2 g/dL (6.4-8.2)
== END 2018-10-05 16:54 ==
LOC: LBN 16:34
PROVIDERS: PCP Nurse Practitioner; Visit Provider Nurse Practitioner
DX: B18.2 Chronic viral hepatitis C (principal); F10.10 Alcohol abuse, uncomplicated; K71.51 Toxic liver disease with chronic active hepatitis with ascites; K74.60 Unspecified cirrhosis of liver
CPT/HCPCS: 80053; 85027

== ENCOUNTER 2018-10-20 06:11 | Emergency (ER) | payer MEDICARE, MEDICAID, SELFPAY ==
[2018-10-20] VITALS (55 sets, daily range): BP systolic 89–121; BP diastolic 53–79; PULSE 100–133; RESP 13–31; TEMP 36.5–37.1; O2SAT 89–100
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
[2018-10-20] MEDS: Lactated Ringers 1,000 ML 1000 ML IV ×2 (06:48→09:55)
[2018-10-20] MEDS: Pantoprazole 40 MG VIAL 80 MG IVP (06:57)
[2018-10-20 07:14] LABS: Abs Immature Grans 0.02 k/cumm (0.0-0.09); Absolute Basophil Count 0.07 k/cumm (0.0-0.2); Absolute Eosinophil Count 0.02 k/cumm (0.0-0.7); Absolute Lymphocyte Count 2.05 k/cumm (1.2-3.4); Absolute Neutrophil Count 4.24 k/cumm (1.2-6.7); Eosinophils % 0.3; HCT 25.8 % (36.0-46.0); HGB 7.9 g/dL (12.0-15.5); Immature Grans % 0.3; Lymphocytes % 28.5; Mean Corp. HGB Concentration 30.6 g/dL (32.0-36.0); Mean Corpuscular Hemoglobin 35.1 pg (27.0-33.0); Mean Platelet Volume 9.8 fL (8.0-11.0); Monocytes % 11.1; Neutrophils % 58.8; Platelet Count 119 x1000/uL (130-400); RBC 2.25 m/cumm (4.00-5.20); RBC Distribution Width 17.6 % (11.7-14.6)
[2018-10-20 07:29] LABS: INR 1.4 (0.9-1.1); PTT Activated 20.3 sec (21.0-31.4); Prothrombin Time 14.2 sec (9.3-11.0)
[2018-10-20 07:31] LABS: Mean Corpuscular Volume 114.7 fL (80-95)
[2018-10-20 07:36] LABS: ALT 42 U/L (12-78); AST 86 U/L (15-37); Albumin 2.4 g/dL (3.4-5.0); Alkaline Phosphatase 119 U/L (46-116); Anion Gap 15.2 mmol/L (3-11); BUN 24 mg/dL (7-18); CO2 21.8 mmol/L (21.0-32.0); CREATININE 0.73 mg/dL (0.55-1.02); Calcium 8.1 mg/dL (8.5-10.1); Chloride 102 mmol/L (98-107); Glucose 96 mg/dL (70-100); Magnesium 1.5 mg/dL (1.8-2.4); Potassium 3.4 mmol/L (3.5-5.1); Sodium 139 mmol/L (136-145); Total Protein 7.3 g/dL (6.4-8.2); Troponin I 0.06 ng/mL (0.00-0.06)
[2018-10-20 07:49] LABS: Ammonia 29 umol/L (11-32); ETHANOL BLOOD 13.1 mg/dL (<3)
[2018-10-20 08:11] LABS: Lactate-non-spesis 4.3 mmol/l (0.6-1.4)
[2018-10-20] MEDS: Omnipaque 350 MG/ML 100 ML BTL IJ (08:45)
--- NOTE | 2018-10-20 08:45 | DI.CT_ITS ---
SYMPTOM/DIAGNOSIS: ABD PAIN ABDOMEN AND PELVIC CT: The study was carried out with an intravenous administration of 100 cc's of Omnipaque 350 and is compared with the prior study of 09/17/18. Again noted are the pulmonary cysts in the lung bases, unchanged. Fatty infiltration is noted and the liver is enlarged. There is some questionable slight nodularity raising the possibility of cirrhosis. Cholelithiasis is demonstrated. The pancreas is normal. The spleen is normal. Small radiolucencies in the left kidney likely represent cysts. The right kidney is unremarkable. The adrenals are normal. When compared with the previous examination, again noted is the diffuse bowel wall thickening involving primarily the right colon and proximal transverse colon. There has been a decrease in the quantity of free fluid in the abdomen and pelvis. Note is made of diverticulosis without evidence of diverticulitis. The bladder is intact. The reproductive organs as visualized appear intact. There is no evidence of an aortic aneurysm. The bony structures are intact. SUMMARY: When compared with the previous study, again noted are findings consistent with colitis. There has been some decrease in the quantity of free fluid in the abdomen and pelvis. The liver is enlarged and fatty infiltration is seen and there is evidence of cholelithiasis without findings to suggest acute cholecystitis or ductal dilatation.
--- NOTE | 2018-10-20 12:06 | NUR.NOTE ---
ambulance will continue blood transfusion during ride to [facility].Nursing Note:
== END 2018-10-20 12:05 | disposition short-term general hospital (02) ==
PROVIDERS: Emergency Medicine; Emergency Provider Physician Assistant; PCP Nurse Practitioner
DX: K92.2 Gastrointestinal hemorrhage, unspecified (principal); F10.10 Alcohol abuse, uncomplicated; R00.0 Tachycardia, unspecified; K64.9 Unspecified hemorrhoids; K70.30 Alcoholic cirrhosis of liver without ascites; J44.9 Chronic obstructive pulmonary disease, unspecified; B18.2 Chronic viral hepatitis C
CPT/HCPCS: 36415; 36430; 80053; 86850; 86900; 86901; 86920; 93005; 96361; 96365; 96366; 96375; 99285; 74177; 80320; 82140; 83605; 83735; 84484; 85025; 85610; 85730; 93010; J2354; J3490; P9016; P9059

== ENCOUNTER 2019-01-08 08:44 | Emergency (ER) | payer MEDICARE, SELFPAY ==
[2019-01-08] VITALS (27 sets, daily range): BP systolic 86–124; BP diastolic 55–82; PULSE 103–118; RESP 13–29; TEMP 35.8–37.1; O2SAT 97–100
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
--- NOTE | 2019-01-08 08:48 | DI.CT_ITS ---
SYMPTOM/DIAGNOSIS: RIGHT SIDED ABDOMINAL PAIN, ASCITES ABDOMINAL AND PELVIC CT: 01/08 CT examination of the abdomen and pelvis was performed without contrast administration. Images obtained through the lung bases show multiple pulmonary bullae or cysts. There is massive abdominal ascites. Liver is of decreased attenuation. Spleen is small. Liver is enlarged. Very poor visualization of hepatic parenchyma. Pancreas grossly intact. Kidneys and adrenals grossly intact with no hydronephrosis. Abdominal aorta of normal diameter. No gross abdominal or pelvic adenopathy. CONCLUSION: Very limited examination. Severe abdominal ascites and patient reportedly has a history of cirrhosis.
[2019-01-08] MEDS: Ondansetron 4 MG/2 ML VIAL IVP (09:15)
[2019-01-08] MEDS: MORPHine 10 MG/ML VIAL 4 MG IVP ×3 (09:15→12:40)
[2019-01-08 09:37] LABS: Abs Immature Grans 0.05 k/cumm (0.0-0.09); Absolute Basophil Count 0.07 k/cumm (0.0-0.2); Absolute Eosinophil Count 0.01 k/cumm (0.0-0.7); Absolute Lymphocyte Count 1.41 k/cumm (1.2-3.4); Absolute Monocyte Count 0.85 k/cumm (0.11-0.7); Absolute Neutrophil Count 7.25 k/cumm (1.2-6.7); Basophils % 0.7; Eosinophils % 0.1; Immature Grans % 0.5; Lymphocytes % 14.6; Mean Corp. HGB Concentration 27.6 g/dL (32.0-36.0); Mean Corpuscular Volume 90.7 fL (80-95); Mean Platelet Volume 9.4 fL (8.0-11.0); Monocytes % 8.8; Neutrophils % 75.3; Platelet Count 188 x1000/uL (130-400); RBC 2.16 m/cumm (4.00-5.20); RBC Distribution Width 23.1 % (11.7-14.6); White Blood Cell Count 9.64 k/cumm (4.4-10.8)
[2019-01-08 09:43] LABS: INR 1.8 (0.9-1.1); PTT Activated 19.7 sec (21.0-31.4); Prothrombin Time 17.8 sec (9.3-11.0)
[2019-01-08 09:44] LABS: ALT 52 U/L (12-78); AST 136 U/L (15-37); Albumin 1.8 g/dL (3.4-5.0); Alkaline Phosphatase 109 U/L (46-116); Ammonia 101 umol/L (11-32); Anion Gap 14.6 mmol/L (3-11); BUN 16 mg/dL (7-18); Bilirubin, Total 3.4 mg/dL (0.2-1.0); CO2 19.4 mmol/L (21.0-32.0); CREATININE 1.07 mg/dL (0.55-1.02); Calcium 7.6 mg/dL (8.5-10.1); Chloride 101 mmol/L (98-107); Estimated GFR 52.31 (mL/min/1.73m2); Glucose 109 mg/dL (70-100); Lipase 244 U/L (73-393); Potassium 4.6 mmol/L (3.5-5.1); Sodium 135 mmol/L (136-145); Total Protein 7.5 g/dL (6.4-8.2)
[2019-01-08 09:45] LABS: HGB 5.4 g/dL (12.0-15.5)
[2019-01-08 09:46] LABS: HCT 19.6 % (36.0-46.0)
[2019-01-08 09:58] LABS: Anisocytosis 3+; Diff Comment RBC Morph Reviewed; Hypochromasia 3+; Poikilocytes 1+; Polychromasia Present
[2019-01-08 09:59] LABS: ETHANOL BLOOD < 3.0 mg/dL (<3)
[2019-01-08] MEDS: Pantoprazole 40 MG VIAL 80 MG IVP (10:06)
--- NOTE | 2019-01-08 10:07 | NUR.NOTE ---
Nursing Note: Lab at bedside drawing two sets of blood cultures prior to administration of antibiotics.
--- NOTE | 2019-01-08 10:13 | DI.VRAD_ITS ---
EXAM: CT Abdomen and Pelvis Without Contrast EXAM DATE/TIME: 01/08/2019 8:52 AM CLINICAL HISTORY: 58 years old, female; Abdominal pain; Localized; Right; Prior surgery; Surgery type: Tubal ligation 1999; Patient HX: HX cirrhosis, hep c; Additional info: Additional partial scan to limit breathing motion TECHNIQUE: Imaging protocol: Axial computed tomography images of the abdomen and pelvis without contrast. Coronal and sagittal reformatted images were created and reviewed. COMPARISON: CT ABDOMEN PELVIS W 10/20/2018 8:22 AM FINDINGS: Lungs: Pulmonary cysts are partially visualized. Liver: Evaluation of the liver is limited. Fatty liver again seen. Gallbladder and bile ducts: Gallstones again seen Pancreas: Unremarkable. No ductal dilation. Spleen: Unremarkable. No splenomegaly. Adrenals: Normal. No mass. Kidneys and ureters: Perinephric stranding. No hydronephrosis. Diffuse retroperitoneal stranding noted. Stomach and bowel: Distended stomach. Diverticulosis is again noted. Thickening of the wall of the colon is no longer appreciated. Diffuse fat stranding of the intra-abdominal subcutaneous fat probably related to ascites. Appendix: Not visualized Intraperitoneal space: Markedly increased simple fluid density ascites is identified since the prior study. Vasculature: Limited evaluation with no IV contrast. No aneurism seen. Lymph nodes: Limited evaluation with no IV contrast. Bladder: Unremarkable as visualized. Reproductive: Unremarkable as visualized. Bones/joints: No acute fracture. No dislocation. Soft tissues: phleboliths are seen in the pelvis. IMPRESSION: 1. Interval development of large ascites. Recommend paracentesis. 2. Diffuse stranding of the subcutaneous fat of the anterior abdominal wall may be related to large ascites. Evaluate clinically to rule out cellulitis. . Dictated and Authenticated by: Timmy Mora MD. Ordering:NOÉ High MD
[2019-01-08 10:21] LABS: Lactate 7.9 mmol/L (0.6-1.4)
[2019-01-08] MEDS: Normal Saline 1,000 ML 1000 ML IV (10:52)
[2019-01-08] MEDS: PIPERACILLIN/TAZO 4.5 GM in Normal Saline 100 ML IVPB (10:55)
[2019-01-08 10:58] LABS: Clarity CLEAR; Nucleated Cells 141 /MM3 (0-0); Source ASCITIC
[2019-01-08 11:12] LABS: Polynuclear Cells 1 % (0-0)
[2019-01-08 11:17] LABS: Mononuclear Cells 89 % (0-0); Other Cells 10 0 (0-0)
--- NOTE | 2019-01-08 11:43 | NUR.NOTE ---
Nursing Note: additional IV access established in the right AC 20G.
== END 2019-01-08 12:23 | disposition short-term general hospital (02) ==
PROVIDERS: Emergency Provider Student in an Organized Health Care Education/Training Program; PCP Nurse Practitioner
DX: R14.0 Abdominal distension (gaseous) (principal); R18.8 Other ascites; K92.2 Gastrointestinal hemorrhage, unspecified; I85.00 Esophageal varices without bleeding; F10.20 Alcohol dependence, uncomplicated; D50.9 Iron deficiency anemia, unspecified; R19.5 Other fecal abnormalities; R60.0 Localized edema; J44.9 Chronic obstructive pulmonary disease, unspecified; R79.1 Abnormal coagulation profile; R74.0 Nonspecific elevation of levels of transaminase and lactic acid dehydrogenase [LDH]; R79.89 Other specified abnormal findings of blood chemistry; Z86.19 Personal history of other infectious and parasitic diseases; F17.210 Nicotine dependence, cigarettes, uncomplicated
CPT/HCPCS: 36410; 36415; 36430; 49082; 80053; 83690; 86850; 86900; 86901; 86920; 87040; 93005; 96365; 96367; 96375; 96376; 99291; 74176; 80320; 82140; 83605; 85025; 85610; 85730; 87070; 87205; 89051; 93010; J2270; J2354; J2405; J2543; P9016

== ENCOUNTER 2019-03-16 19:29 | Emergency (ER) | payer MEDICARE, MEDICAID, SELFPAY ==
[2019-03-16] VITALS (41 sets, daily range): BP systolic 72–118; BP diastolic 41–66; PULSE 110–132; RESP 13–28; TEMP 36.7; O2SAT 93–100
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
[2019-03-16] MEDS: Normal Saline 1,000 ML 1000 ML IV (19:45)
[2019-03-16] MEDS: fentaNYL 100 MCG/2 ML VIAL 50 MCG IVP ×2 (19:55→20:25)
[2019-03-16] MEDS: cefTRIAXone 1 GM/50 ML BAG IVPB (20:02)
[2019-03-16] MEDS: Pantoprazole 40 MG VIAL IVP (20:03)
[2019-03-16 20:16] LABS: BE (Venous) -3.2 mmol/L (-3-3); HCO3 (Venous) 21 mmol/L (22-28); O2 Sat (Venous) 69 % (70-80); TCO2 (Venous) 20 mmol/L (22-29); pCO2 (Venous) 29 mm/Hg (34-47); pH (Venous) 7.46 (7.32-7.43); pO2 (Venous) 39 mm/Hg (28-44)
[2019-03-16 20:18] LABS: Abs Immature Grans 0.02 k/cumm (0.0-0.09); Absolute Basophil Count 0.05 k/cumm (0.0-0.2); Absolute Lymphocyte Count 0.76 k/cumm (1.2-3.4); Absolute Monocyte Count 0.39 k/cumm (0.11-0.7); Absolute Neutrophil Count 4.06 k/cumm (1.2-6.7); Basophils % 0.9; HCT 23.7 % (36.0-46.0); HGB 7.5 g/dL (12.0-15.5); Immature Grans % 0.4; Lymphocytes % 14.4; Mean Corp. HGB Concentration 31.6 g/dL (32.0-36.0); Mean Corpuscular Hemoglobin 30.4 pg (27.0-33.0); Mean Platelet Volume 9.2 fL (8.0-11.0); Monocytes % 7.4; Neutrophils % 76.9; Platelet Count 116 x1000/uL (130-400); RBC 2.47 m/cumm (4.00-5.20); RBC Distribution Width 24.1 % (11.7-14.6); White Blood Cell Count 5.28 k/cumm (4.4-10.8)
[2019-03-16 20:22] LABS: Lactate 6.5 mmol/L (0.6-1.4)
[2019-03-16] MEDS: Normal Saline Flush 10 ML SYR IVP (20:27)
[2019-03-16 20:35] LABS: Bilirubin, Direct 1.73 mg/dL (0.00-0.20); Bilirubin, Total 2.8 mg/dL (0.2-1.0)
[2019-03-16 20:36] LABS: ALT 33 U/L (14-59); AST 107 U/L (15-37); Albumin 1.7 g/dL (3.4-5.0); Alkaline Phosphatase 158 U/L (46-116); Anion Gap 11.8 mmol/L (3-11); BUN 3 mg/dL (7-18); Bilirubin, Total 2.8 mg/dL (0.2-1.0); CO2 21.2 mmol/L (21.0-32.0); CREATININE 0.88 mg/dL (0.55-1.02); Calcium 7.5 mg/dL (8.5-10.1); Chloride 107 mmol/L (98-107); Glucose 125 mg/dL (70-100); Lipase 348 U/L (73-393); Magnesium 1.3 mg/dL (1.8-2.4); Potassium 3.8 mmol/L (3.5-5.1); Sodium 140 mmol/L (136-145); Total Protein 6.5 g/dL (6.4-8.2)
[2019-03-16 20:37] LABS: Anisocytosis 3+; Diff Comment RBC Morph Reviewed; ETHANOL BLOOD < 3.0 mg/dL (<3)
[2019-03-16 20:37] LABS: PTT Activated 23.9 sec (21.0-31.4)
[2019-03-16] MEDS: Lactated Ringers 1,000 ML 1000 ML IV (20:59)
--- NOTE | 2019-03-16 21:00 | NUR.NOTE ---
Nursing Note: ice chips taken po without n/v.
[2019-03-16] MEDS: Lactated Ringers 1,000 ML 200 ML IV (22:04)
[2019-03-16] MEDS: MAGNESIUM SULFATE 2 GM/50 ML BAG IVPB (22:05)
[2019-03-16 22:43] LABS: Lactate 4.9 mmol/L (0.6-1.4)
--- NOTE | 2019-03-16 22:49 | NUR.NOTE ---
Nursing Note: BP systolic to 85, MD notified and IVF bilus given. ice chips po-tolerated well, no further n/v. OOB to cammode voided scant amount with very small amount of bloody stool-MD notified. no complaints of pain at present. resting quietly
== END 2019-03-16 23:20 | disposition short-term general hospital (02) ==
PROVIDERS: Emergency Medicine; Emergency Provider Emergency Medicine; PCP Nurse Practitioner
DX: K92.2 Gastrointestinal hemorrhage, unspecified (principal); E83.42 Hypomagnesemia; K70.30 Alcoholic cirrhosis of liver without ascites; R10.9 Unspecified abdominal pain; J44.9 Chronic obstructive pulmonary disease, unspecified; F17.210 Nicotine dependence, cigarettes, uncomplicated
CPT/HCPCS: 36415; 80053; 82805; 83690; 86850; 86900; 86901; 96361; 96365; 96366; 96367; 96375; 99284; 80320; 82247; 82248; 83605; 83735; 85025; 85610; 85730; J0696; J2354; J3010

== ENCOUNTER 2019-04-06 05:52 | Emergency (ER) | payer MEDICARE, MEDICAID, SELFPAY ==
[2019-04-06] VITALS (41 sets, daily range): BP systolic 89–130; BP diastolic 38–78; PULSE 95–126; RESP 12–37; TEMP 37–37.7; O2SAT 93–100
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
[2019-04-06 06:06] LABS: Abs Immature Grans 0.02 k/cumm (0.0-0.09); Absolute Basophil Count 0.11 k/cumm (0.0-0.2); Absolute Eosinophil Count 0.07 k/cumm (0.0-0.7); Absolute Lymphocyte Count 1.86 k/cumm (1.2-3.4); Absolute Monocyte Count 0.45 k/cumm (0.11-0.7); Absolute Neutrophil Count 2.51 k/cumm (1.2-6.7); Basophils % 2.2; Eosinophils % 1.4; HCT 27.1 % (36.0-46.0); HGB 8.4 g/dL (12.0-15.5); Immature Grans % 0.4; Lymphocytes % 37.1; Mean Corpuscular Hemoglobin 31.6 pg (27.0-33.0); Mean Corpuscular Volume 101.9 fL (80-95); Mean Platelet Volume 9.5 fL (8.0-11.0); Neutrophils % 49.9; Platelet Count 131 x1000/uL (130-400); RBC 2.66 m/cumm (4.00-5.20); RBC Distribution Width 22.4 % (11.7-14.6); White Blood Cell Count 5.02 k/cumm (4.4-10.8)
[2019-04-06] MEDS: Ondansetron 4 MG/2 ML VIAL (06:06)
[2019-04-06] MEDS: FAMOTIDINE 20 MG/50 ML BAG 100 MG IVPB (06:06)
[2019-04-06] MEDS: Normal Saline 1,000 ML 1000 ML IV (06:07)
[2019-04-06] MEDS: Pantoprazole 40 MG VIAL 80 MG IVP (06:19)
[2019-04-06] MEDS: Normal Saline 50 ML (06:20)
[2019-04-06 06:21] LABS: ALT 34 U/L (14-59); AST 90 U/L (15-37); Albumin 1.9 g/dL (3.4-5.0); Alkaline Phosphatase 125 U/L (46-116); Anion Gap 7.8 mmol/L (3-11); BUN 8 mg/dL (7-18); Bilirubin, Total 3.5 mg/dL (0.2-1.0); CO2 25.2 mmol/L (21.0-32.0); CREATININE 0.73 mg/dL (0.55-1.02); Calcium 7.3 mg/dL (8.5-10.1); Chloride 105 mmol/L (98-107); Glucose 93 mg/dL (70-100); Potassium 3.6 mmol/L (3.5-5.1); Sodium 138 mmol/L (136-145); Total Protein 7.1 g/dL (6.4-8.2)
[2019-04-06 06:24] LABS: INR 1.5 (0.9-1.1); PTT Activated 22.5 sec (21.0-31.4)
[2019-04-06 06:28] LABS: Ammonia 59 umol/L (11-32)
--- NOTE | 2019-04-06 06:33 | NUR.NOTE ---
[place] in for paracentesis. approx 3L fluid taken off, pt mary well. Reports pain down to 8/10. Med a/o.
--- NOTE | 2019-04-06 07:03 | NUR.NOTE ---
Attempted to review home medication list with pt, states she is unable to recall her medications, did not bring a list of meds.
[2019-04-06] MEDS: cefTRIAXone 1 GM/50 ML BAG IVPB (07:09)
[2019-04-06] MEDS: Ondansetron 4 MG/2 ML VIAL IVP (07:22)
--- NOTE | 2019-04-06 07:38 | DI.CT_ITS ---
EXAM: CT ABDOMEN PELVIS W CLINICAL HISTORY: bloody stools, abdominal pain,h/o GB bleed TECHNIQUE: CT examination of the abdomen and pelvis was performed with a bolus infusion of 100 cc's of Omnipaque 350. COMPARISON: CT ABDOMEN WO from 01/08/2019 FINDINGS: Images obtained through the lung bases show pronounced bullous emphysema. There is severe abdominal ascites, shrunken nodular appearance of the liver consistent with cirrhosis and unremarkable appearance of the spleen. Upper abdominal varices noted consistent with portal nubia ous hypertension. Portal vein opacifies normally. Adrenals and kidneys grossly unremarkable except for presumed left renal cyst. No gross abdominal or pelvic adenopathy. Pancreas is unremarkable in appearance. Cholelithiasis without obvious biliary dilatation. Nonspeci fic wall thickening multiple loops of small bowel and colon, enteritis versus nonspecific wall edema related to generalized abdominal ascites. No bulky adenopathy seen. Abdominal aorta is of normal di ameter and no major vascular abnormality is seen. Dye Expert structures grossly unremarkable. Appendix not specifically visualized. No evidence of bowel obstruction or perforation. IMPRESSION: Severe abdominal ascites, hepatics cirrhosis and findings related to portal venous hypertension. Mar ked diffuse bowel edema, nonspecific. No other focal significant findings.
[2019-04-06 07:39] LABS: Clarity CLEAR; Source PERITONEAL
[2019-04-06] MEDS: Omnipaque 350 MG/ML 100 ML BTL IJ (07:39)
[2019-04-06] MEDS: Normal Saline Flush 10 ML SYR IVP (07:40)
[2019-04-06 07:51] LABS: Polynuclear Cells 1 % (0-0)
[2019-04-06 07:52] LABS: Mononuclear Cells 99 % (0-0)
[2019-04-06 07:55] LABS: Nucleated Cells 192 /MM3 (0-0)
[2019-04-06] MEDS: HYDROmorphone 2 MG/ML VIAL 1 MG IVP (08:35)
--- NOTE | 2019-04-06 08:50 | NUR.NOTE ---
Nursing Note: Pt requested towel w/ water to wash face.
== END 2019-04-06 09:56 | disposition short-term general hospital (02) ==
PROVIDERS: Emergency Provider Student in an Organized Health Care Education/Training Program; PCP Nurse Practitioner
DX: K92.2 Gastrointestinal hemorrhage, unspecified (principal); R18.8 Other ascites; K70.30 Alcoholic cirrhosis of liver without ascites; F10.10 Alcohol abuse, uncomplicated; J44.9 Chronic obstructive pulmonary disease, unspecified; F17.210 Nicotine dependence, cigarettes, uncomplicated
CPT/HCPCS: 49082; 80053; 86850; 86900; 86901; 87040; 96361; 96365; 96367; 96375; 99285; 74177; 82140; 85025; 85610; 85730; 87070; 87205; 89051; J0696; J2354; J2405; J3490

== ENCOUNTER 2020-03-06 12:13 | Emergency (ER) | payer MEDICARE, SELFPAY ==
--- NOTE | 2020-03-06 12:15 | RT.EKG_ITS ---
APPROVED REPORT Exam: Resting ECG Patient Location: E HR:86 bpm ECG Measurements Heart Rate 86 AXIS VT 150 P 43 QRSd 79 QRS -22 QT 414 T 25 QTc 496 Conclusion Sinus rhythm...normal P axis, V-rate 60- 99 Probable left atrial enlargement...P >50mS, <-0.10mV V1 Low voltage, precordial leads...precordial leads <1.0mV I have reviewed and interpreted ECG and agree with software generated interpretation.
[2020-03-06 12:18] VITALS: BP 115/68; PULSE 85; RESP 20; TEMP 36.9; O2SAT 96
== END 2020-03-06 12:47 | disposition other institution (70) ==
PROVIDERS: Emergency Provider Physician Assistant; PCP Nurse Practitioner
DX: Z53.21 Procedure and treatment not carried out due to patient leaving prior to being seen by health care provider (principal)
CPT/HCPCS: 93005; 93010